=== PATIENT | female | born 1980 ===

== ENCOUNTER 2020-04-10 10:44 | Outpatient (REF) | payer MEDICARE, MEDICAID, SELFPAY ==
--- NOTE | 2020-04-10 10:46 | XR_ITS ---
EXAMINATION: KNEE X-RAY CLINICAL INFORMATION: Right knee pain COMPARISON: Previous x-rays most recent April 2015 TECHNIQUE: Standing AP view of both knees and lateral and sunrise view of the right knee FINDINGS: Right: No acute fracture or dislocation is seen. There is an old healed fracture of the tibial metaphysis and medial tibial plateau. There is mild depression of the medial tibial plateau. Joint spaces are otherwise normal. There is a small joint effusion. There is evidence of old trauma to the left knee with multiple small soft tissue foreign bodies. There is orthopedic pin in the proximal tibial metaphysis. XR/XR knee RT 2V IMPRESSION: Old posttraumatic deformity of the proximal tibia and depression of the medial tibial plateau unchanged from previous exams. Small joint effusion. Evidence of old trauma and surgery to the left knee.
--- NOTE | 2020-04-10 10:46 | XR_ITS ---
EXAMINATION: KNEE X-RAY CLINICAL INFORMATION: Right knee pain COMPARISON: Previous x-rays most recent April 2015 TECHNIQUE: Standing AP view of both knees and lateral and sunrise view of the right knee FINDINGS: Right: No acute fracture or dislocation is seen. There is an old healed fracture of the tibial metaphysis and medial tibial plateau. There is mild depression of the medial tibial plateau. Joint spaces are otherwise normal. There is a small joint effusion. There is evidence of old trauma to the left knee with multiple small soft tissue foreign bodies. There is orthopedic pin in the proximal tibial metaphysis. XR/XR knee standing BI IMPRESSION: Old posttraumatic deformity of the proximal tibia and depression of the medial tibial plateau unchanged from previous exams. Small joint effusion. Evidence of old trauma and surgery to the left knee.
== END 2020-04-10 10:45 | disposition home or self-care (01) ==
LOC: HO.HOSX 10:44
PROVIDERS: PCP Emergency Medicine; Visit Provider Orthopaedic Surgery
DX: M17.31 Unilateral post-traumatic osteoarthritis, right knee (principal)
CPT/HCPCS: 20610; 73560; 73565; 99212; J1040

== ENCOUNTER 2020-05-03 10:17 | Outpatient (REF) | payer MEDICARE, MEDICAID, SELFPAY ==
[2020-05-04 12:43] LABS: BV Int Neg Control Negative (Negative); BV Int Pos Control Positive (Positive)
[2020-05-04 19:17] LABS: C. trachomatis RNA TMA NOT DETECTED (NOT DETECTED); N. gonorrhoeae RNA TMA NOT DETECTED (NOT DETECTED)
[2020-05-07 15:47] LABS: HPV mRNA E6/E7 rflx Not Detected (Not Detected)
== END 2020-05-03 10:18 | disposition home or self-care (01) ==
LOC: HO.LAB 10:17
PROVIDERS: PCP Emergency Medicine; Visit Provider Advanced Practice Midwife
DX: Z12.4 Encounter for screening for malignant neoplasm of cervix (principal); R23.2 Flushing; N91.5 Oligomenorrhea, unspecified; R92.1 Mammographic calcification found on diagnostic imaging of breast; N88.9 Noninflammatory disorder of cervix uteri, unspecified; Z20.2 Contact with and (suspected) exposure to infections with a predominantly sexual mode of transmission
CPT/HCPCS: 36415; 81025; 87480; 87491; 87510; 87591; 87624; 87660; 88141; 88142

== ENCOUNTER 2020-05-17 10:49 | Outpatient (REF) | payer MEDICARE, MEDICAID, SELFPAY ==
--- NOTE | 2020-05-17 10:53 | US_ITS ---
EXAMINATION: ULTRASOUND OF THE PELVIS CLINICAL INFORMATION: Non inflammatory disorder of the cervix.. COMPARISON: 05/11/2019. TECHNIQUE: Transabdominal and transvaginal pelvic ultrasound. A transvaginal study was performed in addition to the transabdominal study which did not yield an adequate examination of the uterus and ovaries due to superimposed distended gas-filled loops of bowel. FINDINGS: The uterus is normal in size with heterogeneous appearance, measuring 9.2 x 5.2 x 6.2 cm longitudinally, anteroposteriorly and transversely. The endometrial stripe thickness is normal, measuring 0.9 cm in thickness. No focal myometrial mass is seen. Multiple nabothian cysts are seen at the cervix. The left ovary has been removed. The right ovary measures 7.1 x 4.4 x 2.8 cm for a volume of 45.8 mL. There is a dominant exophytic cyst present. This measures 4.8 x 2.7 x 2.7 cm. This appears simple. There are also somewhat prominent follicles noted, measuring up to 1.7 cm. Small amount of free fluid. US/US pelvic complete IMPRESSION: Somewhat heterogeneous appearance of the uterus with no focal mass identified. Multiple nabothian cysts at the cervix. Dominant right ovarian cyst measuring 4.8 cm. Additional smaller follicles noted. No solid mass. Small amount of free fluid in the pelvis.
--- NOTE | 2020-05-17 10:53 | US_ITS ---
EXAMINATION: ULTRASOUND OF THE PELVIS CLINICAL INFORMATION: Non inflammatory disorder of the cervix.. COMPARISON: 05/11/2019. TECHNIQUE: Transabdominal and transvaginal pelvic ultrasound. A transvaginal study was performed in addition to the transabdominal study which did not yield an adequate examination of the uterus and ovaries due to superimposed distended gas-filled loops of bowel. FINDINGS: The uterus is normal in size with heterogeneous appearance, measuring 9.2 x 5.2 x 6.2 cm longitudinally, anteroposteriorly and transversely. The endometrial stripe thickness is normal, measuring 0.9 cm in thickness. No focal myometrial mass is seen. Multiple nabothian cysts are seen at the cervix. The left ovary has been removed. The right ovary measures 7.1 x 4.4 x 2.8 cm for a volume of 45.8 mL. There is a dominant exophytic cyst present. This measures 4.8 x 2.7 x 2.7 cm. This appears simple. There are also somewhat prominent follicles noted, measuring up to 1.7 cm. Small amount of free fluid. US/US transvaginal IMPRESSION: Somewhat heterogeneous appearance of the uterus with no focal mass identified. Multiple nabothian cysts at the cervix. Dominant right ovarian cyst measuring 4.8 cm. Additional smaller follicles noted. No solid mass. Small amount of free fluid in the pelvis.
== END 2020-05-17 10:50 | disposition home or self-care (01) ==
LOC: HO.US 10:49
PROVIDERS: Visit Provider Advanced Practice Midwife
DX: N88.9 Noninflammatory disorder of cervix uteri, unspecified (principal)
CPT/HCPCS: 76830; 76856

== ENCOUNTER 2020-05-22 13:51 | Outpatient (REF) | payer MEDICARE, MEDICAID, SELFPAY ==
[2020-05-22 15:28] LABS: Thyroid Stimulating Hormone 0.86 uIU/mL (0.32-4.0)
[2020-05-23 09:07] LABS: Follicle Stimulating Hormone 7.2 mIU/mL
[2020-05-23 09:57] LABS: C. trachomatis RNA TMA NOT DETECTED (NOT DETECTED); N. gonorrhoeae RNA TMA NOT DETECTED (NOT DETECTED)
== END 2020-05-22 13:52 | disposition home or self-care (01) ==
LOC: HO.LAB 13:51
PROVIDERS: Visit Provider Advanced Practice Midwife
DX: N91.5 Oligomenorrhea, unspecified (principal); R23.2 Flushing; Z11.3 Encounter for screening for infections with a predominantly sexual mode of transmission; Z11.8 Encounter for screening for other infectious and parasitic diseases
CPT/HCPCS: 36415; 83001; 84443; 87491; 87591

== ENCOUNTER → 2020-06-05 14:12 | Outpatient (BNVA) | payer MEDICARE, MEDICAID, SELFPAY | PROVIDERS: Visit Provider Advanced Practice Midwife | DX: Z71.2 Person consulting for explanation of examination or test findings (principal); R87.610 Atypical squamous cells of undetermined significance on cytologic smear of cervix (ASC-US); N88.9 Noninflammatory disorder of cervix uteri, unspecified | CPT/HCPCS: 99212 ==

== ENCOUNTER 2020-06-19 07:54 | Outpatient (REF) | payer MEDICARE, MEDICAID, SELFPAY | END 2020-06-19 07:55 | disposition home or self-care (01) | LOC: HO.LAB 07:54 | PROVIDERS: Visit Provider Obstetrics & Gynecology | DX: R87.610 Atypical squamous cells of undetermined significance on cytologic smear of cervix (ASC-US) (principal) | CPT/HCPCS: 57454; 81025; 88305 ==

== ENCOUNTER → 2020-07-02 15:20 | Outpatient (BNVA) | payer MEDICARE, MEDICAID, SELFPAY | PROVIDERS: Visit Provider Obstetrics & Gynecology | DX: Z13.89 Encounter for screening for other disorder (principal) | CPT/HCPCS: Q3014 ==

== ENCOUNTER 2020-10-08 10:32 | Outpatient (REF) | payer MEDICARE, MEDICAID, SELFPAY ==
[2020-10-09 02:35] LABS: CT PCR NOT DETECTED (Not Detect.); NG PCR NOT DETECTED (Not Detect.)
[2020-10-09 09:15] LABS: BV Int Neg Control Negative (Negative); BV Int Pos Control Positive (Positive)
== END 2020-10-08 10:33 | disposition home or self-care (01) ==
LOC: HO.LAB 10:32
PROVIDERS: Visit Provider Advanced Practice Midwife
DX: Z20.2 Contact with and (suspected) exposure to infections with a predominantly sexual mode of transmission (principal)
CPT/HCPCS: 87480; 87491; 87510; 87591; 87660; 99212

== ENCOUNTER → 2020-10-10 07:58 | Outpatient (BNVA) | payer MEDICARE, MEDICAID, SELFPAY | PROVIDERS: Visit Provider Orthopaedic Surgery | DX: M17.31 Unilateral post-traumatic osteoarthritis, right knee (principal); Z90.722 Acquired absence of ovaries, bilateral | CPT/HCPCS: 20610; 99212; J1040 ==

== ENCOUNTER 2020-11-12 09:28 | Outpatient (REF) | payer MEDICARE, MEDICAID, SELFPAY ==
--- NOTE | ~2020-11-12 | MM_ITS ---
EXAMINATION: MM SCREENING DIGITAL BREAST TOMOSYNTHESIS, BILATERAL CLINICAL INFORMATION: Screening. Asymptomatic. Benign left stereotactic biopsy 02/10/2019 (Benign breast parenchyma with columnar cell changes, duct ectasia and stromal fibrosis; microcalcifications associated with columnar cell changes and terminal duct lobular units; negative for atypia or malignancy). The lifetime risk of breast cancer based on the Tyrer-Cuzick Model is 8%. COMPARISON: Mammography: 11/09/2019, 02/10/2019, 02/02/2019, 05/17/2015 TECHNIQUE: Digital breast tomosynthesis is performed in both the craniocaudal and mediolateral oblique views along with computer-aided detection (CAD). Synthesized 2D images are generated from the tomosynthesis. FINDINGS: The breasts are heterogeneously dense, which may obscure small masses (ACR BI-RADS breast composition Category c). There are no significant masses, abnormal calcifications, or other abnormalities. Parenchymal pattern is similar to prior studies. No developing density. There is biopsy clip marker central mid 3:00 left breast. Scattered bilateral punctate calcifications are similar to prior exam. The axilla and skin contours are unremarkable. MM/MM tomosynthesis screening BI IMPRESSION: No mammographic evidence of malignancy. ASSESSMENT: BI-RADS 2: Benign RECOMMENDATION: Routine annual mammography screening. This patient's information was entered into a reminder system with a target due date for their next mammogram.
== END 2020-11-12 09:29 | disposition home or self-care (01) ==
LOC: HO.MAMMO 09:28
PROVIDERS: PCP Internal Medicine; Visit Provider Advanced Practice Midwife
DX: Z12.31 Encounter for screening mammogram for malignant neoplasm of breast (principal)
CPT/HCPCS: 77063; 77067

== ENCOUNTER 2021-01-09 15:02 | Outpatient (REF) | payer MEDICARE, MEDICAID, SELFPAY ==
[2021-01-10 09:54] LABS: CT PCR NOT DETECTED (Not Detect.); NG PCR NOT DETECTED (Not Detect.)
[2021-01-10 11:02] LABS: BV Int Neg Control Negative (Negative); BV Int Pos Control Positive (Positive)
== END 2021-01-09 15:03 | disposition home or self-care (01) ==
LOC: HO.LAB 15:02
PROVIDERS: Visit Provider Advanced Practice Midwife
DX: N89.8 Other specified noninflammatory disorders of vagina (principal); Z20.2 Contact with and (suspected) exposure to infections with a predominantly sexual mode of transmission; Z90.721 Acquired absence of ovaries, unilateral
CPT/HCPCS: 87480; 87491; 87510; 87591; 87660; 99212

== ENCOUNTER → 2021-03-08 09:44 | Outpatient (BNVA) | payer MEDICARE, MEDICAID, SELFPAY | PROVIDERS: Visit Provider Orthopaedic Surgery | DX: M17.30 Unilateral post-traumatic osteoarthritis, unspecified knee (principal) | CPT/HCPCS: 99212; J1100 ==

== ENCOUNTER 2021-11-19 08:28 | Outpatient (REF) | payer MEDICARE, MEDICAID, SELFPAY ==
--- NOTE | ~2021-11-19 | MM_ITS ---
EXAMINATION: MM SCREENING DIGITAL BREAST TOMOSYNTHESIS, BILATERAL CLINICAL INFORMATION: Screening. Asymptomatic. The lifetime risk of breast cancer based on the Tyrer-Cuzick Model is 8%. COMPARISON: Mammography: 11/12/2020, 11/09/2019, 02/10/2019, 02/02/2019, 01/27/2019, 05/17/2015 TECHNIQUE: Digital breast tomosynthesis is performed in both the craniocaudal and mediolateral oblique views along with computer-aided detection (CAD). Synthesized 2D images are generated from the tomosynthesis. FINDINGS: The breasts are heterogeneously dense, which may obscure small masses (ACR BI-RADS breast composition Category c). Parenchymal pattern is similar to prior studies. There is no interval mass or developing density or architectural abnormality. Left breast has a biopsy clip marker anterior 3:00 position. The bilateral axilla and skin contours are unremarkable. Right breast focal grouped punctate calcifications central breast mid depth, questionably increased versus superimposed digital processing pseudo calcification. MM/MM tomosynthesis screening BI IMPRESSION: Right: -Punctate calcifications central breast mid depth questionably increased versus superimposed digital processing pseudo calcification. Left: -No mammographic evidence of malignancy. ASSESSMENT: BI-RADS 0: Incomplete - Need Additional Imaging Evaluation RECOMMENDATION: 1. Additional views of the right breast (magnification CC, magnification ML). 2. Radiology department staff will contact the patient for additional imaging. This patient's information was entered into a reminder system with a target due date for their next mammogram.
== END 2021-11-19 08:29 | disposition home or self-care (01) ==
LOC: HO.MAMMO 08:28
PROVIDERS: Visit Provider Advanced Practice Midwife
DX: Z12.31 Encounter for screening mammogram for malignant neoplasm of breast (principal)
CPT/HCPCS: 77063; 77067

== ENCOUNTER 2021-11-22 09:00 | Outpatient (REF) | payer MEDICARE, MEDICAID, SELFPAY ==
--- NOTE | ~2021-11-22 | MM_ITS ---
EXAMINATION: MM DIAGNOSTIC DIGITAL MAMMOGRAPHY, RIGHT CLINICAL INFORMATION: Calcifications. COMPARISON: Mammography: 11/19/2021 and studies dating back to 04/27/2015. TECHNIQUE: Digital mammography was performed in the following views: Spot magnification views of the right breast in craniocaudal and 90 degree mediolateral views. FINDINGS: The breasts are heterogeneously dense, which may obscure small masses (ACR BI-RADS breast composition Category c). The calcifications about the central aspect of the right breast have a rounded appearance without evidence of linear or branching forms and are likely benign. Recommend 6-month follow up right breast mammogram with magnification views. Results are provided to the patient at time of visit by the technologist. MM/MM added views RT IMPRESSION: Probable benign right breast calcifications for follow up in 6 months. ASSESSMENT: BI-RADS 3: Probably Benign RECOMMENDATION: Diagnostic mammography in 6 months. This patient's information was entered into a reminder system with a target due date for their next mammogram.
== END 2021-11-22 09:01 | disposition home or self-care (01) ==
LOC: HO.MAMMO 09:00
PROVIDERS: Visit Provider Advanced Practice Midwife
DX: R92.1 Mammographic calcification found on diagnostic imaging of breast (principal)
CPT/HCPCS: 77065

== ENCOUNTER 2021-12-16 11:46 | Outpatient (REF) | payer MEDICARE, MEDICAID, SELFPAY ==
[2021-12-16 17:01] LABS: CT PCR NOT DETECTED (Not Detect.); NG PCR NOT DETECTED (Not Detect.)
[2021-12-17 12:55] LABS: BV Int Neg Control Negative (Negative); BV Int Pos Control Positive (Positive)
[2021-12-19 08:32] LABS: HPV mRNA E6/E7 rflx Not Detected (Not Detected)
== END 2021-12-16 11:47 | disposition home or self-care (01) ==
LOC: HO.LAB 11:46
PROVIDERS: Visit Provider Advanced Practice Midwife
DX: Z01.411 Encounter for gynecological examination (general) (routine) with abnormal findings (principal); Z11.51 Encounter for screening for human papillomavirus (HPV); R10.2 Pelvic and perineal pain; Z20.2 Contact with and (suspected) exposure to infections with a predominantly sexual mode of transmission; R14.0 Abdominal distension (gaseous); Z87.42 Personal history of other diseases of the female genital tract
CPT/HCPCS: 87480; 87491; 87510; 87591; 87624; 87660; 88142; 99212

== ENCOUNTER 2021-12-18 11:52 | Outpatient (REF) | payer MEDICARE, MEDICAID, SELFPAY ==
[2021-12-18 14:28] LABS: Syphilis Screen Nonreactive (Nonreactive)
[2021-12-19 05:21] LABS: HBc Num1 0.07 S/CO (0.00-0.79); HIV AB/AG Nonreactive (Nonreactive); HIV Num 1 0.09 S/CO (0.00-0.99); Hepatitis B Core Antibody Nonreactive (Nonreactive); ~HepC Num1 0.09 S/CO (0.00-0.79); ~Hepatitis C Antibody Nonreactive (Nonreactive)
== END 2021-12-18 11:53 | disposition home or self-care (01) ==
LOC: HO.LAB 11:52
PROVIDERS: Visit Provider Advanced Practice Midwife
DX: Z11.4 Encounter for screening for human immunodeficiency virus [HIV] (principal); Z20.2 Contact with and (suspected) exposure to infections with a predominantly sexual mode of transmission
CPT/HCPCS: 36415; 86704; 86780; 86803; 87389

== ENCOUNTER 2022-03-11 11:04 | Outpatient (REF) | payer MEDICARE, MEDICAID, SELFPAY ==
--- NOTE | ~2022-03-11 | US_ITS ---
EXAMINATION: US PELVIS CLINICAL INFORMATION: Pelvic pain. History of ovarian cyst. History of left oophorectomy. COMPARISON: None. TECHNIQUE: Ultrasound of the pelvis is performed using both transabdominal and transvaginal transducers along with Doppler. Transvaginal imaging is performed due to inadequate visualization transabdominally. FINDINGS: Uterus: The uterus is retroverted, heterogeneous, enlarged and measures 10.5 cm in length, 5.1 mL in AP and 7.3 cm in transverse dimension. The double wall endometrial thickness is 0.9 cm. There is small myometrial anechoic cyst measuring 0.35 cm and the body of the uterus. No visible fibroid. Small anechoic cysts are seen in the cervix. Adnexa: The left ovary has been removed and not visualized. Right ovary measures 5.4 x 6.5 x 3.0 cm and volume 55.1 mL. There are several anechoic cysts seen. The largest measures 4.3 x 2.4 x 3.0 cm likely involuting corpus luteal cyst. There is no free fluid in the cul-de-sac. US/US pelvic and transvaginal IMPRESSION: 1. Retroverted, enlarged and heterogeneous uterus. No focal lesion seen. 2. Multiple right ovarian cysts with the largest measuring 4.3 cm likely involuting corpus luteal cyst. 3. The left ovary has been removed. 4. Nabothian cysts in the cervix. 5. There is no free fluid in the cul-de-sac.
== END 2022-03-11 11:05 | disposition home or self-care (01) ==
LOC: HO.US 11:04
PROVIDERS: Visit Provider Advanced Practice Midwife
DX: R10.2 Pelvic and perineal pain (principal); Z87.42 Personal history of other diseases of the female genital tract
CPT/HCPCS: 76830; 76856

== ENCOUNTER 2022-05-01 10:49 | Outpatient (REF) | payer MEDICARE, MEDICAID, SELFPAY ==
[2022-05-01 12:35] LABS: Hematocrit 41.8 % (37.0-47.0); Hemoglobin 13.4 g/dl (12.0-16.0); Mean Corpuscular HGB Conc 32.1 g/dl (31.0-35.0); Mean Corpuscular Hemoglobin 29.6 pg (27.0-33.0); Mean Corpuscular Volume 92.3 fL (80.0-98.0); Mean Platelet Volume 12.7 fL (9.4-12.3); Platelet Count 254 X10*3/uL (160-400); Red Blood Count 4.53 X10*6/uL (4.20-5.50); Red Cell Distribution Width 12.1 % (11.0-16.0); White Blood Count 11.8 X10*3/uL (4.8-10.8)
== END 2022-05-01 10:50 | disposition home or self-care (01) ==
LOC: HO.LAB 10:49
PROVIDERS: Visit Provider Advanced Practice Midwife
DX: N92.0 Excessive and frequent menstruation with regular cycle (principal); R10.2 Pelvic and perineal pain; Z71.3 Dietary counseling and surveillance
CPT/HCPCS: 36415; 85027; 99212

== ENCOUNTER 2022-05-27 11:28 | Outpatient (REF) | payer MEDICARE, MEDICAID, SELFPAY ==
--- NOTE | ~2022-05-27 | US_ITS ---
EXAMINATION: US PELVIS CLINICAL INFORMATION: History of other diseases of the female genital tract; the last menstrual period was on 05/10/2022. The left ovary is surgically absent. COMPARISON: Pelvic ultrasound dated 03/11/2022. TECHNIQUE: Ultrasound of the pelvis is performed using both transabdominal and transvaginal transducers along with Doppler. Transvaginal imaging is performed due to inadequate visualization transabdominally. FINDINGS: Uterus: The uterus is retroverted and retroflexed. The uterus measures 11.3 x 4.1 x 5.1 cm. Complex cysts are noted within the cervix, the largest measuring 1.3 x 0.8 x 0.8 cm. These likely represent nabothian cysts. The double wall endometrial thickness is 1.2 mm. The uterus is smooth in contour and has normal myometrial echogenicity. No visible fibroid. Adnexa: There is normal color flow to the adnexa. The left ovary is surgically absent. There is no right ovarian torsion. There is no pelvic ascites or fluid collection. Right ovary measures 3.4 x 2.9 x 1.9 cm, volume 9.8 mL. The right ovary contains a 1.3 x 1.2 x 1.2 cm corpus luteum cyst and a 1.3 cm maximal diameter dominant follicle. Adjacent to the right ovary, a 1.1 x 0.6 x 0.9 cm shadowing calcification is seen. A 4.6 x 2.6 x 3.3 cm adnexal cyst is seen, possibly a paraovarian cyst. US/US pelvic and transvaginal IMPRESSION: 1. There are complex cysts seen within the cervix, likely nabothian cysts. 2. A 1.3 cm right adnexal coarse calcification may represent a dermoid tumor. This could be further evaluated with pelvic MRI, if clinically indicated. Gynecology evaluation and management are recommended. 3. There is a continued stable 4.6 cm in maximal diameter right adnexal cyst, possibly a paraovarian cyst. 4. A small right ovarian corpus luteum cyst and dominant follicle are of incidental note. 5. The left ovary is surgically absent.
== END 2022-05-27 11:29 | disposition home or self-care (01) ==
LOC: HO.US 11:28
PROVIDERS: Visit Provider Internal Medicine
DX: Z87.42 Personal history of other diseases of the female genital tract (principal); Z90.721 Acquired absence of ovaries, unilateral
CPT/HCPCS: 76830; 76856

== ENCOUNTER → 2022-06-11 13:11 | Outpatient (BNVA) | payer MEDICARE, MEDICAID, SELFPAY | PROVIDERS: Visit Provider Advanced Practice Midwife | DX: Z71.2 Person consulting for explanation of examination or test findings (principal); R10.2 Pelvic and perineal pain; N83.201 Unspecified ovarian cyst, right side; N88.8 Other specified noninflammatory disorders of cervix uteri | CPT/HCPCS: 99212 ==

== ENCOUNTER 2022-06-24 08:15 | Outpatient (REF) | payer MEDICARE, MEDICAID, SELFPAY ==
--- NOTE | ~2022-06-24 | MR_ITS ---
EXAMINATION: MRI PELVIS WITH AND WITHOUT CONTRAST CLINICAL INFORMATION: Reason for Exam N83.201 - Unspecified ovarian cyst, right side COMPARISON: No previous MRI. Pelvic ultrasound 05/27/2012. TECHNIQUE: Multiple routine MRI sequences through the pelvis were obtained on a high-field 1.5 Marichuy MRI before and after the uneventful administration of 7.5 mL of Gadavist gadolinium-based IV contrast. FINDINGS: UTERUS: Retroverted uterus has a normal configuration and measures 8.6 cm [id number] x 5.4 cm anterior-posterior x 6.3 cm transverse. Normal endometrial thickness, 1 cm. Junctional zone is normal in signal and thickness. Small cyst in the left uterine fundus along the junctional zone. No focal uterine mass seen. CERVIX: Numerous nabothian cysts are present. VAGINA: Normal; no mass seen. RIGHT OVARY: The right ovary measures 4.1 x 2.5 x 2.8 cm. There are multiple follicles present. Inferior and posterior to the right ovary there is a paraovarian cyst measuring 4.2 x 2.7 x 2.6 cm. No abnormal enhancement. No soft tissue nodular component. No adnexal mass. LEFT OVARY: The left ovary is absent. No adnexal mass. KIDNEYS: Two normally positioned kidneys are seen. No hydronephrosis. Parapelvic cysts are noted. No specific follow-up recommended. BLADDER: Urinary bladder normal. PELVIC FREE FLUID: No free fluid or ascites. LYMPH NODES: No pathologically enlarged lymph nodes. OSSEOUS STRUCTURES: No acute or suspicious osseous abnormalities. MR/MR pelvis wo/w con IMPRESSION: 1. Right paraovarian cyst measuring up to 4.2 cm. No abnormal enhancement or soft tissue nodular component. This is simple appearing. No follow-up imaging recommended. 2. Multiple nabothian cysts are present.
== END 2022-06-24 08:16 | disposition home or self-care (01) ==
LOC: HO.MRI 08:15
PROVIDERS: Visit Provider Advanced Practice Midwife
DX: N83.201 Unspecified ovarian cyst, right side (principal)
CPT/HCPCS: 72197; A9585

== ENCOUNTER 2022-06-26 13:50 | Outpatient (REF) | payer MEDICARE, MEDICAID, SELFPAY ==
--- NOTE | ~2022-06-26 | MM_ITS ---
EXAMINATION: MM DIAGNOSTIC DIGITAL MAMMOGRAPHY, RIGHT CLINICAL INFORMATION: Short interval six-month follow-up probable benign round calcifications mid central right breast. The lifetime risk of breast cancer based on the Tyrer-Cuzick Model is 8%. COMPARISON: Mammography: 11/22/2021, 11/19/2021 (BI-RADS 0), 11/12/2020, 11/09/2019 TECHNIQUE: Digital mammography is performed in craniocaudal and mediolateral oblique views along with computer-aided detection (CAD). Additional magnification right CC and magnification right ML views are obtained. FINDINGS: The breasts are heterogeneously dense, which may obscure small masses (ACR BI-RADS breast composition Category c). Parenchymal pattern is similar to prior studies and there is no developing density or interval mass or architectural abnormality. The axilla and skin contours are unremarkable. There are a few small round benign-appearing calcifications mid central right breast slightly increased in number since 2019 and stable from prior diagnostic exam 11/22/2021. No pleomorphic types or ductal distribution. Right breast calcifications will be reassessed again at time of annual bilateral mammography, due in 6 months. Results are provided to the patient at time of visit by the technologist. MM/MM diagnostic mammo unilat RT IMPRESSION: Benign-appearing calcifications mid central right breast stable from prior diagnostic mammography. ASSESSMENT: BI-RADS 3: Probably Benign RECOMMENDATION: Diagnostic mammography at time of annual bilateral exam, due in 6 months. This patient's information was entered into a reminder system with a target due date for their next mammogram.
== END 2022-06-26 13:51 | disposition home or self-care (01) ==
LOC: HO.MAMMO 13:50
PROVIDERS: Visit Provider Advanced Practice Midwife
DX: R92.1 Mammographic calcification found on diagnostic imaging of breast (principal)
CPT/HCPCS: 77062; 77065

== ENCOUNTER → 2022-07-17 13:13 | Outpatient (BNVA) | payer MEDICARE, MEDICAID, SELFPAY | PROVIDERS: Visit Provider Advanced Practice Midwife | DX: Z71.2 Person consulting for explanation of examination or test findings (principal) | CPT/HCPCS: 99212 ==

== ENCOUNTER 2022-11-13 09:49 | Outpatient (REF) | payer MEDICARE, MEDICAID, SELFPAY ==
--- NOTE | ~2022-11-13 | XR_ITS ---
EXAMINATION: XR KNEE, STANDING BILATERAL XR KNEE, BILATERAL CLINICAL INFORMATION: Right knee pain. COMPARISON: 04/08/2020. TECHNIQUE: Standing AP view of both knees and lateral and sunrise view of the bilateral knees. FINDINGS: RIGHT KNEE: Redemonstration of deformity of the tibial metaphysis and deformity and depression of the medial tibial plateau compatible with given history of old healed fracture. Small joint effusion. LEFT KNEE: Redemonstration of deformity of left knee and proximal tibia compatible with history of old trauma. Multiple punctate radiodensities again seen in the soft tissues of the left knee compatible with foreign bodies. Small joint effusion. Redemonstration of an orthopedic pin in the proximal tibial metaphysis. XR/XR knee standing BI IMPRESSION: Redemonstration of deformity of bilateral knees compatible with given history of prior trauma. Small bilateral joint effusions.
--- NOTE | ~2022-11-13 | XR_ITS ---
EXAMINATION: XR KNEE, STANDING BILATERAL XR KNEE, BILATERAL CLINICAL INFORMATION: Right knee pain. COMPARISON: 04/08/2020. TECHNIQUE: Standing AP view of both knees and lateral and sunrise view of the bilateral knees. FINDINGS: RIGHT KNEE: Redemonstration of deformity of the tibial metaphysis and deformity and depression of the medial tibial plateau compatible with given history of old healed fracture. Small joint effusion. LEFT KNEE: Redemonstration of deformity of left knee and proximal tibia compatible with history of old trauma. Multiple punctate radiodensities again seen in the soft tissues of the left knee compatible with foreign bodies. Small joint effusion. Redemonstration of an orthopedic pin in the proximal tibial metaphysis. XR/XR knee LT 2V IMPRESSION: Redemonstration of deformity of bilateral knees compatible with given history of prior trauma. Small bilateral joint effusions.
--- NOTE | ~2022-11-13 | XR_ITS ---
EXAMINATION: XR KNEE, STANDING BILATERAL XR KNEE, BILATERAL CLINICAL INFORMATION: Right knee pain. COMPARISON: 04/08/2020. TECHNIQUE: Standing AP view of both knees and lateral and sunrise view of the bilateral knees. FINDINGS: RIGHT KNEE: Redemonstration of deformity of the tibial metaphysis and deformity and depression of the medial tibial plateau compatible with given history of old healed fracture. Small joint effusion. LEFT KNEE: Redemonstration of deformity of left knee and proximal tibia compatible with history of old trauma. Multiple punctate radiodensities again seen in the soft tissues of the left knee compatible with foreign bodies. Small joint effusion. Redemonstration of an orthopedic pin in the proximal tibial metaphysis. XR/XR knee RT 2V IMPRESSION: Redemonstration of deformity of bilateral knees compatible with given history of prior trauma. Small bilateral joint effusions.
== END 2022-11-13 09:50 | disposition home or self-care (01) ==
LOC: HO.HOSX 09:49
PROVIDERS: Visit Provider Orthopaedic Surgery
DX: M17.31 Unilateral post-traumatic osteoarthritis, right knee (principal); M17.32 Unilateral post-traumatic osteoarthritis, left knee; M16.11 Unilateral primary osteoarthritis, right hip
CPT/HCPCS: 20610; 73560; 73565; 99212; J1100

== ENCOUNTER 2022-11-13 10:17 | Outpatient (AMB) | payer MEDICARE, MEDICAID, SELFPAY ==
--- NOTE | 2022-11-13 10:48 | MHC.OFFVIS ---
Intake Intake Visit Reasons: OV- Rt. knee pain OA last inj 03/08/21 Intake Note: Nae is a 41 year old female who presents today for a follow up of her right knee, last injection was done 10/10/20. knee surgery in [place] to straighten her knee when she was 6. She underwent removal of hardware iat [facility] when she was 14. This was in both legs but her right knee is the painful. She would like to try repeat injection today Allergies No Known Allergies Allergy (Verified 06/11/22 13:15) HPI OV- Rt. knee pain OA last inj 03/08/21 HPI Details Nae is a 41 year old woman who presents with complains of right knee pain. She has post-traumatic knee OA. She has pain with daily activity with a hx of relief from injections, and her last was on 03/08/21. She had bilateral knee surgery in [place] to straighten her knee when she was 6. She underwent removal of hardware at [facility] when she was 14. She denies any left knee pain. She also complains of right hip pain, localized to the groin. She has completed a hip MRI. [facility] Medical History ASCUS of cervix with negative high risk HPV Club foot of both lower extremities Depression with anxiety Heavy menses History of abnormal cervical Pap smear Pelvic pain Surgical History History of tubal ligation Hx of unilateral oophorectomy Family History Brother Colon cancer Mother Ureter cancer Social History Alcohol intake: current Alcohol intake frequency: a few times a week Current occupational status: disabled Current occupation: Left Handed Sexual orientation: Straight/Heterosexual Gender identity: Female Review of Systems Const All systems reviewed & are unremarkable except as noted in HPI and below Physical Exam Const General: no acute distress and alert Orientation/consciousness: patient oriented x3 HEENT Head: Yes normocephalic and Yes atraumatic Eyes EOM: EOMs intact bilaterally Resp Effort & Inspection: normal respiratory effort and able to speak in complete sentences Cardio Jugular venous distension: no JVD Skin General skin exam: turgor normal Rashes: no rashes Neuro General: patient oriented x3 Extrem Other: Right Knee: valgus knee Subjective pain, objectively minimal pain on exam 1+ laxity to valgus stress testing Well-healed lateral incision Right Hip: Mild-moderate pain with extreme IR, adduction, flexion Psych Appearance: grossly normal Affect: normal affect Attitude: cooperative Office Procedures Joint Injection/Drain Joint Injection/Drain Details: Injected 1 mL of Decadron and 3 mL 1% lidocaine and 3 mL of 0.25% Marcaine. Site was prepped using aseptic technique. Patient tolerated the procedure well. Primary Site: right knee Approach Used: anterolateral Coding 24150 - Large joint Procedure code (CPT) selection complete Results Reviewed Results Reviewed: 11/13/22 10:48 BUPivacaine MPF 0.25 % [Sensorcaine-MPF 0.25% 10 ML] 10 ml .ROUTE .STK-MED ONE Lidocaine HCl 2 % MPF [Xylocaine 2 % MPF] 5 ml .ROUTE .STK-MED ONE dexAMETHasone sod phosphate [Decadron] 4 mg .ROUTE .STK-MED ONE I personally reviewed relevant radiographs. Severe right knee medial compartment OA, S/P BLANCA Mild-moderate left knee OA, S/P BLANCA I personally reviewed relevant MR images Mild right hip OA. Assessment & Plan Assessment & Plan (1) Post-traumatic osteoarthritis of right knee: Code(s): M17.31 - Unilateral post-traumatic osteoarthritis, right knee Plan: This is a 41 year old woman with severe medial compartment post-traumatic OA of the right knee, S/P BLANCA. She has pain with daily activity. She was last seen, and injected on 03/08/21, with good relief. I discussed her diagnosis and treatment options. She does not want injections. I injected her right knee today, which she tolerated well. She can follow up prn. (2) Osteoarthritis of right hip: Code(s): M16.11 - Unilateral primary osteoarthritis, right hip Plan: Reviewed MRI. (3) Post-traumatic osteoarthritis of left knee: Code(s): M17.32 - Unilateral post-traumatic osteoarthritis, left knee Plan Scribed for Francisco J Marquis MD by Bryn Emery medical case manager, on 11/13/22 at 11:00 AM, EST. Orders: Orders XR knee LT 2V 11/13/22 M25.569 - Pain in unspecified knee XR knee RT 2V 11/13/22 M25.569 - Pain in unspecified knee XR knee standing BI 11/13/22 M25.569 - Pain in unspecified knee Coding Level of Care Code Est Pt Level 4 (77886) Diagnoses Post-traumatic osteoarthritis of right knee M17.31 Osteoarthritis of right hip M16.11 Post-traumatic osteoarthritis of left knee M17.32 CPT Codes Coding - 71860 Large joint: 57550 - Large joint ([id number])
== END 2022-11-13 11:13 | disposition home or self-care (01) ==
PROVIDERS: Visit Provider Orthopaedic Surgery
DX: M17.31 Unilateral post-traumatic osteoarthritis, right knee (principal); M16.11 Unilateral primary osteoarthritis, right hip; M17.32 Unilateral post-traumatic osteoarthritis, left knee
CPT/HCPCS: 20610; 99214

== ENCOUNTER 2023-02-02 12:49 | Outpatient (REF) | payer MEDICARE, MEDICAID, SELFPAY ==
--- NOTE | ~2023-02-02 | MM_ITS ---
EXAMINATION: MM DIAGNOSTIC DIGITAL BREAST TOMOSYNTHESIS, BILATERAL CLINICAL INFORMATION: Six-month short interval follow-up probably benign round calcifications mid central right breast. Due for yearly screening. COMPARISON: Mammography: 06/26/2022. 11/22/2021, 11/19/2021, 11/12/2020, 11/09/2019. TECHNIQUE: Digital breast tomosynthesis is performed in both the craniocaudal and mediolateral oblique views along with computer-aided detection (CAD). Synthesized 2D images are generated from the tomosynthesis. In addition, spot magnification right CC and right ML views were obtained of the right breast. FINDINGS: There are scattered areas of fibroglandular density (ACR BI-RADS breast composition Category b). A tiny group of punctate, round, non-pleomorphic calcifications is present in the central slightly upper slightly lateral right breast, middle one third. The are unchanged in appearance and morphology when compared with prior examinations dating back to 11/22/2021. These have a probably benign appearance and morphology. There are stable in number. There are no linear, casting, or branching forms. There is a post benign biopsy clip in the left breast, lower slightly outer quadrant, middle one third. This is likely a second post benign biopsy clip in the 12:00 axis of the right breast, just above the nipple line. Stable intramammary lymph node in the axillary tail of the left breast. There are no suspicious masses, suspicious grouped calcifications, or areas of architectural distortion in either breast. The parenchymal pattern is stable from prior exams. MM/MM tomosynthesis diagnostic BI IMPRESSION: There are no significant changes from prior study. Stable probably benign calcifications right breast centrally. Stable benign findings. No findings suspicious for malignancy in either breast. ASSESSMENT: BI-RADS BI-RADS 3 - Probably benign finding(s) - 6 month follow-up suggested RECOMMENDATION: 6 Month F/U Results were provided to the patient at time of visit by the technologist. This patient's information was entered into a reminder system with a target due date for their next mammogram.
== END 2023-02-02 12:50 | disposition home or self-care (01) ==
LOC: HO.MAMMO 12:49
PROVIDERS: Visit Provider Advanced Practice Midwife
DX: R92.1 Mammographic calcification found on diagnostic imaging of breast (principal)
CPT/HCPCS: 77062; 77066

== ENCOUNTER → 2023-02-02 13:00 | Outpatient (BNV) | payer MEDICARE, MEDICAID, SELFPAY | PROVIDERS: Visit Provider Radiology Diagnostic Radiology | DX: R92.1 Mammographic calcification found on diagnostic imaging of breast (principal); R92.323 Mammographic fibroglandular density, bilateral breasts | CPT/HCPCS: 77062; 77066 ==

== ENCOUNTER 2023-03-23 12:07 | Outpatient (REF) | payer MEDICARE, SELFPAY ==
[2023-03-25 16:13] LABS: TS Negative Control Passed; TS Panel A 0; TS Panel B 0; TS Positive Control Passed; TSpotTB Negative (Negative)
== END 2023-03-23 12:08 | disposition home or self-care (01) ==
LOC: HO.HHCL 12:07
PROVIDERS: Visit Provider Internal Medicine
DX: Z11.1 Encounter for screening for respiratory tuberculosis (principal)
CPT/HCPCS: 36415; 86481

== ENCOUNTER 2023-03-27 10:56 | Outpatient (REF) | payer MEDICARE, SELFPAY ==
[2023-03-27 16:58] LABS: CT PCR NOT DETECTED (Not Detect.); NG PCR NOT DETECTED (Not Detect.)
[2023-03-28 11:58] LABS: BV Int Neg Control Negative (Negative); BV Int Pos Control Positive (Positive)
[2023-04-03 02:04] LABS: HPV mRNA E6/E7 rflx Not Detected (Not Detected)
== END 2023-03-27 10:57 | disposition home or self-care (01) ==
LOC: HO.LNP 10:56
PROVIDERS: Visit Provider Advanced Practice Midwife
DX: Z01.419 Encounter for gynecological examination (general) (routine) without abnormal findings (principal); R87.610 Atypical squamous cells of undetermined significance on cytologic smear of cervix (ASC-US); N94.6 Dysmenorrhea, unspecified; Z20.2 Contact with and (suspected) exposure to infections with a predominantly sexual mode of transmission; Z90.721 Acquired absence of ovaries, unilateral; Z79.899 Other long term (current) drug therapy
CPT/HCPCS: 0353U; 87480; 87510; 87624; 87660; 88142

== ENCOUNTER 2023-03-27 10:56 | Outpatient (AMB) | payer MEDICARE, SELFPAY ==
[2023-03-27 11:16] VITALS: BP 116/70; BMI 33.0
--- NOTE | 2023-03-27 11:16 | MHC.OFFVIS ---
Intake Vital Signs 03/27/23 11:16 Height 5 ft Weight 169 lb BMI 33.0 BP 116/70 Intake Visit Reasons: Annual Intake Note: pain in right hip going to her back when shes in her menses, and also getting a lot of headaches. Calender Wind Up Helper Required: Yes Calender Wind Up Helper Language: Portuguese Information Interpreted: non-clinical & clinical Patient Support Associate: Patient Support Associate Present (Aidyn) Allergies No Known Allergies Allergy (Verified 03/27/23 11:19) Medication List - Last Reconciled 03/27/23 by Christina Jimenez CNM bupropion HCl 150 mg PO QAM [shoe lift Please evaluate and treat for right leg length discrepancy] trazodone 100 mg PO DAILY valacyclovir 1,000 mg PO TID Is last menstrual period known: Yes Last menstrual period: 02/27/23 Post menopausal: No HPI Annual HPI Details Patient is here for obstetrics gynecology md annual exam she has been seen previously mostly by Dawna. She had been evaluated thoroughly for pelvic pain especially on her right side she had a pelvic ultrasound and a MRI that showed a simple paraovarian cyst that did not require any further imaging follow-up. Additionally there were some nabothian cysts. Patient has an extensive history of her being had her left ovary removed when she was a teenager and she also has an extensive history related to her clubfeet and having had leg surgery knee surgery and other issues that impact on pain in her hip because 1 leg is longer than the other. She also had some abnormal findings on breast exam and follows with regular mammograms and will be having 1 coming up and has had a biopsy with Dr. Kaufman in the past She also lately has been getting migraines and the pain seems to focus around her eyes especially left. She will be meeting a new primary care provider soon at the [facility] in [place] reminded her to bring that up there. She has had her tubes tied so she does not need another method of control. She says the pain is the same as when it got evaluated in the spring but she just wonders if is anything else to do about it the pain is really bad the 1st 2 days of her. Which lasts about 4 days total and the 3rd day it is already getting a little bit better her. 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 The pain she associates with her period Is usually in her back and on her right side. [facility] Medical History Heavy menses History of abnormal cervical Pap smear ASCUS of cervix with negative high risk HPV Pelvic pain Club foot of both lower extremities Depression with anxiety Surgical History Hx of unilateral oophorectomy History of tubal ligation Family History Brother Colon cancer Mother Ureter cancer Social History Alcohol intake: current Alcohol intake frequency: a few times a week Current occupational status: disabled Current occupation: Left Handed Sexual orientation: Straight/Heterosexual Gender identity: Female Female Reproductive History Menstrual Age of Menarche: 9 Duration of menses: 3-5 days Date of last menstrual period: 02/27/23 control method: other (tubal ligation) Total pregnancies: 4 Full term: 3 Number of Living Children: 3 Ab spontaneous: 1 Date of last pap smear: 12/17/21 (negative) History of abnormal pap smear: Yes (2020 ASCUS) Date of Mammogram: 02/02/23 Physical Exam Vital Signs: Last Vital Signs BP 116/70 03/27/23 11:16 BMI result Body Mass Index 33.0 Const General: healthy appearing, comfortable, no acute distress, well developed and alert Nutritional Appearance: average body habitus Orientation/consciousness: patient oriented x3 Limitations: no limitations HEENT Head: Yes normocephalic Neck Neck: Yes normal visual inspection Thyroid: Thyroid normal Chest Chest palpation & inspection: normal inspection of the chest Breast/axilla inspection: normal inspection of the breasts and normal inspection of the axillae Breast/axilla palpation: normal palpation of the breasts and normal palpation of the axillae Resp Effort & Inspection: normal respiratory effort GI Inspection: Yes normal to inspection, No Abdominal wall edema and No distended Palpation (GI): Soft to palpation and nontender Other: Normal speculum exam. Cervix parous smooth pink with nabothian cysts especially above os. Uterus is markedly retroverted cervix is very anterior. Good tone with Kegel adnexa not tender palpable on right but not on left. General: Yes bladder normal to palpation External Female Exam: normal external appearance and normal appearance of the urethra Speculum Exam - Vagina: normal appearance of the vagina, normal palpation and normal vaginal discharge Speculum Exam - Cervix: normal appearance of the cervix, normal palpation and nontender Bimanual exam- vagina & uterus: normal bimanual exam, normal palpation, uterine size normal, bladder normal to palpation, consistency normal, normal palpation, uterine mobility normal, uterine shape normal, No Cervical tenderness present, non-tender and no cervical motion tenderness Bimanual Exam- Adnexa, other: normal adnexae, no masses, normal and No adnexal tenderness Neuro General: patient oriented x3 Results Reviewed Results Reviewed: Patient: Nae Joseph MR#: [id number] : 1980 Acct:[id number] Age/Sex: 41 / F ADM Date: 06/24/22 Loc: HO.MRI Attending Dr: Dawna Casiano CNM Ordering Physician: Dawna Casiano CNM Date of Service: 06/24/22 Procedure(s): MR pelvis wo/w con Accession Number(s): [id number] cc: Dawna Casiano CNM~ EXAMINATION: MRI PELVIS WITH AND WITHOUT CONTRAST CLINICAL INFORMATION: Reason for Exam N83.201 - Unspecified ovarian cyst, right side COMPARISON: No previous MRI. Pelvic ultrasound 05/27/2012. TECHNIQUE: Multiple routine MRI sequences through the pelvis were obtained on a high-field 1.5 Marichuy MRI before and after the uneventful administration of 7.5 mL of Gadavist gadolinium-based IV contrast. FINDINGS: UTERUS: Retroverted uterus has a normal configuration and measures 8.6 cm [id number] x 5.4 cm anterior-posterior x 6.3 cm transverse. Normal endometrial thickness, 1 cm. Junctional zone is normal in signal and thickness. Small cyst in the left uterine fundus along the junctional zone. No focal uterine mass seen. CERVIX: Numerous nabothian cysts are present. VAGINA: Normal; no mass seen. RIGHT OVARY: The right ovary measures 4.1 x 2.5 x 2.8 cm. There are multiple follicles present. Inferior and posterior to the right ovary there is a paraovarian cyst measuring 4.2 x 2.7 x 2.6 cm. No abnormal enhancement. No soft tissue nodular component. No adnexal mass. LEFT OVARY: The left ovary is absent. No adnexal mass. KIDNEYS: Two normally positioned kidneys are seen. No hydronephrosis. Parapelvic cysts are noted. No specific follow-up recommended. BLADDER: Urinary bladder normal. PELVIC FREE FLUID: No free fluid or ascites. LYMPH NODES: No pathologically enlarged lymph nodes. OSSEOUS STRUCTURES: No acute or suspicious osseous abnormalities. MR/MR pelvis wo/w con IMPRESSION: 1. Right paraovarian cyst measuring up to 4.2 cm. No abnormal enhancement or soft tissue nodular component. This is simple appearing. No follow-up imaging recommended. 2. Multiple nabothian cysts are present. Dictated By: Miah Mixon MD Signed By: <Electronically signed by Miah Mixon MD in [place]> 07/03/22 0945 DD/ 0900 TD/TT: Tra Patient: Nae Joseph MR#: [id number] : 1980 Acct:[id number] Age/Sex: 41 / F ADM Date: 05/27/22 Loc: . Attending Dr: Cayetano Casiano MD Ordering Physician: Dawna Casiano CNM Date of Service: 05/27/22 Procedure(s): US pelvic and transvaginal Accession Number(s): [id number] cc: Dawna Casiano CNM~ EXAMINATION: US PELVIS CLINICAL INFORMATION: History of other diseases of the female genital tract; the last menstrual period was on 05/10/2022. The left ovary is surgically absent. COMPARISON: Pelvic ultrasound dated 03/11/2022. TECHNIQUE: Ultrasound of the pelvis is performed using both transabdominal and transvaginal transducers along with Doppler. Transvaginal imaging is performed due to inadequate visualization transabdominally. FINDINGS: Uterus: The uterus is retroverted and retroflexed. The uterus measures 11.3 x 4.1 x 5.1 cm. Complex cysts are noted within the cervix, the largest measuring 1.3 x 0.8 x 0.8 cm. These likely represent nabothian cysts. The double wall endometrial thickness is 1.2 mm. The uterus is smooth in contour and has normal myometrial echogenicity. No visible fibroid. Adnexa: There is normal color flow to the adnexa. The left ovary is surgically absent. There is no right ovarian torsion. There is no pelvic ascites or fluid collection. Right ovary measures 3.4 x 2.9 x 1.9 cm, volume 9.8 mL. The right ovary contains a 1.3 x 1.2 x 1.2 cm corpus luteum cyst and a 1.3 cm maximal diameter dominant follicle. Adjacent to the right ovary, a 1.1 x 0.6 x 0.9 cm shadowing calcification is seen. A 4.6 x 2.6 x 3.3 cm adnexal cyst is seen, possibly a paraovarian cyst. US/US pelvic and transvaginal IMPRESSION: 1. There are complex cysts seen within the cervix, likely nabothian cysts. 2. A 1.3 cm right adnexal coarse calcification may represent a dermoid tumor. This could be further evaluated with pelvic MRI, if clinically indicated. Gynecology evaluation and management are recommended. 3. There is a continued stable 4.6 cm in maximal diameter right adnexal cyst, possibly a paraovarian cyst. 4. A small right ovarian corpus luteum cyst and dominant follicle are of incidental note. 5. The left ovary is surgically absent. Dictated By: Aramis Green MD Signed By: <Electronically signed by Aramis Green MD in OV> 05/28/222130 DD/ 9066 TD/TT: Batter Out: Assessment & Plan Assessment & Plan (1) Osteoarthritis of right hip: Code(s): M16.11 - Unilateral primary osteoarthritis, right hip (2) Acquired leg length discrepancy: Code(s): M21.70 - Unequal limb length (acquired), unspecified site (3) Hx of unilateral oophorectomy: Comment: left Code(s): Z90.721 - Acquired absence of ovaries, unilateral (4) Potential exposure to STD: Code(s): Z20.2 - Contact with and (suspected) exposure to infections with a predominantly sexual mode of transmission (5) Atypical squamous cells of undetermined significance (ASCUS) on Papanicolaou smear of cervix: Code(s): R87.610 - Atypical squamous cells of undetermined significance on cytologic smear of cervix (ASC-US) (6) Severe dysmenorrhea: Code(s): N94.6 - Dysmenorrhea, unspecified Plan Discussed her painful periods and ways to explore from here she already had a man MRI and a pelvic ultrasound in the spring. And there really isn't an indication currently to repeat any of these tests as the pain is about the same it is not worse. He in fact her periods are not as heavy as they were a few months ago.. Discussed options control pills would not be indicated in her case discussed the possible use of a Mirena and I gave her the information in Portuguese for now she would like to try naproxen which I will prescribe every 12 hours for her to start at the start of her painful periods and she will see how that works out. She is going to be seeing a new primary care provider in the end of March and will discuss her migraine headaches with them and also she is getting her every 6 month follow-up for her mammograms. Pap showed ASCUS in 2019 1-in 2021 Pap was repeated today reviewed the possible findings and what to expect and to not worry if BV shows up though her discharge appeared completely normal. If The patient gets more pain or something changes she will let us know but she will give it a try for the naproxen otherwise will see her in a year. Orders: Orders CT NG by PCR Today Z20.2 - Contact with and (suspected) exposure to infections with a predominantly sexual mode of transmission Pap Smear Today R87.610 - Atypical squamous cells of undetermined significance on cytologic smear of cervix (ASC-US) Bacterial Vaginosis Panel Today Z20.2 - Contact with and (suspected) exposure to infections with a predominantly sexual mode of transmission Medications: New naproxen (EC-Naproxen) Take every 12 hours at the very start of menstrual pain for 1st 2-3 days of menses 500 mg PO BID PRN 90 tabs 0RF pain Coding Level of Care Code Est Pt Prev Care 40-64y(11560) Diagnoses Osteoarthritis of right hip M16.11 Acquired leg length discrepancy M21.70 Hx of unilateral oophorectomy Z90.721 Potential exposure to STD Z20.2 Atypical squamous cells of undetermined significance (ASCUS) on Papanicolaou smear of cervix R87.610 Severe dysmenorrhea N94.6
== END 2023-03-27 12:02 | disposition home or self-care (01) ==
LOC: HO.HWS 10:56
PROVIDERS: Visit Provider Advanced Practice Midwife
DX: Z01.419 Encounter for gynecological examination (general) (routine) without abnormal findings (principal); Z20.2 Contact with and (suspected) exposure to infections with a predominantly sexual mode of transmission; Z90.721 Acquired absence of ovaries, unilateral; M16.11 Unilateral primary osteoarthritis, right hip; M21.70 Unequal limb length (acquired), unspecified site
CPT/HCPCS: 99396

== ENCOUNTER 2023-04-17 09:35 | Outpatient (REF) | payer MEDICARE, SELFPAY ==
[2023-04-17 11:42] LABS: MANUAL DIFF FLAG NO
[2023-04-17 11:51] LABS: Basophils Percent Auto 0.4 % (0-2); Eosinophils Absolute Auto 0.7 X10*3/uL (0.0-0.4); Eosinophils Percent Auto 10.7 % (0-4); Hematocrit 42.9 % (37.0-47.0); Hemoglobin 13.7 g/dl (12.0-16.0); Imm Gran Abs Auto 0.01 X10*3/uL (0.00-0.03); Imm Gran Pct Auto 0.1 % (0.0-0.4); Lymphocytes Absolute Auto 2.8 X10*3/uL (1.2-4.9); Lymphocytes Percent Auto 40.9 % (20-40); Mean Corpuscular HGB Conc 31.9 g/dl (31.0-35.0); Mean Corpuscular Hemoglobin 28.8 pg (27.0-33.0); Mean Corpuscular Volume 90.1 fL (80.0-98.0); Mean Platelet Volume 12.8 fL (9.4-12.3); Monocytes Absolute Auto 0.7 X10*3/uL (0.1-1.2); Monocytes Percent Auto 10.1 % (2-11); Neutrophils Absolute Auto 2.6 x10*3/uL (2.0-8.3); Neutrophils Percent Auto 37.8 % (45-73); Platelet Count 206 X10*3/uL (160-400); Red Blood Count 4.76 X10*6/uL (4.20-5.50); Red Cell Distribution Width 12.6 % (11.0-16.0); White Blood Count 6.8 X10*3/uL (4.8-10.8)
[2023-04-17 12:05] LABS: Estimated Average Glucose 108 mg/dL; Hemoglobin A1C 125.3436 umol/L; Hemoglobin A1c % 5.4 % (<6.0)
[2023-04-17 12:11] LABS: HBS Num1 289.57 mIU/mL (0-7.99); HBc Num1 0.13 S/CO (0.00-0.79); HBsAGNum1 0.53 S/CO (0.00-0.99); Hepatitis B Core Antibody Nonreactive (Nonreactive); Hepatitis B Surface Antigen Negative (Negative); ~Hepatitis B Surface Antibody REACTIVE (Nonreactive)
[2023-04-17 12:19] LABS: Alanine Aminotransferase 32 U/L (0-31); Albumin Level 3.7 g/dL (3.5-5.0); Alkaline Phosphatase 63 U/L (39-117); Anion Gap 11 (12-20); Aspartate Amino Transferase 52 U/L (5-31); Bilirubin Total 0.5 mg/dL (0.0-1.0); Blood Urea Nitrogen 9 mg/dL (9-16); Calcium 9.1 mg/dL (8.4-10.2); Carbon Dioxide 26 mmol/L (22-29); Chloride 107 mmol/L (96-108); Cholesterol 164 mg/dL (<200); Estimated Glomerular Filt Rate > 60; Glucose Random 95 mg/dL (60-115); HDL Cholesterol 46 mg/dL (>40); LDL Cholesterol Calculated 96 mg/dL (<100); Potassium 4.1 mmol/L (3.3-5.1); Sodium 140 mmol/L (135-145); Total Protein 7.3 g/dL (6.5-8.0); Triglycerides 110 mg/dL (<150)
[2023-04-17 12:20] LABS: TSH reflex Free T4 1.85 uIU/mL (0.32-4.0)
== END 2023-04-17 09:36 | disposition home or self-care (01) ==
LOC: HO.HHCL 09:35
PROVIDERS: Visit Provider Registered Nurse
DX: Z00.00 Encounter for general adult medical examination without abnormal findings (principal)
CPT/HCPCS: 36415; 80053; 80061; 83036; 84443; 85025; 86704; 86706; 87340

== ENCOUNTER 2023-05-07 10:11 | Outpatient (REF) | payer MEDICARE, SELFPAY | END 2023-05-07 10:12 | disposition home or self-care (01) | LOC: HO.LNP 10:11 | PROVIDERS: Visit Provider Obstetrics & Gynecology | DX: R87.610 Atypical squamous cells of undetermined significance on cytologic smear of cervix (ASC-US) (principal); R87.810 Cervical high risk human papillomavirus (HPV) DNA test positive; Z32.02 Encounter for pregnancy test, result negative | CPT/HCPCS: 57454; 81025; 88305 ==

== ENCOUNTER 2023-05-07 10:11 | Outpatient (AMB) | payer MEDICARE, SELFPAY ==
--- NOTE | 2023-05-07 10:34 | A.OFFVIS_ITS ---
Intake Vital Signs 05/07/23 10:40 Height 5 ft Weight 167 lb 8.821 oz BMI 32.7 BP 110/74 Intake Visit Reasons: Colposcopy Jewelry Making Instructor Required: Yes Jewelry Making Instructor Language: Sql Ssrs Ssis Developer Name: Valentine SINGH Information Interpreted: non-clinical & clinical Sales Service Supervisor: Sales Service Supervisor Present (Valentine SINGH) Accompanied by: Self / Same As Patient Allergies No Known Allergies Allergy (Verified 05/07/23 10:41) Is last menstrual period known: Yes Last menstrual period: 04/23/23 HPI HPI Comments History of Present Illness Details Presenting for colposcopy [facility] Medical History Heavy menses History of abnormal cervical Pap smear ASCUS of cervix with negative high risk HPV Pelvic pain Club foot of both lower extremities Depression with anxiety Surgical History Hx of unilateral oophorectomy History of tubal ligation Family History Brother Colon cancer Mother Ureter cancer Social History Alcohol intake: current Alcohol intake frequency: a few times a week Current occupational status: disabled Current occupation: Left Handed Sexual orientation: Straight/Heterosexual Gender identity: Female Female Reproductive History Menstrual Age of Menarche: 9 Date of last menstrual period: 04/23/23 Physical Exam Vital Signs: Last Vital Signs BP 110/74 05/07/23 10:40 BMI result Body Mass Index 32.7 Office Procedures Colposcopy Before the procedure was started discussed with the patient the procedure, alternatives & all the risks associated with the procedure (bleeding, infection, injury to vagina, bladder, vessels, possible need for transfusion with all its risks) then patient signed the consent Pap smear = ascus/HPV positive Urine test done in the office was negative Speculum inserted, acetic acid used Colposcopy done Transformation zone seen, acetowhite lesions identified at 6+9+11+12+3 o?clock, cervical biopsies taken from 6+9+11+12+3 o?clock, ECC done afterwards. Vaginoscopy of the upper vagina showed no evidence of any aceto-white lesions Monsel solution used for hemostasis. The patient tolerated well . At the end the patient was instructed to call if temp>100.4, abdominal pain, n/v, bleeding; The patient was given the following instructions: nothing per vagina, no intercourse or bath tub use. All questions answered the patient verbalized understanding. Instructed the patient to make an appointment in 2 weeks for follow-up This note was generated with a voice recognition program. Some errors may have been overlooked during the review of this note. Sometimes these errors may affect the content or meaning of a given sentence. [id number]-[id number] of cervix including upper vagina with biopsy and ECC Procedure code (CPT) selection complete Results AMB Test Urine AMB Test Urine Negative Last Edit by Valentine Vicente CMA on 10:43 Results Reviewed Results Reviewed: Laboratory Last Values Tst Clinic Negative 05/07/23 10:42 Assessment & Plan Assessment & Plan (1) ASCUS with positive high risk HPV cervical: Code(s): R87.610 - Atypical squamous cells of undetermined significance on cytologic smear of cervix (ASC-US); R87.810 - Cervical high risk human papillomavirus (HPV) DNA test positive Plan: Colposcopy done, see procedure note Orders: Orders AMB Colposcopy Today R87.610 - Atypical squamous cells of undetermined significance on cytologic smear of cervix (ASC-US), R87.810 - Cervical high risk human papillomavirus (HPV) DNA test positive AMB HCG Urine Test Today Z32.02 - Encounter for test, result negative Coding Level of Care Code Procedure Only Diagnoses ASCUS with positive high risk HPV cervical R87.610; R87.810 CPT Codes Colposcopy - CPT: 32475-Jijbgqocx of cervix including upper vagina with biopsy and ECC ([id number])
[2023-05-07 10:40] VITALS: BP 110/74; BMI 32.7
== END 2023-05-07 13:33 | disposition home or self-care (01) ==
LOC: HO.HWS 10:11
PROVIDERS: Visit Provider Obstetrics & Gynecology
DX: R87.610 Atypical squamous cells of undetermined significance on cytologic smear of cervix (ASC-US) (principal); R87.810 Cervical high risk human papillomavirus (HPV) DNA test positive; Z32.02 Encounter for pregnancy test, result negative
CPT/HCPCS: 57454

== ENCOUNTER 2023-06-17 12:25 | Outpatient (AMB) | payer MEDICARE, SELFPAY ==
--- NOTE | 2023-06-17 12:39 | A.OFFVIS_ITS ---
Intake Vital Signs 06/17/23 12:41 Height 5 ft Weight 167 lb 8.821 oz BMI 32.7 BP 118/68 Intake Visit Reasons: colpo results Dairy Inspector Required: Yes Dairy Inspector Language: Supervisor Finishing Department Name: Valentine SINGH Information Interpreted: non-clinical & clinical Accompanied by: Self / Same As Patient Allergies No Known Allergies Allergy (Verified 06/17/23 12:42) Is last menstrual period known: Yes Last menstrual period: 05/24/23 HPI HPI Comments History of Present Illness Details Presenting post colpo for follow-up. The patient is doing well with no complaints. The pathology showed the following: A. Endocervix, curettage: Endocervical glandular mucosa with squamous metaplasia; negative for dysplasia. B. Cervix, 3:00, biopsy: Squamous and endocervical glandular mucosa with inflammation and metaplasia; negative for dysplasia. C. Cervix, 6:00, biopsy: Squamous and endocervical glandular mucosa with inflammation, metaplasia, and cysts; negative for dysplasia. D. Cervix, 9:00, biopsy: Squamous and endocervical glandular mucosa with inflammation, metaplasia, and cysts; negative for dysplasia. E. Cervix, 11:00, biopsy: Squamous and endocervical glandular mucosa with inflammation, metaplasia, and cysts; negative for dysplasia. F. Cervix, 12:00, biopsy: Squamous and endocervical glandular mucosa with inflammation and metaplasia; negative for dysplasia [facility] Medical History Heavy menses History of abnormal cervical Pap smear ASCUS of cervix with negative high risk HPV Pelvic pain Club foot of both lower extremities Depression with anxiety Surgical History Hx of unilateral oophorectomy History of tubal ligation Family History Brother Colon cancer Mother Ureter cancer Social History Alcohol intake: current Alcohol intake frequency: a few times a week Current occupational status: disabled Current occupation: Left Handed Sexual orientation: Straight/Heterosexual Gender identity: Female Female Reproductive History Menstrual Age of Menarche: 9 Date of last menstrual period: 05/24/23 Review of Systems Const All systems reviewed & are unremarkable except as noted in HPI and below Reports as per HPI and Reports no additional complaints GI Reports no additional complaints Reports no additional complaints Physical Exam Vital Signs: Last Vital Signs BP 118/68 06/17/23 12:41 BMI result Body Mass Index 32.7 Assessment & Plan Assessment & Plan (1) ASCUS with positive high risk HPV cervical: Code(s): R87.610 - Atypical squamous cells of undetermined significance on cytologic smear of cervix (ASC-US); R87.810 - Cervical high risk human papillomavirus (HPV) DNA test positive Plan: Discussed with the patient the pathology results of the colposcopy biopsies & endocervical curettage ( negative). Discussed with the patient the sensitivity specificity, positive and negative predictive value in detecting cervical cancer in addition discussed the regression, persistence and progression rates. Recommended co-testing in 12 months, if cytology and or HPV are abnormal will proceed was colposcopy biopsy and endocervical curettage. Instructions given to the patient to schedule a co test appointment in 1 year. All questions answered the patient verbalized understanding. Coding Level of Care Code Est Pt Level 3 (29030) Diagnoses ASCUS with positive high risk HPV cervical R87.610; R87.810
[2023-06-17 12:41] VITALS: BP 118/68; BMI 32.7
== END 2023-06-17 13:01 | disposition home or self-care (01) ==
LOC: HO.HWS 12:25
PROVIDERS: Visit Provider Obstetrics & Gynecology
DX: R87.610 Atypical squamous cells of undetermined significance on cytologic smear of cervix (ASC-US) (principal); R87.810 Cervical high risk human papillomavirus (HPV) DNA test positive
CPT/HCPCS: 99213

== ENCOUNTER → 2023-06-17 12:25 | Outpatient (BNVA) | payer MEDICARE, SELFPAY | PROVIDERS: Visit Provider Obstetrics & Gynecology | DX: R87.610 Atypical squamous cells of undetermined significance on cytologic smear of cervix (ASC-US) (principal); R87.810 Cervical high risk human papillomavirus (HPV) DNA test positive | CPT/HCPCS: 99212 ==

== ENCOUNTER 2023-07-31 12:51 | Outpatient (REF) | payer MEDICARE, SELFPAY ==
--- NOTE | ~2023-07-31 | MM_ITS ---
EXAMINATION: MM DIAGNOSTIC DIGITAL BREAST TOMOSYNTHESIS, RIGHT CLINICAL INFORMATION: 6 month follow-up for probably benign right breast calcifications mid central right breast. If stable this will establish two-year stability and benignity. COMPARISON: Mammography: 02/02/2023, 06/26/2022. 11/22/2021, 11/19/2021 (BI-RADS 0), 11/12/2020, 11/09/2019. TECHNIQUE: Digital breast tomosynthesis is performed in the following views: Full-field 3-D right CC, right MLO, and right mediolateral views, as well as 2-D spot magnification right ML and CC views. Computer-aided diagnosis was used for this study. FINDINGS: The breasts are heterogeneously dense, which may obscure small masses (ACR BI-RADS breast composition Category c). A tiny group of punctate, round, non-pleomorphic calcifications is again noted in the central slightly upper slightly lateral right breast, middle one third. These are completely unchanged without aggressive morphology. These have remained stable since 11/22/2021, establishing a two-year stability and benignity. No further follow-up recommended. There are no additional suspicious findings in the right breast. There are no skin or axillary abnormalities. Stable heterogeneously dense parenchymal pattern. MM/MM tomosynthesis diagnostic RT IMPRESSION: -No mammographic evidence of malignancy right breast. -Central right breast calcifications are unchanged, stable over 2 years, and benign. No further follow-up recommended. -Recommend the patient return to routine annual bilateral screening. ASSESSMENT: BI-RADS BI-RADS 2 - Benign Findings RECOMMENDATION: 1 year F/U Results were provided to the patient at time of visit by the technologist. This patient's information was entered into a reminder system with a target due date for their next mammogram.
== END 2023-07-31 12:52 | disposition home or self-care (01) ==
LOC: HO.MAMMO 12:51
PROVIDERS: PCP Internal Medicine; Visit Provider Advanced Practice Midwife
DX: R92.1 Mammographic calcification found on diagnostic imaging of breast (principal)
CPT/HCPCS: 77061; 77065

== ENCOUNTER → 2023-07-31 13:30 | Outpatient (BNV) | payer MEDICARE, SELFPAY | PROVIDERS: PCP Internal Medicine; Visit Provider Radiology Diagnostic Radiology | DX: R92.1 Mammographic calcification found on diagnostic imaging of breast (principal) | CPT/HCPCS: 77065; G0279 ==

== ENCOUNTER 2023-09-30 15:00 | Outpatient (REF) | payer MEDICARE, SELFPAY ==
[2023-09-30 16:39] LABS: Alanine Aminotransferase 15 U/L (0-31); Albumin Level 3.8 g/dL (3.5-5.0); Alkaline Phosphatase 69 U/L (39-117); Aspartate Amino Transferase 21 U/L (5-31); Bilirubin Direct 0.2 mg/dL (0.0-0.5); Bilirubin Total 0.4 mg/dL (0.0-1.0); Cholesterol 210 mg/dL (<200); HDL Cholesterol 61 mg/dL (>40); LDL Cholesterol Calculated 129 mg/dL (<100); Total Protein 7.3 g/dL (6.5-8.0); Triglycerides 103 mg/dL (<150)
== END 2023-09-30 15:01 | disposition home or self-care (01) ==
LOC: HO.HHCL 15:00
PROVIDERS: Visit Provider Internal Medicine
DX: R79.89 Other specified abnormal findings of blood chemistry (principal)
CPT/HCPCS: 36415; 80061; 80076

== ENCOUNTER 2023-10-13 14:31 | Outpatient (AMB) | payer MEDICARE, SELFPAY ==
[2023-10-13 14:59] VITALS: BP 120/76; BMI 33.2
--- NOTE | 2023-10-13 14:59 | A.OFFVIS_ITS ---
Vital Signs 10/13/23 14:59 Height 5 ft Weight 170 lb BMI 33.2 BP 120/76 Intake Visit Reasons: genital wart/referral Benefits Analyst Required: Yes Benefits Analyst Language: Operating Systems Programmer Services: Benefits Analyst Present Benefits Analyst Name: Valentine SINGH Information Interpreted: non-clinical & clinical Fire Watchman: Fire Watchman Present (Valentine SINGH) Accompanied by: Self / Same As Patient Allergies No Known Allergies Allergy (Verified 10/13/23 15:04) Is last menstrual period known: Yes Last menstrual period: 09/28/23 HPI Comments Details: Presenting complaining of new onset small vulvar and perirectal lesion since last December that has increased in number and size PFSH Medical History Heavy menses History of abnormal cervical Pap smear ASCUS of cervix with negative high risk HPV Pelvic pain Club foot of both lower extremities Depression with anxiety Surgical History Hx of unilateral oophorectomy History of tubal ligation Family History Brother Colon cancer Mother Ureter cancer Social History Alcohol intake: current Alcohol intake frequency: a few times a week Current occupational status: disabled Current occupation: Left Handed Sexual orientation: Straight/Heterosexual Gender identity: Female Female Reproductive History Menstrual Age of Menarche: 9 Date of last menstrual period: 09/28/23 control method: permanent sterilization Review of Systems Const All systems reviewed & are unremarkable except as noted in HPI and below Physical Exam Vital Signs: Last Vital Signs BP 120/76 10/13/23 14:59 BMI result Body Mass Index 33.2 General: Yes no CVA tenderness External Female Exam: No normal external appearance (2 left perirectal lesion and left labia majora x2 0.3 cm lesion) and normal appearance of the urethra Speculum Exam - Vagina: normal appearance of the vagina, normal palpation, no lesions and no masses Speculum Exam - Cervix: normal appearance of the cervix, normal palpation, no lesions, no masses and nontender Bimanual exam- vagina & uterus: normal bimanual exam, normal palpation, uterine size normal, normal palpation, uterine shape normal, No Cervical tenderness present and non-tender Bimanual Exam- Adnexa, other: normal adnexae Back/Spine/Pelvis Back: no CVA tenderness Assessment & Plan Assessment & Plan (1) Lesion of female perineum: Code(s): N90.9 - Noninflammatory disorder of vulva and perineum, unspecified Category: Medical Plan: Discussed with the patient the finding on pelvic exam showing multiple perineal lesions, differential diagnosis includes genital worse/JOSE 1 or JOSE 2 or 3 or other, recommended excision for pathological diagnosis/treatment. All questions answered, the patient verbalized understanding and agreed with the plan. Instructions given the patient to schedule an appointment for perineal lesions excision. All questions answered, the patient verbalized understanding Coding Level of Care Code Est Pt Level 3 (57810) Diagnoses Lesion of female perineum N90.9
== END 2023-10-13 15:43 | disposition home or self-care (01) ==
LOC: HO.HWS 14:31
PROVIDERS: PCP Internal Medicine; Visit Provider Obstetrics & Gynecology
DX: N90.9 Noninflammatory disorder of vulva and perineum, unspecified (principal)
CPT/HCPCS: 99213

== ENCOUNTER → 2023-10-13 14:31 | Outpatient (BNVA) | payer MEDICARE, SELFPAY | PROVIDERS: PCP Internal Medicine; Visit Provider Obstetrics & Gynecology | DX: N90.9 Noninflammatory disorder of vulva and perineum, unspecified (principal) | CPT/HCPCS: 99212 ==

== ENCOUNTER 2023-10-28 10:01 | Outpatient (AMB) | payer MEDICARE, SELFPAY ==
--- NOTE | 2023-10-28 10:16 | A.OFFVIS_ITS ---
Vital Signs 10/28/23 10:26 Height 5 ft Weight 169 lb 12.095 oz BMI 33.1 BP 110/66 Intake Visit Reasons: warts removal Tearoom Host/Hostess Required: Yes Tearoom Host/Hostess Language: Snorkelling Instructor Services: Tearoom Host/Hostess Present (in person) Tearoom Host/Hostess Name: Valentine SINGH Information Interpreted: non-clinical & clinical Wood Piler: Wood Piler Present (Valentine SINGH) Accompanied by: Self / Same As Patient Allergies No Known Allergies Allergy (Verified 10/28/23 10:38) HPI Comments Details: Presenting for excisional biopsies of perineal lesions [facility] Medical History Heavy menses History of abnormal cervical Pap smear ASCUS of cervix with negative high risk HPV Pelvic pain Club foot of both lower extremities Depression with anxiety Surgical History Hx of unilateral oophorectomy History of tubal ligation Family History Brother Colon cancer Mother Ureter cancer Social History Alcohol intake: current Alcohol intake frequency: a few times a week Current occupational status: disabled Current occupation: Left Handed Sexual orientation: Straight/Heterosexual Gender identity: Female Female Reproductive History Menstrual Age of Menarche: 9 Review of Systems Const All systems reviewed & are unremarkable except as noted in HPI and below Physical Exam Vital Signs: BMI result Body Mass Index 33.1 General: Yes no CVA tenderness External Female Exam: normal appearance of the urethra and other (1 x0.3 cm Rlabia majora, 2x 0.3 cmL labia majora, 2 L perirectal area) Speculum Exam - Vagina: normal appearance of the vagina, normal palpation, no lesions and no masses Speculum Exam - Cervix: normal appearance of the cervix, normal palpation, no lesions, no masses and nontender Bimanual exam- vagina & uterus: normal bimanual exam, normal palpation, uterine size normal, normal palpation, uterine shape normal, No Cervical tenderness present and non-tender Bimanual Exam- Adnexa, other: normal adnexae Back/Spine/Pelvis Back: no CVA tenderness Office Procedures LOADING UNIT OPERATOR SEATING Biopsy Before the procedure was started d/w patient the procedure, alternatives ( do nothing, medical rx), & all the risks associated with the procedure ( bleeding , infection, vulvar scarring, painful intercourse, injury to vessels, possible need for transfusion with all its risks) then patient signed the consent. Preop dx: 1 x0.3 cm R labia majora, 2x 0.3 cm L labia majora, 2x 0.3 cm L perirectal area Op: 1 x0.3 cm R labia majora, 2x 0.3 cm L labia majora, 2x 0.3 cm L perirectal area excision Post op: Same Anesthesia: Lidocaine 1% 8 cc used Procedure: Using betadine the area was scrubbed and draped in the usual manner. 3 cc of lidocaine was used for anesthesia at 1 x0.3 cm R labia majora, 2x 0.3 cm L labia majora, 2x 0.3 cm L perirectal area ; using scissors and pickup the 1 x0.3 cm R labia majora, 2x 0.3 cm L labia majora, 2x 0.3 cm L perirectal area were excised. Pressure was used for hemostasis. The patient tolerated the procedure well. Discharge Instructions: The patient was instructed to schedule an appointment in 2 weeks for follow-up and to call if temp>100.4, area of the biopsy redness or pain, nausea/vomiting. This note was generated with a voice recognition program. Some errors may have been overlooked during the review of this note. Sometimes these errors may affect the content or meaning of a given sentence. 97334-Obbkwh of Vulva/Perineum 93030-Yzlnud of Vulva/Perineum, additional site Procedure code (CPT) selection complete Assessment & Plan Assessment & Plan (1) Lesion of female perineum: Comment: 1 x0.3 cm R labia majora, 2x 0.3 cm L labia majora, 2xc0.3 cm L perirectal area Code(s): N90.9 - Noninflammatory disorder of vulva and perineum, unspecified Category: Medical Plan: Vulvar excision biopsies done, see procedure note Orders: Orders AMB LOADING UNIT OPERATOR SEATING Biopsy Today N90.9 - Noninflammatory disorder of vulva and perineum, unspecified Coding Level of Care Code Procedure Only Diagnoses Lesion of female perineum N90.9 CPT Codes LOADING UNIT OPERATOR SEATING Biopsy - CPT: 68421-Gyxwem of Vulva/Perineum ([id number]) LOADING UNIT OPERATOR SEATING Biopsy - CPT: 15913-Tstgcl of Vulva/Perineum, additional site ([id number])
[2023-10-28 10:26] VITALS: BP 110/66; BMI 33.1
== END 2023-10-28 11:09 | disposition home or self-care (01) ==
LOC: HO.HWS 10:01
PROVIDERS: PCP Internal Medicine; Visit Provider Obstetrics & Gynecology
DX: N90.9 Noninflammatory disorder of vulva and perineum, unspecified (principal)
CPT/HCPCS: 56605; 56606

== ENCOUNTER 2023-10-28 10:01 | Outpatient (REF) | payer MEDICARE, SELFPAY | END 2023-10-28 10:02 | disposition home or self-care (01) | LOC: HO.LNP 10:01 | PROVIDERS: PCP Internal Medicine; Visit Provider Obstetrics & Gynecology | DX: N90.9 Noninflammatory disorder of vulva and perineum, unspecified (principal) | CPT/HCPCS: 56605; 56606; 88305 ==

== ENCOUNTER 2024-01-19 14:35 | Outpatient (AMB) | payer MEDICARE, SELFPAY ==
[2024-01-19 14:40] VITALS: BMI 33.1
--- NOTE | 2024-01-19 14:40 | A.OFFVIS_ITS ---
Vital Signs 01/19/24 14:40 Height 5 ft Weight 169 lb 12.095 oz BMI 33.1 Intake Visit Reasons: biopsy results/DO NOT RS Leather Goods Sales Representative Required: Yes Leather Goods Sales Representative Language: Air Intercept Controller Services: Leather Goods Sales Representative Present (in person) Leather Goods Sales Representative Name: Valentine SINGH Information Interpreted: non-clinical & clinical Accompanied by: Self / Same As Patient Allergies No Known Allergies Allergy (Verified 01/19/24 14:41) Is last menstrual period known: Yes Last menstrual period: 12/27/23 HPI Comments Details: Presenting for follow-up after vulvar lesions biopsy. Doing well with no complaints. The pathology showed the following: A. Vulva, right labia majora, biopsy: Condyloma acuminatum. B. Vulva, left labia majora, biopsy: Condyloma acuminatum. C. Soft tissue, perirectal lesion, biopsy: Condyloma acuminatum. [facility] Medical History Heavy menses History of abnormal cervical Pap smear ASCUS of cervix with negative high risk HPV Pelvic pain Club foot of both lower extremities Depression with anxiety Surgical History Hx of unilateral oophorectomy History of tubal ligation Family History Brother Colon cancer Mother Ureter cancer Social History Alcohol intake: current Alcohol intake frequency: a few times a week Current occupational status: disabled Current occupation: Left Handed Sexual orientation: Straight/Heterosexual Gender identity: Female Female Reproductive History Menstrual Age of Menarche: 9 Date of last menstrual period: 12/27/23 control method: permanent sterilization Review of Systems Const All systems reviewed & are unremarkable except as noted in HPI and below Reports as per HPI and Reports no additional complaints GI Reports no additional complaints Reports no additional complaints Physical Exam Vital Signs: BMI result Body Mass Index 33.1 Assessment & Plan Assessment & Plan (1) Condyloma acuminata: Code(s): A63.0 - Anogenital (venereal) warts Category: Medical Plan: Discussed with the patient the findings on pathology results, treatment options including cream application to the affected area, excision, cryotherapy or laser, will start with Aldara cream . Insructions given to the pt to call if not improved, any irrtations, apply x3/week at bed time and rinse very well in am Medications: New imiquimod 5% apply to the affected area for 8-10 hours, 3 times a week 8 hours each and rinse the area well afterwards, for no longer than 16 weeks 1 appl topical 3XW 24 ea 1RF 16 weeks Coding Level of Care Code Est Pt Level 3 (49161) Diagnoses Condyloma acuminata A63.0
== END 2024-01-19 14:49 | disposition home or self-care (01) ==
PROVIDERS: PCP Internal Medicine; Visit Provider Obstetrics & Gynecology
DX: A63.0 Anogenital (venereal) warts (principal)
CPT/HCPCS: 99213

== ENCOUNTER → 2024-01-19 14:35 | Outpatient (BNVA) | payer MEDICARE, SELFPAY | PROVIDERS: PCP Internal Medicine; Visit Provider Obstetrics & Gynecology | DX: A63.0 Anogenital (venereal) warts (principal) | CPT/HCPCS: 99212 ==

== ENCOUNTER 2024-02-12 09:41 | Outpatient (AMB) | payer MEDICARE, SELFPAY ==
[2024-02-12 09:45] VITALS: BP 118/70; BMI 33.0
--- NOTE | 2024-02-12 09:45 | A.OFFVIS_ITS ---
Vital Signs 02/12/24 09:45 Height 5 ft Weight 169 lb BMI 33.0 BP 118/70 Intake Visit Reasons: pain after intercourse Information Interpreted: clinical only Geophysical Computer: Geophysical Computer Present Allergies No Known Allergies Allergy (Verified 02/12/24 09:46) Medication List - Last Reconciled 02/12/24 by Christina Jimenez CNM bupropion HCl XL 150 mg PO QAM imiquimod 5% 1 appl topical 3XW 16 weeks naproxen (EC-Naproxen) 500 mg PO BID PRN [shoe lift Please evaluate and treat for right leg length discrepancy] trazodone 100 mg PO DAILY valacyclovir 1,000 mg PO TID Is last menstrual period known: Yes Last menstrual period: 01/26/24 HPI HPI pain after intercourse: Details: Street office for visit that she called for yesterday because she was not able to be seen at her primary care provider. She said that she has blood when she urinates and also that she has pain with intercourse and that is how she had it brought to her attention.. Additionally I see in the chart that she has been seen recently with Dr. Bridges for condyloma acuminata and as recently as [id number] weeks ago she was prescribed Aldara cream with the regimen to apply it 3 times a week with careful instructions. Patient has urgency with urination and wants to void immediately on arrival. Patient informed that for urinary tract infection issues especially since she is at the [facility] building and her primary care provider is at the [facility] her immediate needs for evaluation of a urinary tract infection we will be much better met by going downstairs to same day care site on the 1st floor that she passed on the way in and getting evaluated there for possible urinary tract infection. Since she is here now I will evaluate her for any gynecological issue that could be contributing to her concern today and then I am recommending strongly that she go straight downstairs and be evaluated for UTI as this would allow her possible treatment if it is deemed that that is what the problem is today rather than dreading to Thursday or Thursday for evaluation of a clean-catch urine that would have to get sent through the lab. [facility] Medical History Heavy menses History of abnormal cervical Pap smear ASCUS of cervix with negative high risk HPV Pelvic pain Club foot of both lower extremities Depression with anxiety Surgical History Hx of unilateral oophorectomy History of tubal ligation Family History Brother Colon cancer Mother Ureter cancer Social History Alcohol intake: current Alcohol intake frequency: a few times a week Current occupational status: disabled Current occupation: Left Handed Sexual orientation: Straight/Heterosexual Gender identity: Female Female Reproductive History Menstrual Age of Menarche: 9 Duration of menses: 3-5 days Date of last menstrual period: 01/26/24 control method: permanent sterilization Total pregnancies: 3 Full term: 3 Physical Exam Vital Signs: Last Vital Signs BP 118/70 02/12/24 09:45 BMI result Body Mass Index 33.0 Other: External exam completely within normal limits there is some trace evidence of where the condyloma were removed but there was minimal scarring. There is a mole in her left going that she wishes could have been removed as well and there was 1 tiny bump that maybe starting condyloma on left buttock cheek. Vagina pink and moist no lesions seen no abnormal discharge cervix appears completely clear healthy normal uterus small mobile nontender adnexa nontender. No abnormal discharge good tone. Assessment & Plan Assessment & Plan (1) Condyloma acuminata: Code(s): A63.0 - Anogenital (venereal) warts Category: Medical (2) Lesion of female perineum: Comment: 1 x0.3 cm R labia majora, 2x 0.3 cm L labia majora, 2xc0.3 cm L perirectal area Code(s): N90.9 - Noninflammatory disorder of vulva and perineum, unspecified Category: Medical (3) ASCUS with positive high risk HPV cervical: Code(s): R87.610 - Atypical squamous cells of undetermined significance on cytologic smear of cervix (ASC-US); R87.810 - Cervical high risk human papillomavirus (HPV) DNA test positive Category: Medical (4) Urinary urgency: Comment: + blood in urine symptomatic of UTI for several days. To go straight downstairs to the [place] same day care office and be seen and evaluated for UTI. Code(s): R39.15 - Urgency of urination Category: Medical Plan Reviewed her treatment plan for the condyloma as per Dr. Bridges. Currently she is not feel when she is having any of the condyloma they they are all gone and that he remove them all as part of the biopsy process. She does have the cream and does remember how to use it and will do so if they recur. Testing for STIs done as she does have a new partner in the last month she has been complaining of pain with intercourse when he penetrates so discussed the role positioning but also the role of a new partner in disturbing her urethra as possibly being responsible for her UTI symptoms periods since we do not have the ability to immediately diagnosis a UTI here in this office she will be much better served by going to the [facility] same day care office on the 04 23 especially as she is [facility] primary care patient. and hopefully they would be able to see her and send her to the lab immediately and treat if appropriate today. Regardless I recommend she really push water to try to flush things out as well. Orders: Orders CT NG by PCR Today N89.8 - Other specified noninflammatory disorders of vagina Bacterial Vaginosis Panel Today N89.8 - Other specified noninflammatory disorders of vagina Coding Level of Care Code Est Pt Level 3 (56170) Diagnoses Condyloma acuminata A63.0 Lesion of female perineum N90.9 ASCUS with positive high risk HPV cervical R87.610; R87.810 Urinary urgency R39.15
== END 2024-02-12 11:23 | disposition home or self-care (01) ==
LOC: HO.HWSM 09:41
PROVIDERS: PCP Internal Medicine; Visit Provider Advanced Practice Midwife
DX: A63.0 Anogenital (venereal) warts (principal); N90.9 Noninflammatory disorder of vulva and perineum, unspecified; R87.610 Atypical squamous cells of undetermined significance on cytologic smear of cervix (ASC-US); R87.810 Cervical high risk human papillomavirus (HPV) DNA test positive; R39.15 Urgency of urination
CPT/HCPCS: 99213

== ENCOUNTER 2024-02-12 09:41 | Outpatient (REF) | payer MEDICARE, SELFPAY ==
[2024-02-12 18:17] LABS: Bacterial Vaginosis PCR NEGATIVE (Negative); Candida Group PCR NOT DETECTED (Not Detect); Candida glab krusei PCR NOT DETECTED (Not Detect); Trichomonas vaginalis PCR NOT DETECTED (Not Detect)
[2024-02-13 10:50] LABS: CT PCR NOT DETECTED (Not Detect.); NG PCR NOT DETECTED (Not Detect.)
== END 2024-02-12 09:42 | disposition home or self-care (01) ==
LOC: HO.LAB 09:41
PROVIDERS: PCP Internal Medicine; Visit Provider Advanced Practice Midwife
DX: N89.8 Other specified noninflammatory disorders of vagina (principal); A63.0 Anogenital (venereal) warts; N90.9 Noninflammatory disorder of vulva and perineum, unspecified; R87.610 Atypical squamous cells of undetermined significance on cytologic smear of cervix (ASC-US); R87.810 Cervical high risk human papillomavirus (HPV) DNA test positive; R39.15 Urgency of urination
CPT/HCPCS: 0352U; 87491; 87591; 99212

== ENCOUNTER 2024-06-08 14:04 | Outpatient (AMB) | payer MEDICARE, SELFPAY ==
[2024-06-08 14:05] VITALS: BMI 33.0
--- NOTE | 2024-06-08 14:05 | A.OFFVIS_ITS ---
Vital Signs 06/08/24 14:05 Height 5 ft Weight 169 lb BMI 33.0 Intake Visit Reasons: vulva recheck Asphalt Distributor Operator Required: Yes Asphalt Distributor Operator Language: Granite Countertop Installer Services: Asphalt Distributor Operator Present (in person) Asphalt Distributor Operator Name: Valentine SINGH Information Interpreted: non-clinical & clinical Middle School Humanities Teacher: Middle School Humanities Teacher Present (Valentine SINGH) Accompanied by: Self / Same As Patient Allergies No Known Allergies Allergy (Verified 06/08/24 14:07) Is last menstrual period known: Yes Last menstrual period: 05/17/24 HPI Comments Details: Presenting for follow-up after Aldara cream use for condyloma acuminata us, all lesions results completely. The patient is complaining of to left buttock 2 skin tag dark in color PFSH Medical History Heavy menses History of abnormal cervical Pap smear ASCUS of cervix with negative high risk HPV Pelvic pain Club foot of both lower extremities Depression with anxiety Surgical History Hx of unilateral oophorectomy History of tubal ligation Family History Brother Colon cancer Mother Ureter cancer Social History Alcohol intake: current Alcohol intake frequency: a few times a week Current occupational status: disabled Current occupation: Left Handed Sexual orientation: Straight/Heterosexual Gender identity: Female Female Reproductive History Menstrual Age of Menarche: 9 Date of last menstrual period: 05/17/24 Review of Systems Const All systems reviewed & are unremarkable except as noted in HPI and below Physical Exam Vital Signs: BMI result Body Mass Index 33.0 General: Yes no CVA tenderness External Female Exam: normal appearance of the urethra and other (2 x0.5 cm left buttock dark skin tags otherwise no evidence of condyloma ) Speculum Exam - Vagina: normal appearance of the vagina, normal palpation, no lesions and no masses Speculum Exam - Cervix: normal appearance of the cervix, normal palpation, no lesions, no masses and nontender Bimanual exam- vagina & uterus: normal bimanual exam, normal palpation, uterine size normal, normal palpation, uterine shape normal, No Cervical tenderness present and non-tender Bimanual Exam- Adnexa, other: normal adnexae Back/Spine/Pelvis Back: no CVA tenderness Office Procedures ABSORBER OPERATOR Biopsy Before the procedure was started d/w patient the procedure, alternatives ( do nothing, medical rx), & all the risks associated with the procedure ( bleeding , infection, vulvar scarring, painful intercourse, injury to vessels, possible need for transfusion with all its risks) then patient signed the consent. Preop dx: 2 Skin tags of Left buttock (upper and lower lesion) Op: 2 Skin tags of Left buttock (upper and lower lesion) excision Post op: Same Anesthesia: Lidocaine 1% 3cc used Procedure: Using betadine the area was scrubbed and draped in the usual manner. 5 cc of lidocaine was used for anesthesia at the 2 Skin tags of Left buttock (upper and lower lesion) area ; using scissors and pickup the 2 Skin tags of Left buttock (upper and lower lesion) were excised, Vicryl 4.0 was used to approximate the edges. Pressure was used for hemostasis. The patient tolerated the procedure well. Discharge Instructions: The patient was instructed to schedule an appointment in 2 weeks for follow-up and to call if temp>100.4, area of the biopsy redness or pain, nausea/vomiting. This note was generated with a voice recognition program. Some errors may have been overlooked during the review of this note. Sometimes these errors may affec t the content or meaning of a given sentence. 14105-Klstmn of Vulva/Perineum 43859-Ebuvfx of Vulva/Perineum, additional site Procedure code (CPT) selection complete Assessment & Plan Assessment & Plan (1) Skin tag: Comment: Left buttock Code(s): L91.8 - Other hypertrophic disorders of the skin Category: Medical Plan: Discussed with the patient the finding on pelvic exam no evidence of remaining condylomas. The finding of 2 Left skin tags 0.5 cm dark in color, recommended excision. See procedure note Orders: Orders AMB ABSORBER OPERATOR Biopsy Today L91.8 - Other hypertrophic disorders of the skin Coding Level of Care Code Procedure Only Diagnoses Skin tag L91.8 CPT Codes ABSORBER OPERATOR Biopsy - CPT: 18417-Kyzymf of Vulva/Perineum ([id number]) ABSORBER OPERATOR Biopsy - CPT: 31044-Vuoceb of Vulva/Perineum, additional site ([id number])
--- OUTSIDE RECORDS SUMMARY | 2024-06-08 14:18 | XMS_ITS | Encounter Summary ---
Author Organization [employer] Address [address] [place] [address] Care Team Providers Care Foot Miter Operator Name Role Phone Anna Jaquez MD Primary Care Provide r Reason for Visit * Reason Comments Med Refill Encounter Details Date Type Department Care Team (Late st Contact Info) Description 11/11/[address] [facility] [address], [place] [id number] Anna Jaquez MD [address] [place] [address] Mild intermittent asthma without complication Social History Tobacco Use Types Packs/Day Years Used Date Smoking Tobacco: Never Passive Smoke Exposure: Never Smokeless Tobacco: Never Alcohol Use Standard Drinks/Week Comments Never 0 (1 standard drink = 0.6 oz pur e alcohol) Alcohol Answer Date Recorded Frequency of Alcohol Consumption Not on file 09/30/2023 Average Number of Drinks Not on file 024 Frequency of Binge Drinking Not on file 09/18 Score 0 09/30/2023 Depression Answer Date Recorded Patient Health Questionnaire-9 Score 0 09/30/2023 Patient Health Questionnaire-9 Score 0 09/30/2023 Last PHQ-9: Questionnaire Data Not on file 0 09/30/2023 Housing Stability Answer Date Recorded What is your housing situation today? I have luca ashley 04/03/[address] you li ve. Do you have problems with any of the following? None of the above 04/03/2023 Food Insecurity Answer Date Recorded Within the past 12 months, y ou worried that your food would run out before you got money to buy more: Never True 04/03/2023 Within the past 12 months,th e food you bought just didn't last and you didn't have enough money to get more: Never True Transportation Answer Date Recorded In the past 12 months, has l ack of transportation kept you from medical appts, meetings, work or from getting things needed for daily living? No 04/03/2023 Utilities Answer Date Recorded In the past 12 months, has t he electric, gas, oil or water company threatened to shut off services in your home? No 04/03/2023 Depression Answer Date Recorded Patient Health Questionnaire-2 Score 0 09/30/2023 Comments No Sex and Gender Information Value Date Recorded Sex Assigned at Female 02/17/2022 10:14 AM EDT Legal Sex Female 10:14 AM EDT Gender Identity Female 10/20/2022 3:55 PM EDT Sexual Orientation Straight 10/20/2022 3: 55 PM EDT documented as of this encounter Plan of Treatment Not on file documented as of this encounter Visit Diagnoses Diagnosis Mild intermittent asthma without complication documented in this encounter Additional Health Concerns Assessment Noted Time PHQ-9 Depression Total Score: 0 09/30/19 24 2:21 PM EDT documented as of this encounter Care Teams Foot Miter Operator Relationship Specialty Start Date End Date Anna Jaquez MD [address] [place] [id number] PCP - General Family Medicine 01/08/18 documented as of this encounter
--- OUTSIDE RECORDS SUMMARY | 2024-06-08 14:18 | XMS_ITS | Clinical Summary ---
Author Organization [facility] Address [address] [place] [address] Care Team Providers Care Passenger Screener Name Role Phone Unavailable Primary Care Provider Unavailabl e Social History Tobacco Use Types Packs/Day Years Used Date Smoking Tobacco: Never Assessed Comments Unknown Sex and Gender Information Value Date Recorded Sex Assigned at Not on file Legal Sex Female 5:06 AM EST Gender Identity Not on file Sexual Orientation Not on file Plan of Treatment Health Maintenance Due Date Last Done Comments Breast Cancer Screening 1978 DTaP,Tdap,and Td Vaccines (1 - Tdap) 1997 Hepatitis B Vaccines (1 of 3 - 19+ 3-dose series) 1997 Cervical Cancer Screening: P ap Smear 12/24/1999 Colorectal Cancer Screening: Colonoscopy 03/23/2022 Depression Screening 03/23/2022 HIV Screening 03/23/2022 Hepatitis C Screening 03/23/2022 Social Influencers of Health Screening 03/23/2022 COVID-19 Vaccine (2023-2 5 season) 2023 Influenza Vaccine (#1) 2023 HIB Vaccines Aged Out No longer eligi ble based on patient's age to complete this topic HPV Vaccines Aged Out No longer eligi ble based on patient's age to complete this topic Hepatitis A Vaccines Aged Out No long er eligible based on patient's age to complete this topic IPV Vaccines Aged Out No longer eligi ble based on patient's age to complete this topic MMR Vaccines Aged Out No longer eligi ble based on patient's age to complete this topic Meningococcal ACWY Vaccine Aged Out N o longer eligible based on patient's age to complete this topic Meningococcal B Vacine Aged Out No lo nger eligible based on patient's age to complete this topic Pneumococcal Vaccine: Pediat rics (0 to 5 Years) and At-Risk Patients (6 to 64 Years) Aged Out No longer eligible b ased on patient's age to complete this topic RSV Immunization Patients Un masood 20 months Aged Out No longer eligible b ased on patient's age to complete this topic Varicella Vaccines Aged Out No longer eligible based on patient's age to complete this topic
--- OUTSIDE RECORDS SUMMARY | 2024-06-08 14:18 | XMS_ITS | Encounter Summary ---
Author Organization [email or web address] Address [address] [place] [address] 7 [place] [address] Care Team Providers Care Chief Information Security Officer Name Role Phone Anna Jaquez MD Primary Care Provide r Reason for Visit * Reason Comments Med Refill Encounter Details Date Type Department Care Team (Late st Contact Info) Description 07/22/2023 Refill [facility] MEDICINE [address] [place], [place] [phone] Anna Jaquez MD [address] [place], [place] [phone] Migraine without status migrainosus, not intractable, unspecified migraine type Social History Tobacco Use Types Packs/Day Years Used Date Smoking Tobacco: Never Passive Smoke Exposure: Never Smokeless Tobacco: Never Alcohol Use Standard Drinks/Week Comments Never 0 (1 standard drink = 0.6 oz pur e alcohol) Depression Answer Date Recorded Patient Health Questionnaire-9 Score 22 04/15/2023 Patient Health Questionnaire-9 Score 22 04/15/2023 Last PHQ-9: Questionnaire Data Not on file 1 06/16/2022 Housing Stability Answer Date Recorded What is [...] Answer Date Recorded Patient Health Questionnaire-2 Score 6 04/15/2023 Comments No Sex and Gender Information Value Date Recorded Sex Assigned at Female 02/17/2022 10:14 AM EDT Legal Sex Female 10:14 AM EDT Gender Identity Female 10/20/2022 3:55 PM EDT Sexual Orientation Straight 10/20/2022 3: 55 PM EDT documented as of this encounter Plan of Treatment Not on file documented as of this encounter Visit Diagnoses Diagnosis Migraine without status migrainosus, not intractable, unspecified migraine type documented in this encounter Additional Health Concerns Assessment Noted Time PHQ-9 Depression Total Score: 22 023 9:24 AM EST documented as of this encounter Care Teams Chief Information Security Officer Relationship Specialty Start Date End Date Anna Jaquez MD [address] [place] [address] PCP - General Family Medicine 01/08/18 documented as of this encounter
--- OUTSIDE RECORDS SUMMARY | 2024-06-08 14:18 | XMS_ITS | Encounter Summary ---
Author Organization [employer] Address [address] [place] [address] 7t [place] [address] Care Team Providers Care Equine Internship Name Role Phone Anna Jaquez MD Primary Care Provide r Reason for Visit * Reason Onset Date Comments Nurse Triage 10/20/2022 Encounter Details Date Type Department Care Team ([facility] st Contact Info) Description 10/20/2022 Telephone [facility] MEDICINE [address] [place], [place] [phone] Anna Jaquez MD [address] [place] [address] Nurse Triage Social History Tobacco Use Types Packs/Day Years Used Date Smoking Tobacco: Never Smokeless Tobacco: Never Comments Unknown Sex and Gender Information Value Date Recorded Sex Assigned at Female 02/17/2022 10:14 AM EDT Legal Sex Female 10:14 AM EDT Gender Identity Female 10/20/2022 3:55 PM EDT Sexual Orientation Straight 10/20/2022 3: 55 PM EDT COVID-19 Exposure Response Date Recorded In the last 10 days, have yo u been in contact with someone who was confirmed or suspected to have Coronavirus/COVID-19? No / Unsure 10/20/2022 4:05 PM EDT documented as of this encounter Miscellaneous Notes * Telephone Encounter - Marina Guzman RN - 10/20/2022 12:06 PM EDT Triage call with [employer] Rep[employer] Technician [place] [id number] Pt reports constant headaches for quite a while . Pt reports taking ibuprofen for these headaches . At time of call headache is mild and no blurry vision but, on occasion vision becomes blurred. Negfor fever or injury. Pt requests to be seen for tests to be done. Advised to come to [facility] today mavis seen by provider and Pt agrees. Protocol Used: Headache (Adult) Protocol-Based Disposition: See in Office or Video Visit Today Video visit not offered Positive Triage Question: * Patient wants to be seen * All higher-acuity triage questions were negative Care Advice Discussed: * Reassurance and Education - Migraine Headache * Reassurance and Education - Muscle Tension Headache * Pain Medicines * Pain Medicines - Extra Notes and Warnings * Migraine Medication * Rest * Apply Cold to the Area * Stretching * Reasons To Call Back - Headache lasts longer than 24 hours - You become worse * Telephone Encounter - Kell Johnson - 10/20/2022 11:51 AM EDT Symptom: Headache Outcome: Schedule an urgent appointment (within 4 hours) or talk to a nurse or provider soon Reason: Getting worse The caller accepted this outcome Please contact pt at [phone] Polish Speaker documented in this encounter Plan of Treatment Not on file documented as of this encounter Visit Diagnoses Not on filedocumented in this encounter Care Teams Equine Internship Relationship Specialty Start Date End Date Anna Jaquez MD [address] [place] [address] PCP - General Family Medicine 01/08/18 documented as of this encounter
--- OUTSIDE RECORDS SUMMARY | 2024-06-08 14:18 | XMS_ITS | Encounter Summary ---
Author Organization [email or web address] Address [address] [facility] 7t [place] [address] Care Team Providers Care Construction Recruiter Name Role Phone Anna Jaquez MD Primary Care Provide r Encounter Details Date Type Department Care Team ([facility] st Contact Info) Description 02/08/2024 Orders Only [facility] MEDICINE [address] [place] [address] ProviderMarshall MD Social History Tobacco Use Types Packs/Day Years [...] on file documented as of this encounter Procedures Procedure Name Priority Date/Time Associated Diagnosis Comments COLPOSCOPY Routine 05/07/2023 1:42 PM EST HM PAP/HPV Routine 03/30/2023 1:41 PM EST documented in this encounter Results * Colposcopy (05/07/2023 1:42 PM EST) us Historical Provider IN CLINIC/BEDSIDE ORDERAB LES Final Result * HM PAP/HPV (03/30/2023 1:41 PM EST) us Historical Provider HEALTH MAINTENANCE Final Result documented in this encounter Visit Diagnoses Not on filedocumented in this encounter Additional Health Concerns Assessment Noted Time PHQ-9 Depression Total Score: 0 09/30/19 24 2:21 PM EDT documented as of this encounter Care Teams Construction Recruiter Relationship Specialty Start Date End Date Anna Jaquez MD [address] [place] [id number] PCP - General Family Medicine 01/08/18 documented as of this encounter
--- OUTSIDE RECORDS SUMMARY | 2024-06-08 14:18 | XMS_ITS | Clinical Summary ---
Author Organization [employer] Address [address] [facility] 7t [place] [address] Care Team Providers Care Piece Dyer Name Role Phone Anna Jaquez MD Primary Care Provide r Allergies No known active allergies Medications ibuprofen 800 MG tablet TAKE 1 TABLET BY MOUTH THREE TIMES DAILY WITH FOOD NEEDED 3 Active naproxen (Naprosyn) 500 MG tabletIndications :Pain TAKE 1 TABLET BY MOUTH TWICE DAILY EVERY 12 HOURS NEEDED FOR PAIN 3 Active SUMAtriptan (Imitrex) 25 MG tabletIndications :Migraine without aura and without status migrainosus, not intractable Take 1 tablet (25 mg) by mouth 1 (one) time if needed for migraine for up to 36 doses. May repeat dose once in 2 hours if no relief. Do not exceed 2 doses in 24 hours. 9 tablet 3 5 Active amitriptyline (Elavil) 10 MG tabletIndications :Migraine without status migrainosus, not intractable, unspecified migraine type Take 1 tablet (10 mg) by mouth at bedtime. 30 tablet 3 5 08/26/19 25 Active albuterol 108 (90 Base) MCG/ACT inhalerIndication s:Mild intermittent asthma without complication Inhale 2 puffs every 6 (six) hours if needed for wheezing. 18 g 1 5 04/27/19 26 Active Active Problems Problem Noted Date Diagnosed Date Genital warts 09/30/2023 Bilateral post-traumatic osteoarthritis of knee 09/30/2023 Arthritis of right hip 09/30/2023 Polyarthralgia 09/30/2023 Mild intermittent asthma without complication Assessment & Plan (09/30/2023 4:26 PM EDT): Patient educated to avoid asthma triggers Albuterol inhaler to be used PRN q 4-6hrs prescribed Elevated LFTs 05/11/2023 Assessment & Plan (09/30/2023 4:26 PM EDT): LFTS and lipid panel will be re-check Assessment & Plan (05/13/2023 2:03 PM EST): I will continue to monitor her LFTs, right now its to soon in about 3-6 months I advise healthy diet Migraine 04/16/2023 Overview (04/16/2023): ?? Continues with sumatriptan 25mg PRN Assessment & Plan (09/30/2023 4:26 PM EDT): I advise to avoid migraine triggers like red wine, chocolate, cheese, strong perfumes Assessment & Plan (06/09/2023 9:49 AM EST): I advise to avoid migraine triggers like red wine, chocolate, cheese, strong perfumes C/w amitryptiline 10mg at bed time C/w sumatriptan 25mg PRN RTC 4 months Assessment & Plan (05/13/2023 2:04 PM EST): I will start her on amitriptyline C/w sumatriptan PRN I advise to avoid migraine triggers like red wine, chocolate, cheese, strong perfumes RTC 2 weeks televisit Healthcare maintenance 04/15/2023 Overview (04/16/2023): ?? Pap: 12/16/21 NILM, HPV neg ([facility] CNM) ?? Mammo: reported hx of breast biopsy & mammo at [facility]. Records requested ?? Colonoscopy: routine screening starting at 45 y/o ?? Last PE: 04/15/23 Assessment & Plan (04/16/2023 4:43 PM EST): -Routine labwork ordered, declined STI since no new partners since last sexual encounter Chloasma 12/04/2017 04/15/2023 Tibia anupama 02/06/2012 04/15/2023 Assessment & Plan (04/16/2023 11:12 AM EST): ?? Following with [facility] Ortho Encounters Date Type Department Care Team Description 05/06/[address] [address] Anna Jauqez MD No Show 04/27/[address] [address] Anna Jaquez MD Migraine without aura and without status migrainosus, not intractable; Migraine without status migrainosus, not intractable, unspecified migraine type; Mild intermittent asthma without complication 04/27/2024 Patient Outreach [address] [address] Anna Jaquez MD Pre-visit Planning (SDOH screening completed on 09/30/2023) 03/22/[address] [address] Anna Jaquez MD provider out 03/21/[address] [address] Ioana Underwood [place] Chart Prep 03/08/2024 Patient Outreach [address] [address] Anna Jaquez MD Pre-visit Planning (SDOH screening completed on 09/30/2023) from Last 3 Months Immunizations Name Administration Dates Next Due Hep B, adult 09/03/2006 Influenza, Split (incl. purified surface antigen ) 05/06/2012 TD (adult), 2 Lf tetanus tox oid, preservative free, adsorbed 10/06/2006 Tdap 01/15/2018 Family History Medical History Relation Name Comments Down syndrome Brother 1 Down syndrome Brother 2 Stroke Father Diabetes type II Mother Hyperlipidemia Mother Hypertension Mother cancer genital Mother Relation Name Status Comments Brother 1 Brother 2 Alive Father Mother Social History Tobacco Use Types Packs/Day Years Used Date Smoking Tobacco: Never Passive Smoke Exposure: Never Smokeless Tobacco: Never Tobacco Cessation:Counseling Given: Not Answered Alcohol Use Standard Drinks/Week Comments Never 0 [...] Orientation Straight 10/20/2022 3: 55 PM EDT Last Filed Vital Signs Vital Sign Reading Time Taken Comments Blood Pressure 138/96 02/12/2024 10:24 AM EDT Pulse 100 02/12/2024 10:24 AM EDT Temperature 36.2 ??C (97.2 ??F) 02/12/2024 10:24 AM E DT Respiratory Rate 18 02/12/2024 10:24 AM EDT Oxygen Saturation 96% 02/12/2024 10:24 AM EDT Inhaled Oxygen Concentration - - Weight 81.8 kg (180 lb 6.4 oz) 02/12/2024 10:24 AM EDT Height 152.4 cm (5') 09/30/2023 2:20 PM EDT Body Mass Index 35.23 09/30/2023 2:20 PM EDT Plan of Treatment Health Maintenance Due Date Last Done Comments CT Colonography 1978 Colonoscopy 1978 Colorectal Cancer Screening 1978 FIT DNA/Cologuard 1978 FIT 1978 FOBT 1978 Sigmoidoscopy 1978 Family Planning (PISQ) 1993 Pneumococcal Vaccine: Pediatrics (0 to 5 Years) and At-Risk Patients (6 to 49) Years) (1 of 2 - PCV) 1997 Hepatitis B Vaccines (2 of 3 - 19+ 3-dose series) 10/01/2006 09/03/2006 COVID-19 Vaccine (2023-2 5 season) 2023 02/19/2021, 01/29/2021 Influenza Vaccine (#1) 2023 05/06/2012 Cervical Cancer Screening 05/07/2024 HPV/Cotest 05/07/2024 12/16/2021, 12/16/2021 Pap Smear 05/07/2024 03/30/2023 Mammogram 07/30/2024 07/31/2023, 01/28/2019 Alcohol/Substance Use Screening 09/29/2024 09/30/2023 Depression Screening 09/29/2024 09/30/2023, 09/30/2023 SDOH Screening 09/29/2024 09/30/2023 Tobacco Screening 02/11/2025 02/12/2024 DTaP/Tdap/Td Vaccines (2 - T d or Tdap) 01/16/2028 01/15/2018, 10/06/2006 Zoster Vaccines (1 of 2) 2028 RSV Patients and Patients Aged 60 years or older (1 - 1-dose 75+ series) 2053 HIV Screening Completed 12/18/2021 Hepatitis C Screening Completed 12/18/2021 HIB Vaccines Aged Out No longer eligi [...] patient's age to complete this topic Meningococcal Vaccine Aged Out No bruno karan eligible based on patient's age to complete this topic RSV under 20 months Aged Out No longe r eligible based on patient's age to complete this topic Rotavirus Vaccines Aged Out No longer eligible based on patient's age to complete this topic Procedures Procedure Name Priority Date/Time Associated Diagnosis Comments BI MAMMOGRAM DIAGNOSTIC TOMOSYNTHESIS RIGHT Routine 07/31/2023 1:25 PM EDT HM PAP/HPV Routine 03/30/2023 1:41 PM EST ZZZ HISTORICAL HIV AB/AG Routine 12/18/2021 12:11 PM EDT ZZZ HISTORICAL HPV E6/E7 RFLX ANDREE 16 18/45 Routine 12/16/2021 11:46 AM EDT from Last 3 Months or Most Recently Relevant to Health Maintenance Results * BI Mammogram Diagnostic Tomosynthesis Right (07/31/2023 1:25 PM EDT) Anatomical Region Laterality Modality Breast Right Mammography 07/31/2023 1:25 PM EDT Narrative 07/31/2023 2:13 PM EDT ? [facility] ? [address] ?[place] [address] ? Mammography Report ? Signed ? Patient: Opal,Nae ?MR#: [id number] ? : 1980 ?Acct:[id number] ? Age/Sex: 42 / F ?ADM Date: 04/12/24 ? Loc: HO.MAMMO ? Attending Dr: Dawna Casiano CNM ? Ordering Physician: Dawna Casiano CNJeremy ?Results: 2Beni ?? gn Findings ? Date of Service: 07/31/23 ?Follow Up: 1 Year From Orig ?? inal Mammogram ? Procedure(s): MM tomosynthesis diagnostic RT ?? Accession Number(s): [id number] ? cc: Anna Jaquez MD; Dawna Casiano CNM ? EXAMINATION: ?? MM DIAGNOSTIC DIGITAL BREAST TOMOSYNTHESIS, RIGHT ? CLINICAL INFORMATION: ? 6 month follow-up for probably benign right breast calcifications mid ?? central right breast. If stable this will establish two-year stability ?? and benignity. ? COMPARISON: ?? Mammography: 02/02/2023, 06/26/2022. 11/22/2021, 11/19/2021 (BI-RADS ?? 0), 11/12/2020, 11/09/2019. ? TECHNIQUE: ?? Digital breast tomosynthesis is performed in the following views: ?? Full-field 3-D right CC, right MLO, and right mediolateral views, as ?? well as 2-D spot magnification right ML and CC views. Computer-aided ?? diagnosis was used for this study. ? FINDINGS: ?? The breasts are heterogeneously dense, which may obscure small masses ?? (ACR BI-RADS breast composition Category c). ? A tiny group of punctate, round, non-pleomorphic calcifications is ?? again noted in the central slightly upper slightly lateral right ?? breast, middle one third. These are completely unchanged without ?? aggressive morphology. These have remained stable since 11/22/2021, ?? establishing a two-year stability and benignity. No further follow-up ?? recommended. ? There are no additional suspicious findings in the right breast. There ?? are no skin or axillary abnormalities. Stable heterogeneously dense ?? parenchymal pattern. ? MM/MM tomosynthesis diagnostic RT ?? IMPRESSION: ?? -No mammographic evidence of malignancy right breast. ? -Central right breast calcifications are unchanged, stable over 2 ?? years, and benign. No further follow-up recommended. ? -Recommend the patient return to routine annual bilateral screening. ? ASSESSMENT: ? BI-RADS BI-RADS 2 - Benign Findings ? RECOMMENDATION: ?? 1 year F/U ? Results were provided to the patient at time of visit by the ?? technologist. ? This patient's information was entered into a reminder system with a ?? target due date for their next mammogram. ? Dictated By: ?Wallace Amanda MD ? Signed By: ?<Electronically signed by Wallace Amanda MD in OV> ?07/31/23 1409 ? DD/ 1325 ? TD/TT: ? Spool Worker: ? Procedure Note Norma, Image - 07/31/2023 [facility] [address] [place] [id number] Mammography Report Signed Patient: Ana Joseph#: [id number] : 1980Acct:[id number] Age/Sex: 42 / FADM Date: 07/31/23 Loc: EMETERIOO Attending Dr: Dawna Casiano CNJeremy Ordering Physician: Dawna CasianoMResults: 2Beni gn Findings Date of Service: 07/31/23Follow Up: 1 Year From Orig inal Mammogram Procedure(s): MM tomosynthesis diagnostic RT Accession Number(s): [id number] cc: Anna Jaquez MD; Dawna Casiano CNM EXAMINATION: MM DIAGNOSTIC DIGITAL BREAST TOMOSYNTHESIS, RIGHT CLINICAL INFORMATION: 6 month follow-up for probably benign right breast calcifications mid central right breast. If stable this will establish two-year stability and benignity. COMPARISON: Mammography: 02/02/2023, 06/26/2022. 11/22/2021, 11/19/2021 (BI-RADS 0), 11/12/2020, 11/09/2019. TECHNIQUE: Digital breast tomosynthesis is performed in the following views: Full-field 3-D right CC, right MLO, and right mediolateral views, as well as 2-D spot magnification right ML and CC views. Computer-aided diagnosis was used for this study. FINDINGS: The breasts are heterogeneously dense, which may obscure small masses (ACR BI-RADS breast composition Category c). A tiny group of punctate, round, non-pleomorphic calcifications is again noted in the central slightly upper slightly lateral right breast, middle one third. These are completely unchanged without aggressive morphology. These have remained stable since 11/22/2021, establishing a two-year stability and benignity. No further follow-up recommended. There are no additional suspicious findings in the right breast. There are no skin or axillary abnormalities. Stable heterogeneously dense parenchymal pattern. MM/MM tomosynthesis diagnostic RT IMPRESSION: -No mammographic evidence of malignancy right breast. -Central right breast calcifications are unchanged, stable over 2 years, and benign. No further follow-up recommended. -Recommend the patient return to routine annual bilateral screening. ASSESSMENT: BI-RADS BI-RADS 2 - Benign Findings RECOMMENDATION: 1 year F/U Results were provided to the patient at time of visit by the technologist. This patient's information was entered into a reminder system with a target due date for their next mammogram. Dictated By: Wallace Amanda MD Signed By: <Electronically signed by Wallace Amanda MD in OV> 07/31/23 3179 DD/ 1325 TD/TT: Spool Worker: [facility] External Provider IMG BI PROCEDURES Final Result * HM PAP/HPV (03/30/2023 1:41 PM EST) Historical Provider HEALTH MAINTENANCE Final Result * HIV AB/AG (12/18/2021 12:11 PM EDT) [facility] HIV AB/AG Nonreactive Nonreactive [facility] Comment: HIV-1 p24 Ag and/or HIV-1/HIV-2 Ab not detected. ?? A test result that is nonreactive does not exclude the possibility of exposure to or infection with HIV-1 and/or HIV-2. Nonreactive results in this assay for individuals with prior exposure to HIV-1 and/or HIV-2 may be due to antigen and antibody levels that are below the limit of detection of this assay. ?? [employer] [facility] HIV Ag/Ab Combo assay result and supplemental assay results should be interpreted in conjunction with the patient's clinical presentation, history and other laboratory results. ??If the results are inconsistent with clinical evidence, additional testing is suggested to confirm the result. Hepatitis B Core Antibody Nonreactive Nonreactive [facility] Hepatitis C Antibody Nonreactive Nonreactive [facility] Comment: Antibodies to HCV not detected; does not exclude early acute HCV infection. 12/18/2021 12:1 1 PM EDT Dawna Casiano HISTORICAL/NON ORDERABLE LABS Fi nal Result [facility] [address] * HPV E6/E7 RFLX ANDREE 16 18/45 (12/16/2021 11:46 AM EDT) [facility] HPV 16 RNA [facility] HPV 18/45 RNA TNP [facility] HPV E6 E7 ADD TNP [facility] HPV mRNA E6/E7 rflx Not Detected Not Detected [facility] Comment: Methodology: Control Operator-Mediated Amplification This assay detects E6/E7 viral messenger RNA (mRNA) from 14 high-risk HPV types (16,18,31,33,35,39,45,51,52,56,58,59,66,68). Cervical sources are required for HPV testing. If a vaginal source from a patient who has had a total hysterectomy with removal of cervix was submitted, please contact the testing laboratory for alternative testing options. For additional information, please refer to http://education.GiveNext/faq/FPG490h8 (This link if provided for information/ educational purposes only.) THIS TEST WAS PERFORMED AT: [facility] [address] [place] [address] [address] [place], [place] ??[phone] DYLON HUSAIN MD 12/16/2021 11:4 6 AM EDT us Dawna Casiano HISTORICAL/NON ORDERABLE LABS Fi nal Result [facility] [address] from Last 3 Months or Most Recently Relevant to Health Maintenance Insurance [facility] [employer] MEDICARE REPLACEMENT Care Teams Piece Dyer Relationship Specialty Start Date End Date Anna Jaquez MD [address] [place] [id number] PCP - General Family Medicine 01/08/18
== END 2024-06-08 15:01 | disposition home or self-care (01) ==
LOC: HO.HWS 14:04
PROVIDERS: PCP Internal Medicine; Visit Provider Obstetrics & Gynecology
DX: B07.8 Other viral warts (principal); L91.8 Other hypertrophic disorders of the skin
CPT/HCPCS: 11200

== ENCOUNTER 2024-06-08 14:04 | Outpatient (REF) | payer MEDICARE, SELFPAY ==
--- OUTSIDE RECORDS SUMMARY | 2024-06-08 14:54 | XMS_ITS | Encounter Summary ---
Author Organization [employer] Address [address] [facility] 7t [place] [address] Care Team Providers Care Peoplesoft Financials Name Role Phone Anna Jaquez MD Primary Care Provide r Reason for Visit * Reason Comments Med Refill Encounter Details Date Type Department Care Team (Late st Contact Info) Description 11/11/2023 Refill [facility] MEDICINE [address] [place], [place] [phone] Anna Jaquez MD 230 [place] [address] Mild intermittent asthma without complication Social History [...] documented as of this encounter Care Teams Peoplesoft Financials Relationship Specialty Start Date End Date Anna Jaquez MD [address] [place] [address] PCP - General Family Medicine 01/08/18 documented as of this encounter
--- OUTSIDE RECORDS SUMMARY | 2024-06-08 14:54 | XMS_ITS | Clinical Summary ---
Author Organization [facility] ity Address [address] [place] [address] Care Team Providers Care Marketing And Communications Officer Name Role Phone Unavailable Primary Care Provider [...]
--- OUTSIDE RECORDS SUMMARY | 2024-06-08 14:54 | XMS_ITS | Encounter Summary ---
Author Organization [employer] Address [address] [place] [address] 7t [place] [address] Care Team Providers Care Insurance Assistant Name Role Phone Anna Jaquez MD Primary Care Provide r Reason for Visit * Reason Onset Date Comments Nurse Triage 10/20/2022 Encounter Details Date Type Department Care Team ([facility] st Contact Info) Description 10/20/2022 Telephone [facility] MEDICINE 230 [place], [place] [phone] Anna Jaquez MD 230 [place] [address] Nurse Triage Social History Tobacco Use Types [...] encounter Miscellaneous Notes * Telephone Encounter - Marnia Guzman RN - 10/20/2022 12:06 PM EDT Triage call with [employer] [employer] Operator [place] [id number] Pt reports constant headaches for quite a while . Pt reports taking ibuprofen for these headaches . At time of call headache is mild and no blurry vision but, on occasion vision becomes blurred. Negfor fever or injury. Pt requests to be seen for tests to be done. Advised to come to [facility] today mavis seen by provider [...] accepted this outcome Please contact pt at [phone] English Speaker documented in this encounter Plan of Treatment Not on file documented as of this encounter Visit Diagnoses Not on filedocumented in this encounter Care Teams Insurance Assistant Relationship Specialty Start Date End Date Anna Jaquez MD [address] [place] [id number] PCP - General Family Medicine 01/08/18 documented as of this encounter
--- OUTSIDE RECORDS SUMMARY | 2024-06-08 14:54 | XMS_ITS | Encounter Summary ---
Author Organization [employer] Address [address] [place] [address] 7 [place] [address] Care Team Providers Care Housekeeping Cleaner Name Role Phone Anna Jaquez MD Primary Care Provide r Reason for Visit * Reason Comments Med Refill Encounter Details Date Type Department Care Team (Late st Contact Info) Description 07/22/2023 Refill [facility] MEDICINE 230 [place], [place] [phone] Anna Jaquez MD 230 [place], [place] [phone] Migraine without status migrainosus, not intractable, unspecified [...] documented as of this encounter Care Teams Housekeeping Cleaner Relationship Specialty Start Date End Date Anna Jaquez MD [address] [place] [address] PCP - General Family Medicine 01/08/18 documented as of this encounter
--- OUTSIDE RECORDS SUMMARY | 2024-06-08 14:54 | XMS_ITS | Encounter Summary ---
Author Organization [employer] Address [address] [facility] 7t [place] [address] Care Team Providers Care Internet Site Designer Name Role Phone Anna Jaquez MD Primary Care Provide r Encounter Details Date Type Department Care Team ([facility] st Contact Info) Description 02/08/2024 Orders Only [facility] MEDICINE [address] [place] [address] ProviderMarshall MD Social History Tobacco Use Types [...] documented as of this encounter Care Teams Internet Site Designer Relationship Specialty Start Date End Date Anna Jaquez MD [address] [place] [address] PCP - General Family Medicine 01/08/18 documented as of this encounter
--- OUTSIDE RECORDS SUMMARY | 2024-06-08 14:54 | XMS_ITS | Clinical Summary ---
Author Organization [employer] Address [address] [facility] 7t [place] [address] Care Team Providers Care Manager Retail Store Name Role Phone Anna Jaquez MD Primary [...] (04/16/2023): ?? Pap: 12/16/21 NILM, HPV neg ([facility] CNM) ?? Mammo: reported hx of breast biopsy & mammo at [facility]. Records requested ?? Colonoscopy: routine screening starting at 45 y/o ?? Last PE: 04/15/23 Assessment & Plan (04/16/2023 4:43 PM EST): -Routine labwork ordered, declined STI since no new partners since last sexual encounter Chloasma 12/04/2017 04/15/2023 Tibia anupama 02/06/2012 04/15/2023 Assessment & Plan (04/16/2023 11:12 AM EST): ?? Following with [facility] Ortho Encounters Date Type Department Care Team Description 05/06/[address] [address] Anna Jaquez MD No Show 04/27/[address] [address] Anna Jaquez MD Migraine without aura and without status migrainosus, not intractable; Migraine without status migrainosus, not intractable, unspecified migraine type; Mild intermittent asthma without complication 04/27/2024 Patient Outreach [address] [address] Anna Jaquez MD Pre-visit Planning (SDOH screening completed on 09/30/2023) 03/22/[address] [address] Anna Jaquez MD provider out 03/21/[address] [address] Ioana Underwood [place] Chart Prep 03/08/2024 Patient Outreach [address] [address] Anna Jaquez MD Pre-visit Planning (SDOH screening [...] EDT Narrative 07/31/2023 2:13 PM EDT ? [facility] [place] ? [address] ?[place] [address] ? Mammography Report ? Signed ? Patient: Opal,Nae ?MR#: [id number] ? : 1980 ?Acct:[id number] ? Age/Sex: 42 / F ?ADM Date: 04/12/24 ? Loc: HO.MAMMO ? Attending Dr: Dawna Casiano CNM ? Ordering Physician: Dawna Casiano CNJeremy ?Results: 2Beni ?? gn Findings ? Date of Service: 07/31/23 ?Follow Up: 1 Year From Orig ?? inal Mammogram ? Procedure(s): MM tomosynthesis diagnostic RT ?? Accession Number(s): [id number] ? cc: Anna Jaquez MD; Dawna Casiano [...] 1409 ? DD/ 1325 ? TD/TT: ? City Wellness Coordinator: ? Procedure Note Norma, Image - 07/31/2023 [facility] [facility] [address] [place] [address] Mammography Report Signed Patient: Ana Joseph#: [id number] : 1980Acct:[id number] Age/Sex: 42 / FADM Date: 07/31/23 Loc: EMETERIOO Attending Dr: Dawna Casiano CNJeremy Ordering Physician: Dawna CasianoMResults: 2Beni gn Findings Date of Service: 07/31/23Follow Up: 1 Year From Orig inal Mammogram Procedure(s): MM tomosynthesis diagnostic RT Accession Number(s): [id number] cc: Anna Jaquez MD; Dawna Casiano CNM [...] by Wallace Amanda MD in OV> 07/31/23 9407 DD/ 1325 TD/TT: City Wellness Coordinator: [facility] External Provider IMG BI PROCEDURES Final Result * HM PAP/HPV (03/30/2023 1:41 PM EST) Historical Provider HEALTH MAINTENANCE Final Result * HIV AB/AG (12/18/2021 12:11 PM EDT) [facility] HIV AB/AG Nonreactive Nonreactive [facility] [...] detection of this assay. ?? The Walker Rate Examiner HIV Ag/Ab Combo assay result and supplemental [...] Result [facility] [address] * HPV E6/E7 RFLX ANDREE 16 18/45 (12/16/2021 11:46 AM EDT) [facility] HPV 16 RNA [facility] HPV 18/45 RNA [facility]NP [facility] HPV E6 E7 ADD [facility]NP [facility] HPV mRNA E6/E7 rflx Not Detected Not Detected [facility] Comment: Methodology: Train Clerk-Mediated Amplification This assay detects E6/E7 viral messenger RNA (mRNA) from 14 high-risk HPV types (16,18,31,33,35,39,45,51,52,56,58,59,66,68). Cervical sources are required for HPV testing. If a vaginal source from a patient who has had a total hysterectomy with removal of cervix was submitted, please contact the testing laboratory for alternative testing options. For additional information, please refer to http://education.[employer]/faq/LXN285j6 (This link if provided for information/ educational purposes only.) THIS TEST WAS PERFORMED AT: [facility] [address] [place] [address] [address] [place], [place] ??[address] DYLON HUSAIN MD 12/16/2021 11:4 6 AM EDT us Dawna Casiano HISTORICAL/NON ORDERABLE LABS Fi nal Result [facility] [address] from Last 3 Months or Most Recently Relevant to Health Maintenance Insurance [facility] STANDARD AETNA MEDICARE REPLACEMENT Care Teams Manager Retail Store Relationship Specialty Start Date End Date Anna Jaquez MD [address] [place] [phone] PCP - General Family Medicine 01/08/18
== END 2024-06-08 14:05 | disposition home or self-care (01) ==
LOC: HO.LNP 14:04
PROVIDERS: PCP Internal Medicine; Visit Provider Obstetrics & Gynecology
DX: L91.8 Other hypertrophic disorders of the skin (principal)
CPT/HCPCS: 11200; 88304; 88305

== ENCOUNTER 2024-06-08 15:17 | Outpatient (REF) | payer MEDICARE, SELFPAY ==
--- OUTSIDE RECORDS SUMMARY | 2024-06-08 15:21 | XMS_ITS | Encounter Summary ---
Author Organization [employer] Address 75 [facility] 7t [place] [address] Care Team Providers Care Manager Float Name Role Phone Anna Jaquez MD Primary Care Provide r Encounter Details Date Type Department Care Team ([facility] st Contact Info) Description 02/08/2024 Orders Only [facility] MEDICINE [address] [place] [address] ProviderMarshall MD Social History Tobacco Use Types [...] documented as of this encounter Care Teams Manager Float Relationship Specialty Start Date End Date Anna Jaquez MD [address] [place] [address] PCP - General Family Medicine 01/08/18 documented as of this encounter
--- OUTSIDE RECORDS SUMMARY | 2024-06-08 15:21 | XMS_ITS | Encounter Summary ---
Author Organization [employer] Address [address] [place] [address] 7 [place] [address] Care Team Providers Care Bandmill Operator Name Role Phone Anna Jaquez MD Primary Care Provide r Reason for Visit * Reason Comments Med Refill Encounter Details Date Type Department Care Team (Late st Contact Info) Description 07/22/2023 Refill [facility] MEDICINE 230 [place], [place] [phone] Anna Jaquez MD 230 [place], [place] [phone] Migraine without status migrainosus, not intractable, unspecified [...] documented as of this encounter Care Teams Bandmill Operator Relationship Specialty Start Date End Date Anna Jaquez MD 230 [place] [address] PCP - General Family Medicine 01/08/18 documented as of this encounter
--- OUTSIDE RECORDS SUMMARY | 2024-06-08 15:21 | XMS_ITS | Encounter Summary ---
Author Organization [employer] Address [address] [place] [address] 7t [place] [address] Care Team Providers Care Deputy Coroner Investigator Name Role Phone Anna Jaquez MD Primary Care Provide r Reason for Visit * Reason Onset Date Comments Nurse Triage 10/20/2022 Encounter Details Date Type Department Care Team ([facility] st Contact Info) Description 10/20/2022 Telephone [facility] MEDICINE 230 [place], [place] [phone] Anna Jaquez MD 230 [place] [address] Nurse Triage Social History Tobacco Use Types [...] 10/20/2022 12:06 PM EDT Triage call with [employer] [place] [id number] Pt reports constant headaches for quite a while . Pt reports taking ibuprofen for these headaches . At time of call headache is mild and no blurry vision but, on occasion vision becomes blurred. Negfor fever or injury. Pt requests to be seen for tests to be done. Advised to come to [facility] today mavis seen by provider [...] accepted this outcome Please contact pt at [phone] Sam[place] Speaker documented in this encounter Plan of Treatment Not on file documented as of this encounter Visit Diagnoses Not on filedocumented in this encounter Care Teams Deputy Coroner Investigator Relationship Specialty Start Date End Date Anna Jaquez MD [address] [place] [address] PCP - General Family Medicine 01/08/18 documented as of this encounter
--- OUTSIDE RECORDS SUMMARY | 2024-06-08 15:21 | XMS_ITS | Clinical Summary ---
Author Organization [employer] Address [address] [facility] 7t [place] [address] Care Team Providers Care Web Site Specialist Name Role Phone Anna Jaquez MD Primary [...] (04/16/2023): ?? Pap: 12/16/21 NILM, HPV neg ([facility] CNM) ?? Mammo: reported hx of breast biopsy & mammo at [facility]. Records requested ?? Colonoscopy: routine screening starting at 45 y/o ?? Last PE: 04/15/23 Assessment & Plan (04/16/2023 4:43 PM EST): -Routine labwork ordered, declined STI since no new partners since last sexual encounter Chloasma 12/04/2017 04/15/2023 Tibia anupama 02/06/2012 04/15/2023 Assessment & Plan (04/16/2023 11:12 AM EST): ?? Following with [facility] Ortho Encounters Date Type Department Care Team Description 05/06/[address] [address] Anna Jaquez MD No Show 04/27/[address] [address] Anna Jaquez MD Migraine without aura and without status migrainosus, not intractable; Migraine without status migrainosus, not intractable, unspecified migraine type; Mild intermittent asthma without complication 04/27/2024 Patient Outreach [address] [address] Anna Jaquez MD Pre-visit Planning (SDOH screening completed on 09/30/2023) 03/22/[address] [address] Anna Jaquez MD provider out 03/21/[address] [address] Ioana Underwood [place] Chart Prep 03/08/2024 Patient Outreach [address] [address] Anna Jaquez MD Pre-visit Planning (SDOH screening [...] EDT Narrative 07/31/2023 2:13 PM EDT ? [facility] [place] ? [address] ?[place] [address] ? Mammography Report ? Signed ? Patient: Opal,Nae ?MR#: [id number] ? : 1980 ?Acct:[id number] ? Age/Sex: 42 / F ?ADM Date: 04/12/24 ? Loc: HO.MAMMO ? Attending Dr: Dawna Casiano CNM ? Ordering Physician: Dawna Casiano CNJeremy ?Results: 2Beni ?? gn Findings ? Date of Service: 07/31/23 ?Follow Up: 1 Year From Orig ?? inal Mammogram ? Procedure(s): MM tomosynthesis diagnostic RT ?? Accession Number(s): [id number] ? cc: Anna Jaquez MD; Dawna Casiano [...] 1409 ? DD/ 1325 ? TD/TT: ? Online Affiliate Marketing Manager: ? Procedure Note Norma, Image - 07/31/2023 [facility] [address] [place] [address] Mammography Report Signed Patient: Ana Joseph#: [id number] : 1980Acct:[id number] Age/Sex: 42 / FADM Date: 07/31/23 Loc: EMETERIOO Attending Dr: Dawna Casiano CNJeremy Ordering Physician: Dawna CasianoMResults: 2Beni gn Findings Date of Service: 07/31/23Follow Up: 1 Year From Orig inal Mammogram Procedure(s): MM tomosynthesis diagnostic RT Accession Number(s): [id number] cc: Anna Jaquez MD; Dawna Casiano CNM [...] by Wallace Amanda MD in OV> 07/31/23 4161 DD/ 1325 TD/TT: Online Affiliate Marketing Manager: [facility] External Provider IMG BI PROCEDURES Final Result * HM PAP/HPV (03/30/2023 1:41 PM EST) Historical Provider HEALTH MAINTENANCE Final Result * HIV AB/AG (12/18/2021 12:11 PM EDT) [facility] [place] HIV AB/AG Nonreactive Nonreactive [facility] [...] detection of this assay. ?? The Walker Secondary Special Education Teacher HIV Ag/Ab Combo assay result and supplemental [...] Result [facility] [address] * HPV E6/E7 RFLX ANDREE 16 18/45 (12/16/2021 11:46 AM EDT) [facility] HPV 16 RNA [facility] HPV 18/45 RNA [facility]NP [facility] HPV E6 E7 ADD [facility]NP [facility] HPV mRNA E6/E7 rflx Not Detected Not Detected [facility] Comment: Methodology: Implement Mechanic-Mediated Amplification This assay detects E6/E7 viral messenger RNA (mRNA) from 14 high-risk HPV types (16,18,31,33,35,39,45,51,52,56,58,59,66,68). Cervical sources are required for HPV testing. If a vaginal source from a patient who has had a total hysterectomy with removal of cervix was submitted, please contact the testing laboratory for alternative testing options. For additional information, please refer to http://education.[employer]/faq/ZTO545c3 (This link if provided for information/ educational purposes only.) THIS TEST WAS PERFORMED AT: [facility] [address] [place] [address] [address] [place], [place] ??[address] DYLON HUSAIN MD 12/16/2021 11:4 6 AM EDT us Dawna Casiano HISTORICAL/NON ORDERABLE LABS Fi nal Result [facility] [address] from Last 3 Months or Most Recently Relevant to Health Maintenance Insurance [facility] STANDARD AETNA MEDICARE REPLACEMENT Care Teams Web Site Specialist Relationship Specialty Start Date End Date Anna Jaquez MD [address] [place] [address] PCP - General Family Medicine 01/08/18
--- OUTSIDE RECORDS SUMMARY | 2024-06-08 15:21 | XMS_ITS | Encounter Summary ---
Author Organization [employer] Address 75 [facility] 7t [place] [address] Care Team Providers Care Agency Trainer Name Role Phone Anna Jaquez MD Primary Care Provide r Reason for Visit * Reason Comments Med Refill Encounter Details Date Type Department Care Team (Late st Contact Info) Description 11/11/[address] [facility] MEDICINE 230 [place], [place] [phone] Anna Jaquez MD 230 [place] [address] Mild intermittent asthma without complication Social History [...] documented as of this encounter Care Teams Agency Trainer Relationship Specialty Start Date End Date Anna Jaquez MD [address] [place] [address] PCP - General Family Medicine 01/08/18 documented as of this encounter
--- OUTSIDE RECORDS SUMMARY | 2024-06-08 15:21 | XMS_ITS | Clinical Summary ---
Author Organization [facility] Address [address] [place] [address] Care Team Providers Care Commercial Real Estate Paralegal Name Role Phone Unavailable Primary Care Provider [...]
== END 2024-06-08 15:18 | disposition home or self-care (01) ==
LOC: HO.LNP 15:17
PROVIDERS: Visit Provider Obstetrics & Gynecology
DX: Z13.89 Encounter for screening for other disorder (principal)

== ENCOUNTER 2024-07-07 10:12 | Outpatient (AMB) | payer MEDICARE, SELFPAY ==
--- NOTE | 2024-07-07 10:13 | MHC.OFFVIS ---
Intake Visit Reasons: EMB Results Optical Effects Line Up Person Required: Yes Optical Effects Line Up Person Language: Roll Bucker Name: Valentine SINGH Information Interpreted: non-clinical & clinical Allergies No Known Allergies Allergy (Verified 06/08/24 14:07) HPI Comments Details: The patient is scheduled a telehealth visit after excision of vulvar lesions. Doing well with no complaints. The pathology showed the following: A. 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 B. Skin, left lower buttock, excision: Fibroepithelial polyp PFSH Medical History Heavy menses History of abnormal cervical Pap smear ASCUS of cervix with negative high risk HPV Pelvic pain Club foot of both lower extremities Depression with anxiety Surgical History Hx of unilateral oophorectomy History of tubal ligation Family History Brother Colon cancer Mother Ureter cancer Social History Alcohol intake: current Alcohol intake frequency: a few times a week Current occupational status: disabled Current occupation: Left Handed Sexual orientation: Straight/Heterosexual Gender identity: Female Female Reproductive History Menstrual Age of Menarche: 9 Review of Systems Const All systems reviewed & are unremarkable except as noted in HPI and below Reports as per HPI and Reports no additional complaints GI Reports no additional complaints Reports no additional complaints Telehealth Telehealth Telehealth Platform: Telephone Location of provider rendering services: practice address Location of patient: address on file Patient Identification confirmed using: Name, : Yes Telehealth method: video Patient verbally consented to treatment: Yes Patient verbally consented to billing insurance company: Yes Patient informed of any privacy concerns related to visit: Yes Minutes spent on Phone/Video with Pt.: 2 Assessment & Plan Assessment & Plan (1) Lesion of female perineum: Comment: 1 x0.3 cm R labia majora, 2x 0.3 cm L labia majora, 2xc0.3 cm L perirectal area Code(s): N90.9 - Noninflammatory disorder of vulva and perineum, unspecified Category: Medical Plan: Discussed with the patient the results the pathology. Instructions given the patient to call in case of recurrence of the lesions, open ulcers or hard areas. All questions answered, the patient verbalized understanding I spent a total of 20 minutes reviewing the chart, talking to the patient via video and documenting in the medical record. Coding Level of Care Code Tele Est Pt Level 3 (85858) Diagnoses Lesion of female perineum N90.9
== END 2024-07-07 11:39 | disposition home or self-care (01) ==
LOC: HO.HWS 10:12
PROVIDERS: PCP Internal Medicine; Visit Provider Obstetrics & Gynecology
DX: N90.9 Noninflammatory disorder of vulva and perineum, unspecified (principal)
CPT/HCPCS: 99213

== ENCOUNTER → 2024-07-07 10:12 | Outpatient (BNVA) | payer MEDICARE, SELFPAY | PROVIDERS: PCP Internal Medicine; Visit Provider Obstetrics & Gynecology ==

== ENCOUNTER 2024-08-03 09:23 | Outpatient (AMB) | payer MEDICARE, SELFPAY ==
--- NOTE | 2024-08-03 09:30 | A.OFFVIS_ITS ---
Vital Signs 08/03/24 09:38 Height 5 ft Weight 176 lb BMI 34.4 BP 116/68 Intake Visit Reasons: [employer] annual exam Skein Winder: Skein Winder Present (Renee) Accompanied by: Self / Same As Patient Allergies No Known Allergies Allergy (Verified 08/03/24 09:43) Medication List - Last Reconciled 08/03/24 by Christina Jimenez CNM bupropion HCl XL 150 mg PO QAM imiquimod 5% 1 appl topical 3XW 16 weeks naproxen (EC-Naproxen) 500 mg PO BID PRN [shoe lift Please evaluate and treat for right leg length discrepancy] trazodone 100 mg PO DAILY valacyclovir 1,000 mg PO TID Is last menstrual period known: Yes Last menstrual period: 07/28/24 Post menopausal: No Patient : No HPI HPI [employer] annual exam: Details: 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 Bridges and has see him quite recently for excision and evaluation of lesions on she has been happy with the results condyloma that were excised as well in the past have not returned she has imiquimod at home that was prescribed for but she has not use it recently. She is sexually active with a partner for about the last 6 months and she would like full testing for all STDs including blood work. She is not really worried about anything she just wants to be sure. She had her tubes tied she has a history of ovarian cyst removal ovary side. Her last Pap smear was abnormal that the biopsy was negative do a Pap smear and testing for STIs today. In addition she sometimes gets hot flashes she does notice slightly decreased libido at times but it does not worry her. Additionally her last few periods since the beginning of the year have been heavier and crampier. She feels she is healthy and she is working on losing weight by eating healthier and smaller portions and eating things like salads and avoiding greasy heavy foods. She has a mammogram coming up and she has not appointment with her primary coming up soon as well. 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 [facility] Medical History Heavy menses History of abnormal cervical Pap smear ASCUS of cervix with negative high risk HPV Pelvic pain Club foot of both lower extremities Depression with anxiety Surgical History Hx of unilateral oophorectomy History of tubal ligation Family History Brother Colon cancer Mother Ureter cancer Social History Alcohol intake: current Alcohol intake frequency: a few times a week Current occupational status: disabled Current occupation: Left Handed Sexual orientation: Straight/Heterosexual Gender identity: Female Female Reproductive History Menstrual Age of Menarche: 9 Duration of menses: 3-5 days Date of last menstrual period: 07/28/24 control method: none Total pregnancies: 4 Full term: 3 Ab spontaneous: 1 Date of last pap smear: 03/27/23 (positive pap smear/hpv) History of abnormal pap smear: Yes (2020 Asc[facility] ) Date of Mammogram: 07/31/23 (bi rad 2) Physical Exam Vital Signs: Last Vital Signs BP 116/68 08/03/24 09:38 BMI result Body Mass Index 34.4 Const Other: Patient is sniffly with head cold. General: healthy appearing, comfortable, no acute distress, well developed and alert Nutritional Appearance: average body habitus Orientation/consciousness: patient oriented x3 Limitations: no limitations HEENT Head: Yes normocephalic Neck Neck: Yes normal visual inspection Chest Chest palpation & inspection: normal inspection of the chest Breast/axilla inspection: normal inspection of the breasts and normal inspection of the axillae Breast/axilla palpation: normal palpation of the breasts and normal palpation of the axillae Resp Effort & Inspection: normal respiratory effort GI Inspection: Yes normal to inspection, No Abdominal wall edema and No distended Palpation (GI): Soft to palpation and nontender Other: No condyloma or other lesions seen on vulva and perineum. They appeared to have resolved and not returned Vagina pink and moist cervix multiparous pink within normal limits friable with Pap. Discharge appears fairly normal. Uterus is small retroverted mobile nontender adnexa nontender fair tone with Kegel. General: Yes bladder normal to palpation External Female Exam: normal external appearance and normal appearance of the urethra Speculum Exam - Vagina: normal appearance of the vagina, normal palpation and normal vaginal discharge Speculum Exam - Cervix: normal appearance of the cervix, normal palpation and nontender Bimanual exam- vagina & uterus: normal bimanual exam, normal palpation, uterine size normal, bladder normal to palpation, consistency normal, normal palpation, uterine mobility normal, uterine shape normal, No Cervical tenderness present, non-tender and no cervical motion tenderness Bimanual Exam- Adnexa, other: normal adnexae, no masses, normal and No adnexal tenderness Neuro General: patient oriented x3 Results Reviewed Results Reviewed: Name: Nae Joseph Age/Sex: 42/F Attending: Ramon Bridges MD : 1980 Submitted by: Ramon Bridges MD Copies to: MR #: [id number] Status: DEP REF Collected: 05/07/23 Location: [facility] Received: 05/07/23 Diagnosis A. Endocervix, curettage: Endocervical glandular mucosa with squamous metaplasia; negative for dysplasia. B. Cervix, 3:00, biopsy: Squamous and endocervical glandular mucosa with inflammation and metaplasia; negative for dysplasia. C. Cervix, 6:00, biopsy: Squamous and endocervical glandular mucosa with inflammation, metaplasia, and cysts; negative for dysplasia. D. Cervix, 9:00, biopsy: Squamous and endocervical glandular mucosa with inflammation, metaplasia, and cysts; negative for dysplasia. E. Cervix, 11:00, biopsy: Squamous and endocervical glandular mucosa with infla mmation, metaplasia, and cysts; negative for dysplasia. F. Cervix, 12:00, biopsy: Squamous and endocervical glandular mucosa with inflammation and metaplasia; negative for dysplasia. Comment: The patient's previous Pap test ([id number]) and the rare atypical cell present in the Pap is not seen in the current biopsies. Clinical History ASCUS with positive high risk HPV cervical Microscopic Description Microscopic sections reviewed. Material Received A. ECC B. Cx bx 3 o'clock C. Cx bx 6 o'clock D. Cx bx 9 o'clock E. Cx bx 11 o'clock F. Cx bx 12'clock Gross Description Received in 6 parts. Patient: Nae Joseph Age/Sex: 42/F MR#: [id number] Page 1 of 2 Surgical Pathology [id number] Part A: Received in formalin labeled ?ECC? is a 0.9 x 0.6 x 0.2 cm aggregate of predominantly mucus and blood with minute shards of pink-red tissue, submitted in toto in a cassette labeled A. Part B: Received in formalin labeled ?cx bx 3? along with a scant amount of clear and cloudy mucus is a 0.35 cm rubbery, gipson-pink wedge-shaped fragment of mucosa, submitted in toto in a cassette labeled B. Part C: Received in formalin labeled ?cx bx 6? is a 0.35 cm rubbery, mackenzie-white irregular fragment of mucosa, submitted in toto in a cassette labeled C. Part D: Received in formalin labeled ?cx bx 9? along with scant mucus is a 0.25 cm rubbery, gipson-pink irregular fragment of mucosa, submitted in toto in a cassette labeled D. Part E: Received in formalin labeled ?cx bx 11? is a 0.4 cm rubbery, gipson-pink wedge-shaped fragment of mucosa, submitted in toto in a cassette labeled E. Part F: Received in formalin labeled ?cx bx 12? along with scant clear and cloudy mackenzie-white mucus is a 0.35 cm rubbery, mackenzie-white irregular fragment of mucosa, submitted in toto in a cassette labeled F. CEDS NOTE: Unless otherwise stated, all tissue is formalin-fixed and paraffin- embedded. Some or all of the immunohistochemical tests reported herein may have been developed and their performance characteristics determined by [facility]. They have not been cleared or approved by the U.S. Food and Drug Administration (FDA). However, the FDA has determined that such clearance or approval is not necessary. This laboratory is certified under the Clinical Laboratory Improvement Amendments of 1988 (CLIA) as qualified to perform high complexity clinical laboratory testing. Electronically Signed By: Le Kendrick 05/08/23 1500 Patient: Nae Joseph Age/Sex: 42/F MR#: [id number] amanda: Nae Joseph Age/Sex: 42/F Attending: Ramon Bridges MD : 1980 Submitted by: Ramon Bridges MD Copies to: Anna Jaquez MD MR #: [id number] Status: DEP REF Collected: 10/28/23 Location: [facility] Received: 10/29/23 Diagnosis A. Vulva, right labia majora, biopsy: Condyloma acuminatum. B. Vulva, left labia majora, biopsy: Condyloma acuminatum. C. Soft tissue, perirectal lesion, biopsy: Condyloma acuminatum. Clinical History Pre-Op Dx: Lesion of female perineum Post-Op Dx: Pending Microscopic Description A-C. Microscopic sections reviewed. Material Received A. Right labia majora B. Left labia majora C. Perirectal lesion Gross Description A. Received in formalin labeled ?right labia majora lesion? is 1 gipson-mackenzie 3 mm epithelialized soft tissue fragment, totally submitted in cassette A1. B. Received in formalin labeled ?2 left labia majora? are 2 gipson-mackenzie 1 and 4 mm epithelialized soft tissue fragments, totally submitted in cassette B1. C. Received in formalin labeled ?2 left perirectal lesion? are 3 gipson-mackenzie 1-3 mm epithelialized soft tissue fragments, totally submitted in cassette C1. (KR) This case was reviewed intradepartmentally. Copies To Anna Jaquez MD [address] [id number] Ramon Bridges MD Patient: Nae Joseph Age/Sex: 42/F MR#: [id number] Page 1 of 2 amanda: Nae Joseph Age/Sex: 43/F Attending: Ramon Bridges MD : 1980 Submitted by: Ramon Bridges MD Copies to: Anna Jaquez MD MR #: [id number] Status: DEP REF Collected: 06/08/24 Location: [facility] Received: 06/09/24 Diagnosis A. 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 B. Skin, left lower buttock, excision: Fibroepithelial polyp. Clinical History Skin tag Microscopic Description A, B. Microscopic sections reviewed. Material Received A. Left upper skin tag B. Left lower skin tag Gross Description Received in two parts. Part A: Received in formalin labeled ?left upper skin lesion is a 0.8 x 0.6 x 0.35 cm granular and keratotic gipson papule of skin. The resected base is inked and the specimen is sectioned and entirely submitted in a cassette labeled A. Part B: Received in formalin labeled ?left lower skin lesion is a 0.45 cm in greatest dimension fragment of gipson skin with a central 0.3 cm granular and keratotic gipson papule. The resected base is inked and the specimen is submitted in toto in a cassette labeled B. CEDS Copies To Anna Jaquez MD [address] [id number] Ramon Bridges MD Patient: Nae Joseph Age/Sex: 43/F MR#: [id number] Page 1 of 2 Assessment & Plan Assessment & Plan (1) Atypical squamous cells of undetermined significance (ASCUS) on Papanicolaou smear of cervix: Comment: hx of ascus; 03/27/23 pap = ASCUS w Pos HPV- needs colpo; patient had colpo see findings. 08/03/2024 Pap smear done. Code(s): R87.610 - Atypical squamous cells of undetermined significance on cytologic smear of cervix (ASC-US) Category: Medical (2) Cervical lesion: Code(s): N88.9 - Noninflammatory disorder of cervix uteri, unspecified Category: Medical (3) Lesion of female perineum: Comment: 1 x0.3 cm R labia majora, 2x 0.3 cm L labia majora, 2xc0.3 cm L perirectal area Code(s): N90.9 - Noninflammatory disorder of vulva and perineum, unspecified Category: Medical (4) Potential exposure to STD: Code(s): Z20.2 - Contact with and (suspected) exposure to infections with a predominantly sexual mode of transmission Category: Medical (5) Condyloma acuminata: Comment: Currently no evidence of any, Code(s): A63.0 - Anogenital (venereal) warts Category: Medical (6) Women's annual routine gynecological examination: Code(s): Z01.419 - Encounter for gynecological examination (general) (routine) without abnormal findings Category: Medical Plan -----Discussed in this visit the following: healthy balanced diet, regular and consistent exercise, getting recommended health screens, doing the best she can for her particular health concerns, kegel exercises, pap smear screening and followup recommendations, mammography screening and SBE, normal changes in cycles in her life stage--- . Reviewed javon menopausal changes which she is beginning to experience reviewed the range of experiences in how different women perceive them she perceives the changes as normal and is just interested.. Testing ordered for HIV hep B hep C and syphilis per her request testing done d uring the visit for gonorrhea chlamydia trichomoniasis as well as bacterial vaginosis and yeast as well as the Pap smear. She is happy that the condyloma have not returned I recommend that she retain the prescription for the imiquimod in case she ever needed it in the future. 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 RTC 1 yr. Orders: Orders Hepatitis B Surface Antigen Today A63.0 - Anogenital (venereal) warts, N88.9 - Noninflammatory disorder of cervix uteri, unspecified, N90.9 - Noninflammatory disorder of vulva and perineum, unspecified, R87.610 - Atypical squamous cells of undetermined significance on cytologic smear of cervix (ASC-US), Z01.419 - Encounter for gynecological examination (general) (routine) without abnormal findings, Z20.2 - Contact with and (suspected) exposure to infections with a predominantly sexual mode of transmission Hepatitis C Antibody Today A63.0 - Anogenital (venereal) warts, N88.9 - Noninflammatory disorder of cervix uteri, unspecified, N90.9 - Noninflammatory disorder of vulva and perineum, unspecified, R87.610 - Atypical squamous cells of undetermined significance on cytologic smear of cervix (ASC-US), Z01.419 - Encounter for gynecological examination (general) (routine) without abnormal findings, Z20.2 - Contact with and (suspected) exposure to infections with a predominantly sexual mode of transmission HIV Ab/Ag Today A63.0 - Anogenital (venereal) warts, N88.9 - Noninflammatory disorder of cervix uteri, unspecified, N90.9 - Noninflammatory disorder of vulva and perineum, unspecified, R87.610 - Atypical squamous cells of undetermined significance on cytologic smear of cervix (ASC-US), Z01.419 - Encounter for gynecological examination (general) (routine) without abnormal findings, Z20.2 - Contact with and (suspected) exposure to infections with a predominantly sexual mode of transmission Syphilis Screen Today A63.0 - Anogenital (venereal) warts, N88.9 - Noninflammatory disorder of cervix uteri, unspecified, N90.9 - Noninflammatory disorder of vulva and perineum, unspecified, R87.610 - Atypical squamous cells of undetermined significance on cytologic smear of cervix (ASC-US), Z01.419 - Encounter for gynecological examination (general) (routine) without abnormal findings, Z20.2 - Contact with and (suspected) exposure to infections with a predominantly sexual mode of transmission Coding Level of Care Code Est Pt Prev Care 40-64y([id number]) Diagnoses Atypical squamous cells of undetermined significance (ASCUS) on Papanicolaou smear of cervix R87.610 Cervical lesion N88.9 Lesion of female perineum N90.9 Potential exposure to STD Z20.2 Condyloma acuminata A63.0 Women's annual routine gynecological examination [id number]
[2024-08-03 09:38] VITALS: BP 116/68; BMI 34.4
--- OUTSIDE RECORDS SUMMARY | 2024-08-03 10:19 | XMS_ITS | Encounter Summary ---
Author Organization [employer] Address [address] [place] [address] [address] [place] [address] Care Team Providers Care Supervisor Kennel Name Role Phone Anna Jaquez MD Primary Care Provide r Reason for Visit * Reason Comments Med Refill Encounter Details Date Type Department Care Team (Late st Contact Info) Description 07/22/2023 Refill [facility] [address] [place], [place] [phone] Anna Jaquez MD [address] [place], [place] [phone] Migraine without status migrainosus, not intractable, unspecified [...] documented as of this encounter Care Teams Supervisor Kennel Relationship Specialty Start Date End Date Anna Jaquez MD [address] [place] [address] PCP - General Family Medicine 01/08/18 documented as of this encounter
--- OUTSIDE RECORDS SUMMARY | 2024-08-03 10:19 | XMS_ITS | Encounter Summary ---
Author Organization [facility] Address [address] [facility] [address] [place] [address] Care Team Providers Care Out Of School Hours Care Worker Name Role Phone Anna Jaquez MD Primary Care Provide r Reason for Visit * Reason Comments Med Refill Encounter Details Date Type Department Care Team (Late st Contact Info) Description 11/11/2023 Refill [facility]INE [address], [place] [phone] Anna Jaquez MD [address] [place] [address] Mild intermittent asthma without complication Social History [...] documented as of this encounter Care Teams Out Of School Hours Care Worker Relationship Specialty Start Date End Date Anna Jaquez MD [address] [place] [id number] PCP - General Family Medicine 01/08/18 documented as of this encounter
--- OUTSIDE RECORDS SUMMARY | 2024-08-03 10:19 | XMS_ITS | Clinical Summary ---
Author Organization [employer] Address [address] [facility] 7t [place] [address] Care Team Providers Care Warehouse Freight Handler Name Role Phone Anna Jaquez MD Primary [...] (04/16/2023): ?? Pap: 12/16/21 NILM, HPV neg ([facility] CNM) ?? Mammo: reported hx of breast biopsy & mammo at [facility]. Records requested ?? Colonoscopy: routine screening starting at 43 y/o ?? Last PE: 04/15/23 Assessment & Plan (04/16/2023 4:43 PM EST): -Routine labwork ordered, declined STI since no new partners since last sexual encounter Chloanikiaa 12/04/2017 04/15/2023 Tibia kiet 02/06/2012 04/15/2023 Assessment & Plan (04/16/2023 11:12 AM EST): ?? Following with [facility] Ortho Encounters Date Type Department Care Team Description 06/08/2024 Orders Only GENERIC EXTERNAL DATA DEPARTMENT Provider, Generic External Data 05/06/[address] [facility] [address] [place] [address] [phone] Anna Jaquez MD No Show from Last 3 Months Immunizations Name Administration [...] the past 12 months, has t he [employer], gas, oil or water company threatened to [...] Procedure Name Priority Date/Time Associated Diagnosis Comments GROSS AND MICROSCOPIC LEVEL 3 Routine 06/08/2024 2:48 PM EST BI MAMMOGRAM DIAGNOSTIC TOMOSYNTHESIS RIGHT Routine 07/31/2023 1:25 PM EDT HM PAP/HPV Routine 03/30/2023 1:41 PM EST [facility] HISTORICAL HIV AB/AG Routine 12/18/2021 12:11 PM EDT [facility] HISTORICAL HPV E6/E7 RFLX ANDREE 16 18/45 Routine 12/16/2021 11:46 AM EDT from Last 3 Months or Most Recently Relevant to Health Maintenance Results * Gross and Microscopic Level 3 (06/08/2024 2:48 PM EST) 06/08/2024 2:48 PM EST 06/09/2024 8:19 AM EST [facility] - 06/13/2024 11:22 AM EST ----- ------- Name: Nae Joseph ? Age/Sex: 43/F ? : 1980 Unit#: [id number] ?? Attend Dr: Ramon Bridges MD ?Re06/08/24 ?Status: DEP REF ? Location: HO.LNP ?Disch: ? ----- ------- SPEC : [id number] ?RECD: 06/09/24 ? STATUS: ??SOUT ? REQ NUM: [id number] ? JEANETTE: 06/08/24 ? SUBM DR: Ramon Bridges MD ? ENTERED: ??06/09/24 ?SP TYPE: Surgical ? OTHR DR: Anna Jaquez MD ? ORDERED: ??Gross Micro L3/2 ? Diagnosis ?? A. 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 ? B. ??Skin, left lower buttock, excision: ??Fibroepithelial polyp. ?Clinical History Skin tag ?Microscopic Description A, B. ??Microscopic sections reviewed. ? Material Received ?? A. Left upper skin tag ?? B. Left lower skin tag ? Gross Description Received in two parts. Part A: ??Received in formalin labeled ?left upper skin lesion is a 0.8 x 0.6 x 0.35 cm granular and keratotic gipson papule of skin. ??The resected base is inked and the specimen is sectioned and entirely submitted in a cassette labeled A. Part B: ??Received in formalin labeled ?left lower skin lesion is a 0.45 cm in greatest dimension fragment of gipson skin with a central 0.3 cm granular and keratotic gipson papule. ??The resected base is inked and the specimen is submitted in toto in a cassette labeled BMike ADRIANE Copies To: ?? Anna Jaquez MD ?? [facility] ?? [address] ?? [place] [address] ?? [phone] ? CONTINUED ON NEXT PAGE ----- ------- Name: Nae Joseph ? Age/Sex: 43/F ? : 1980 Unit#: [id number] ?? Attend Dr: Ramon Bridges MD ?Re06/08/24 ?Status: DEP REF ? Location: HO.LNP ?Disch: ? ----- ------- SPEC : [id number] ?RECD: 06/09/24 ? STATUS: ??SOUT ? REQ NUM: [id number] ? JEANETTE: [birth year]/08/24-1919 ? SUBM DR: Ramon Bridges MD ? ENTERED: ??06/09/24-832 ?SP TYPE: Surgical ? OTHR DR: Anna Jaquez MD ? ORDERED: ??Gross Micro L3/2 ? Copies To: ??(Continued) ?? Ramon Bridges MD ?? [facility] ?? [address] [facility] [address] ?? [place] [address] ?? [phone] ----- ------- Signed (signature on file) Jose Painter MD 06/13/241121 ? ----- ------- ? END OF REPORT ? us Generic External Data Provider LAB CYTOLOGY ORDE RABNIKHIL Final Result [facility] [address] [place] [address] [phone] * BI Mammogram Diagnostic Tomosynthesis Right (07/31/2023 1:25 PM EDT) Anatomical Region Laterality Modality Breast Right Mammography 07/31/2023 1:25 PM EDT Narrative 07/31/2023 2:13 PM EDT ? [facility] ? [address] ?[place] [address] ? Mammography Report ? Signed ? Patient: Opal,Helinee ?MR#: [id number] ? : 1980 ?Acct:[id number] ? Age/Sex: 42 / F ?ADM Date: 07/31/23 ? Loc: HO.MAMMO ? Attending Dr: Dawna Casiano CNM ? Ordering Physician: Dawna Casiano CNM ?Results: 2Beni ?? gn Findings ? Date of Service: 07/31/23 ?Follow Up: 1 Year From Orig ?? inal Mammogram ? Procedure(s): MM tomosynthesis diagnostic RT ?? Accession Number(s): [id number] ? cc: Anna Jaquez MD; Dawna Casiano [...] 1409 ? DD/ 1325 ? TD/TT: ? Sports Bookmaker: ? Procedure Note Donotuseinterpreter, Image - 07/31/2023 [facility] [address] [place] [address] Mammography Report Signed Patient: Ana Joseph#: [id number] : 1980Acct:[id number] Age/Sex: 42 / FADM Date: 07/31/23 Loc: HO.MAMMO Attending Dr: Dawna Casiano CNM Ordering Physician: Dawna Casianoesults: 2Beni gn Findings Date of Service: 07/31/23Follow Up: 1 Year From Orig inal Mammogram Procedure(s): MM tomosynthesis diagnostic RT Accession Number(s): [id number] cc: Anna Jaquez MD; Dawna Casiano CNM [...] MD Signed By: <Electronically signed by Wallace Amanad MD in OV> 07/31/23 1409 DD/ 1325 TD/TT: Sports Bookmaker: [facility] External Provider IMG BI PROCEDURES Final Result * HM PAP/HPV (03/30/2023 1:41 PM EST) Historical Provider HEALTH MAINTENANCE Final Result * HIV AB/AG (12/18/2021 12:11 PM EDT) HIV AB/AG Nonreactive Nonreactive [facility] Comment: HIV-1 p24 Ag and/or [...] detection of this assay. ?? The Walker Marketing Systems Analyst HIV Ag/Ab Combo assay result and supplemental assay results should be interpreted in conjunction with the patient's clinical presentation, history and other laboratory results. ??If the results are inconsistent with clinical evidence, additional testing is suggested to confirm the result. Hepatitis B Core Antibody Nonreactive Nonreactive [facility] Hepatitis C Antibody Nonreactive Nonreactive [facility] Comment: Antibodies to HCV not detected; does not exclude early acute HCV infection. 12/18/2021 12:1 1 PM EDT us Dawna Haqueoney HISTORICAL/NON ORDERABLE LABS Fi nal Result Performing Organization Address [facility] Co de Phone Number [facility] [address] * HPV E6/E7 RFLX ANDREE 16 18/45 (12/16/2021 11:46 AM EDT) HPV 16 RNA TNP [facility] HPV 18/45 RNA TNP [facility] HPV E6 E7 ADD TNP [facility] HPV mRNA E6/E7 rflx Not Detected Not Detected [facility] Comment: Methodology: Technical Internship-Mediated Amplification This assay detects E6/E7 viral messenger RNA (mRNA) from 14 high-risk HPV types (16,18,31,33,35,39,45,51,52,56,58,59,66,68). Cervical sources are required for HPV testing. If a vaginal source from a patient who has had a total hysterectomy with removal of cervix was submitted, please contact the testing laboratory for alternative testing options. For additional information, please refer to http://education.InnomiNet/faq/KDZ573u3 (This link if provided for information/ educational purposes only.) THIS TEST WAS PERFORMED AT: [employer] [address] [place] [address],[address] [place], [place] ??[address] DYLON HUSAIN MD 12/16/2021 11:4 6 AM EDT us Dawna Casiano HISTORICAL/NON ORDERABLE LABS Fi nal Result Performing Organization Address [facility] Co de Phone Number [facility] [address] from Last 3 Months or Most Recently Relevant to Health Maintenance Insurance [facility] STANDARD [employer]ET[employer] MEDICARE REPLACEMENT Care Teams Warehouse Freight Handler Relationship Specialty Start Date End Date Anna Jaquez MD [address] [place] [address] PCP - General Family Medicine 01/08/18
--- OUTSIDE RECORDS SUMMARY | 2024-08-03 10:19 | XMS_ITS | Encounter Summary ---
Author Organization [employer] Address [address] [place] [address] 7t [place] [address] Care Team Providers Care Track Layer Name Role Phone Anna Jaquez MD Primary Care Provide r Reason for Visit * Reason Onset Date Comments Nurse Triage 10/20/2022 Encounter Details Date Type Department Care Team ([facility] st Contact Info) Description 10/20/2022 Telephone [facility] 230 [place], [place] [phone] Anna Jaquez MD 230 [place] [address] Nurse Triage Social History Tobacco Use Types [...] 10/20/2022 12:06 PM EDT Triage call with [facility] [place] [id number] Pt reports constant headaches for quite a while . Pt reports taking ibuprofen for these headaches . At time of call headache is mild and no blurry vision but, on occasion vision becomes blurred. Negfor fever or injury. Pt requests to be seen for tests to be done. Advised to come to [facility] today mavis seen by provider and Pt [...] accepted this outcome Please contact pt at [phone] Polish Speaker documented in this encounter Plan of Treatment Not on file documented as of this encounter Visit Diagnoses Not on filedocumented in this encounter Care Teams Track Layer Relationship Specialty Start Date End Date Anna Jaquez MD [address] [place] [address] PCP - General Family Medicine 01/08/18 documented as of this encounter
--- OUTSIDE RECORDS SUMMARY | 2024-08-03 10:19 | XMS_ITS | Clinical Summary ---
Author Organization [facility] Address [address] [place] [address] Care Team Providers Care Geodetic Engineer Name Role Phone Unavailable Primary Care Provider [...] Vaccine (2023-2 5 season) 2023 Influenza Vaccine (Season Ended) 2024 HIB Vaccines Aged Out No longer eligi [...] age to complete this topic Meningococcal B Vaccine Aged Out No l onger eligible based on patient's age to complete [...]
--- OUTSIDE RECORDS SUMMARY | 2024-08-03 10:19 | XMS_ITS | Encounter Summary ---
Author Organization [employer] Address [address] [facility] 7t [place] [address] Care Team Providers Care Chief Resource Officer Name Role Phone Anna Jaquez MD Primary Care Provide r Encounter Details Date Type Department Care Team ([facility] st Contact Info) Description 02/08/2024 Orders Only [facility] [address] [place] [address] ProviderMarshall MD Social History Tobacco Use Types [...] as of this encounter Care Teams Chief Resource Officer Relationship Specialty Start Date End Date Anna Jaquez MD [address] [place] [address] PCP - General Family Medicine 01/08/18 documented as of this encounter
== END 2024-08-03 11:47 | disposition home or self-care (01) ==
LOC: HO.HWSM 09:23
PROVIDERS: PCP Internal Medicine; Visit Provider Advanced Practice Midwife
DX: Z01.419 Encounter for gynecological examination (general) (routine) without abnormal findings (principal); R87.610 Atypical squamous cells of undetermined significance on cytologic smear of cervix (ASC-US); N88.9 Noninflammatory disorder of cervix uteri, unspecified; N90.9 Noninflammatory disorder of vulva and perineum, unspecified; Z20.2 Contact with and (suspected) exposure to infections with a predominantly sexual mode of transmission; A63.0 Anogenital (venereal) warts
CPT/HCPCS: 99396; 99459

== ENCOUNTER 2024-08-03 09:23 | Outpatient (REF) | payer MEDICARE, SELFPAY ==
--- OUTSIDE RECORDS SUMMARY | 2024-08-03 15:24 | XMS_ITS | Encounter Summary ---
Author Organization [employer] Address [address] [place] [address] 7t [place] [address] Care Team Providers Care Head Mechanic Name Role Phone Anna Jaquez MD Primary Care Provide r Reason for Visit * Reason Onset Date Comments Nurse Triage 10/20/2022 Encounter Details Date Type Department Care Team ([facility] st Contact Info) Description 10/20/2022 Telephone [facility] 230 [place], [place] [phone] Anna Jaquez MD 230 [place] [address] Nurse Triage Social History Tobacco Use Types [...] 10/20/2022 12:06 PM EDT Triage call with [place] Leak Inspector [place] [id number] Pt reports constant headaches for quite a while . Pt reports taking ibuprofen for these headaches . At time of call headache is mild and no blurry vision but, on occasion vision becomes blurred. Negfor fever or injury. Pt requests to be seen for tests to be done. Advised to come to [facility] today mavis seen by provider and [...] accepted this outcome Please contact pt at [phone] Georgian Speaker documented in this encounter Plan of Treatment Not on file documented as of this encounter Visit Diagnoses Not on filedocumented in this encounter Care Teams Head Mechanic Relationship Specialty Start Date End Date Anna Jaquez MD [address] [place] [phone] PCP - General Family Medicine 01/08/18 documented as of this encounter
--- OUTSIDE RECORDS SUMMARY | 2024-08-03 15:24 | XMS_ITS | Encounter Summary ---
Author Organization [employer] Address [address] [facility] 7t [place] [address] Care Team Providers Care Automatic Vulcanizing Lead Operator Name Role Phone Anna Jaquez MD Primary Care Provide r Reason for Visit * Reason Comments Med Refill Encounter Details Date Type Department Care Team (Late st Contact Info) Description 11/11/2023 Refill [facility] MEDICINE 230 [place], [place] [phone] Anna Jaquez MD 230 [place] [address] Mild intermittent asthma without complication Social History [...] documented as of this encounter Care Teams Automatic Vulcanizing Lead Operator Relationship Specialty Start Date End Date Anna Jaquez MD [address] [place] [phone] PCP - General Family Medicine 01/08/18 documented as of this encounter
--- OUTSIDE RECORDS SUMMARY | 2024-08-03 15:24 | XMS_ITS | Encounter Summary ---
Author Organization [employer] Address [address] [place] [address] 7 [place] [address] Care Team Providers Care Mortgage Lender Name Role Phone Anna Jaquez MD Primary Care Provide r Reason for Visit * Reason Comments Med Refill Encounter Details Date Type Department Care Team (Late st Contact Info) Description 07/22/2023 Refill [facility] MEDICINE 230 [place], [place] [phone] Anna Jaquez MD 230 [place], [place] [phone] Migraine without status migrainosus, not intractable, unspecified [...] documented as of this encounter Care Teams Mortgage Lender Relationship Specialty Start Date End Date Anna Jaquez MD 230 [place] [address] PCP - General Family Medicine 01/08/18 documented as of this encounter
--- OUTSIDE RECORDS SUMMARY | 2024-08-03 15:24 | XMS_ITS | Encounter Summary ---
Author Organization [employer] Address 75 [facility] 7t [place] [address] Care Team Providers Care Solid Waste Collection Worker Name Role Phone Anna Jaquez MD Primary Care Provide r Encounter Details Date Type Department Care Team ([facility] st Contact Info) Description 02/08/2024 Orders Only [facility] MEDICINE 230 [place] [address] ProviderMarshall MD Social History Tobacco Use Types [...] documented as of this encounter Care Teams Solid Waste Collection Worker Relationship Specialty Start Date End Date Anna Jaquez MD [address] [place] [address] PCP - General Family Medicine 01/08/18 documented as of this encounter
--- OUTSIDE RECORDS SUMMARY | 2024-08-03 15:24 | XMS_ITS | Clinical Summary ---
Author Organization [facility] Address [address] [place] [address] Care Team Providers Care Machine Made Shoe Unit Worker Name Role Phone Unavailable Primary Care Provider [...]
--- OUTSIDE RECORDS SUMMARY | 2024-08-03 15:24 | XMS_ITS | Clinical Summary ---
Author Organization [employer] Address 75 [facility] 7t [place] [address] Care Team Providers Care Registered Nurse Hh Case Manager Name Role Phone Anna Jaquez MD Primary [...] (04/16/2023): ?? Pap: 12/16/21 NILM, HPV neg ([facility] CNM) ?? Mammo: reported hx of breast biopsy & mammo at [facility]. Records requested ?? Colonoscopy: routine screening starting at 45 y/o ?? Last PE: 04/15/23 Assessment & Plan (04/16/2023 4:43 PM EST): -Routine labwork ordered, declined STI since no new partners since last sexual encounter Chloanikiaa 12/04/2017 04/15/2023 Tibia kiet 02/06/2012 04/15/2023 Assessment & Plan (04/16/2023 11:12 AM EST): ?? Following with [facility] Ortho Encounters Date Type Department Care Team Description 06/08/2024 Orders Only GENERIC EXTERNAL DATA DEPARTMENT Provider, Generic External Data 05/06/2024 Telephone [facility] MEDICINE [address] [place] [address] [phone] Anna Jaquez MD No Show from Last [...] the past 12 months, has t he [employer], gas, oil or water company threatened to [...] PM EST 06/09/2024 8:19 AM EST Zara [facility] - 06/13/2024 11:22 AM EST ----- ------- Name: Nae Joseph ? Age/Sex: 43/F ? : 1980 Unit#: [id number] ?? Attend Dr: Ramon Bridges MD ?Re06/08/24 ?Status: DEP REF ? Location: HO.LNP ?Disch: ? ----- ------- SPEC : [id number] ?RECD: 06/09/24 ? STATUS: ??SOUT ? REQ NUM: [id number] ? JEANETTE: 06/08/24 ? SUBM DR: Ramon [...] Copies To: ?? Anna Jaquez MD ?? [facility] ?? [address] [facility] ?? [place] [address] ?? [phone] ? CONTINUED ON NEXT PAGE ----- ------- Name: Nae Joseph ? Age/Sex: 43/F ? : 1980 Unit#: [id number] ?? Attend Dr: Ramon Bridges MD ?Re06/08/24 ?Status: DEP REF ? Location: HO.LNP ?Disch: ? ----- ------- SPEC : [id number] ?RECD: 06/09/24 ? STATUS: ??SOUT ? REQ NUM: [id number] ? JEANETTE: 06/08/24-3873 ? SUBM DR: Ramon Bridges MD ? ENTERED: ??06/09/24-832 ?SP TYPE: Surgical ? OTHR DR: Anna Jaquez MD ? ORDERED: ??Gross Micro L3/2 ? Copies To: ??(Continued) ?? Ramon Bridges MD ?? [facility] Women's Services ?? [address] [facility] [address] ?? [place] [address] ?? [phone] ----- ------- Signed (signature on file) Jose Painter MD 06/13/241121 ? ----- ------- ? END OF REPORT ? us Generic External Data Provider LAB CYTOLOGY ORDE RABNIKHIL Final Result [facility] [address] [place] [address] [phone] * BI Mammogram Diagnostic Tomosynthesis Right (07/31/2023 1:25 PM EDT) Anatomical Region Laterality Modality Breast Right Mammography 07/31/2023 1:25 PM EDT Narrative 07/31/2023 2:13 PM EDT ? [facility] ? [address] ?[place] [address] ? Mammography Report ? Signed ? Patient: Opal,Helinee ?MR#: [id number] ? : 1980 ?Acct:[id number] ? Age/Sex: 42 / F ?ADM Date: 07/31/23 ? Loc: HO.MAMMO ? Attending Dr: Dawna Casiano CNM ? Ordering Physician: Dawna Casiano CNM ?Results: 2Beni ?? gn Findings ? Date of Service: 07/31/23 ?Follow Up: 1 Year From Orig ?? inal Mammogram ? Procedure(s): MM tomosynthesis diagnostic RT ?? Accession Number(s): [id number] ? cc: Anna Jaquez MD; Dawna Casiano [...] 1409 ? DD/ 1325 ? TD/TT: ? Coastal/Harbor Defense Officer: ? Procedure Note Donotuseinterpreter, Image - 07/31/2023 [facility] [address] [place] [address] Mammography Report Signed Patient: Ana Joseph#: [id number] : 1980Acct:[id number] Age/Sex: 42 / FADM Date: 07/31/23 Loc: HO.MAMMO Attending Dr: Dawna Casiano CNM Ordering Physician: Dawna Casianoesults: 2Beni gn Findings Date of Service: 07/31/23Follow Up: 1 Year From Orig inal Mammogram Procedure(s): MM tomosynthesis diagnostic RT Accession Number(s): [id number] cc: Anna Jaquez MD; Dawna Casiano CNM [...] in OV> 07/31/23 1409 DD/ 1325 TD/TT: Coastal/Harbor Defense Officer: [facility] External Provider IMG BI PROCEDURES Final Result * HM PAP/HPV (03/30/2023 1:41 PM EST) Historical Provider HEALTH MAINTENANCE Final Result * HIV AB/AG (12/18/2021 12:11 PM EDT) HIV AB/AG Nonreactive Nonreactive [facility] Comment: HIV-1 p24 Ag and/or [...] detection of this assay. ?? The Walker Inventory Representative HIV Ag/Ab Combo assay result and supplemental assay results should be interpreted in conjunction with the patient's clinical presentation, history and other laboratory results. ??If the results are inconsistent with clinical evidence, additional testing is suggested to confirm the result. Hepatitis B Core Antibody Nonreactive Nonreactive [facility] Hepatitis C Antibody Nonreactive Nonreactive [facility] Comment: Antibodies to HCV not detected; does not exclude early acute HCV infection. 12/18/2021 12:1 1 PM EDT us Dawna Haqueoney HISTORICAL/NON ORDERABLE LABS Fi nal Result Performing Organization Address [facility] Co de Phone Number [facility] [address] * HPV E6/E7 RFLX ANDREE 16 18/45 (12/16/2021 11:46 AM EDT) HPV 16 RNA TNP [facility] HPV 18/45 RNA TNP [facility] HPV E6 E7 ADD TNP [facility] HPV mRNA E6/E7 rflx Not Detected Not Detected [facility] Comment: Methodology: University President-Mediated Amplification This assay detects E6/E7 viral messenger RNA (mRNA) from 14 high-risk HPV types (16,18,31,33,35,39,45,51,52,56,58,59,66,68). Cervical sources are required for HPV testing. If a vaginal source from a patient who has had a total hysterectomy with removal of cervix was submitted, please contact the testing laboratory for alternative testing options. For additional information, please refer to http://education.[employer]/faq/CRQ746t4 (This link if provided for information/ educational purposes only.) THIS TEST WAS PERFORMED AT: [employer] [address] [place] [address],[address] [place], [place] ??[address] DYLON HUSAIN MD 12/16/2021 11:4 6 AM EDT us Dawna Casiano HISTORICAL/NON ORDERABLE LABS Fi nal Result Performing Organization Address [facility] Co de Phone Number [facility] [address] from Last 3 Months or Most Recently Relevant to Health Maintenance Insurance [facility] STANDARD [employer]ET[employer] MEDICARE REPLACEMENT Care Teams Registered Nurse Hh Case Manager Relationship Specialty Start Date End Date Anna Jaquez MD [address] [place] [phone] PCP - General Family Medicine 01/08/18
== END 2024-08-03 09:24 | disposition home or self-care (01) ==
LOC: HO.LAB 09:23
PROVIDERS: PCP Internal Medicine; Visit Provider Advanced Practice Midwife
DX: Z13.89 Encounter for screening for other disorder (principal)

== ENCOUNTER 2024-08-03 10:18 | Outpatient (REF) | payer MEDICARE, SELFPAY ==
[2024-08-03 11:57] LABS: HBsAGNum1 0.26 S/CO (0.00-0.99); HIV AB/AG Nonreactive (Nonreactive); HIV Num 1 0.05 S/CO (0.00-0.99); Hepatitis B Surface Antigen Negative (Negative); Syphilis Screen Nonreactive (Nonreactive); ~HepC Num1 0.13 S/CO (0.00-0.79); ~Hepatitis C Antibody Nonreactive (Nonreactive)
--- OUTSIDE RECORDS SUMMARY | 2024-08-03 11:59 | XMS_ITS | Encounter Summary ---
Author Organization [employer] Address [address] [facility] 7t [place] [address] Care Team Providers Care Bottom Cementer Name Role Phone Anna Jaquez MD Primary Care Provide r Reason for Visit * Reason Comments Med Refill Encounter Details Date Type Department Care Team (Late st Contact Info) Description 11/11/2023 Refill [facility] 230 [place], [place] [phone] Anna Jaquez MD 230 [place] [address] Mild intermittent asthma without complication Social History [...] documented as of this encounter Care Teams Bottom Cementer Relationship Specialty Start Date End Date Anna Jaquez MD [address] [place] [address] PCP - General Family Medicine 01/08/18 documented as of this encounter
--- OUTSIDE RECORDS SUMMARY | 2024-08-03 11:59 | XMS_ITS | Encounter Summary ---
Author Organization [employer] Address [address] [place] [address] 7t [place] [address] Care Team Providers Care Wool Washing Machine Operator Name Role Phone Anna Jaquez MD Primary Care Provide r Reason for Visit * Reason Onset Date Comments Nurse Triage 10/20/2022 Encounter Details Date Type Department Care Team ([facility] st Contact Info) Description 10/20/[address] [facility] 230 [place], [place] [phone] Anna Jaquez MD 230 [place] [address] Nurse Triage Social History Tobacco Use Types [...] 10/20/2022 12:06 PM EDT Triage call with [place] [id number] Pt reports constant headaches for quite a while . Pt reports taking ibuprofen for these headaches . At time of call headache is mild and no blurry vision but, on occasion vision becomes blurred. Negfor fever or injury. Pt requests to be seen for tests to be done. Advised to come to [facility] today mavis seen by provider and Pt [...] accepted this outcome Please contact pt at [phone] Uzbek Speaker documented in this encounter Plan of Treatment Not on file documented as of this encounter Visit Diagnoses Not on filedocumented in this encounter Care Teams Wool Washing Machine Operator Relationship Specialty Start Date End Date Anna Jaquez MD [address] [place] [address] PCP - General Family Medicine 01/08/18 documented as of this encounter
--- OUTSIDE RECORDS SUMMARY | 2024-08-03 11:59 | XMS_ITS | Encounter Summary ---
Author Organization [employer] Address [address] [facility] 7t [place] [address] Care Team Providers Care Team Supervisor Name Role Phone Anna Jaquez MD Primary Care Provide r Encounter Details Date Type Department Care Team ([facility] st Contact Info) Description 02/08/2024 Orders Only [facility] 230 [place] [address] ProviderMarshall MD Social History Tobacco Use Types [...] documented as of this encounter Care Teams Team Supervisor Relationship Specialty Start Date End Date Anna Jaquez MD [address] [place] [address] PCP - General Family Medicine 01/08/18 documented as of this encounter
--- OUTSIDE RECORDS SUMMARY | 2024-08-03 11:59 | XMS_ITS | Clinical Summary ---
Author Organization [employer] Address [address] [facility] 7t [place] [address] Care Team Providers Care Nascar Pit Crew Person Name Role Phone Anna Jaquez MD Primary [...] (04/16/2023): ?? Pap: 12/16/21 NILM, HPV neg ([facility] CNM) ?? Mammo: reported hx of breast biopsy & mammo at [facility]. Records requested ?? Colonoscopy: routine screening starting at 43 y/o ?? Last PE: 04/15/23 Assessment & Plan (04/16/2023 4:43 PM EST): -Routine labwork ordered, declined STI since no new partners since last sexual encounter Chloanikiaa 12/04/2017 04/15/2023 Tibia kiet 02/06/2012 04/15/2023 Assessment & Plan (04/16/2023 11:12 AM EST): ?? Following with [facility] Ortho Encounters Date Type Department Care Team Description 06/08/2024 Orders Only GENERIC EXTERNAL DATA DEPARTMENT Provider, Generic External Data 05/06/2024 Telephone [facility] MEDICINE [address] [place] [address] [phone] Anna Jaquez MD No Show from Last [...] the past 12 months, has t he [employer], gas, oil or water company threatened to [...] PM EST 06/09/2024 8:19 AM EST [facility] - 06/13/2024 11:22 AM EST ----- ------- Name: Nae Joseph ? Age/Sex: 43/F ? : 1980 Unit#: [id number] ?? Attend Dr: Ramon Bridges MD ?Re06/08/24 ?Status: DEP REF ? Location: HO.LNP ?Disch: ? ----- ------- SPEC : [id number] ?RECD: 06/09/24 ? STATUS: ??SOUT ? REQ NUM: [id number] ? JEANETTE: 06/08/24 ? SUBM DR: Ramon [...] Copies To: ?? Anna Jaquez MD ?? [facility] ?? [address] [facility] ?? [place] [address] ?? [phone] ? CONTINUED ON NEXT PAGE ----- ------- Name: Nae Joseph ? Age/Sex: 43/F ? : 1980 Unit#: [id number] ?? Attend Dr: Ramon Bridges MD ?Re06/08/24 ?Status: DEP REF ? Location: HO.LNP ?Disch: ? ----- ------- SPEC : [id number] ?RECD: 06/09/24 ? STATUS: ??SOUT ? REQ NUM: [id number] ? JEANETTE: 06/08/24-2748 ? SUBM DR: Ramon Bridges MD ? ENTERED: ??06/09/24-832 ?SP TYPE: Surgical ? OTHR DR: Anna Jaquez MD ? ORDERED: ??Gross Micro L3/2 ? Copies To: ??(Continued) ?? Ramon Bridges MD ?? [facility] ?? [address] [facility] [address] ?? [place] [address] ?? [phone] ----- ------- Signed (signature on file) Jose Painter MD 06/13/241121 ? ----- ------- ? END OF REPORT ? us Generic External Data Provider LAB CYTOLOGY ORDE RABNIKHIL Final Result [facility] [address] [place] [phone] * BI Mammogram Diagnostic Tomosynthesis Right (07/31/2023 1:25 PM EDT) Anatomical Region Laterality Modality Breast Right Mammography 07/31/2023 1:25 PM EDT Narrative 07/31/2023 2:13 PM EDT ? [facility] ? [address] ?[place] [address] ? Mammography Report ? Signed ? Patient: Opal,Helinee ?MR#: [id number] ? : 1980 ?Acct:[id number] ? Age/Sex: 42 / F ?ADM Date: 07/31/23 ? Loc: HO.MAMMO ? Attending Dr: Dawna Casiano CNM ? Ordering Physician: Dawna Casiano CNM ?Results: 2Beni ?? gn Findings ? Date of Service: 07/31/23 ?Follow Up: 1 Year From Orig ?? inal Mammogram ? Procedure(s): MM tomosynthesis diagnostic RT ?? Accession Number(s): [id number] ? cc: Anna Jaquez MD; Dawna Casiano [...] 1409 ? DD/ 1325 ? TD/TT: ? Wildlife Policy Professional: ? Procedure Note Donotuseinterpreter, Image - 07/31/2023 [facility] [address] [place] [address] Mammography Report Signed Patient: Ana Joseph#: [id number] : 1980Acct:[id number] Age/Sex: 42 / FADM Date: 07/31/23 Loc: HO.MAMMO Attending Dr: Dawna Casiano CNM Ordering Physician: Dawna Casianoesults: 2Beni gn Findings Date of Service: 07/31/23Follow Up: 1 Year From Orig inal Mammogram Procedure(s): MM tomosynthesis diagnostic RT Accession Number(s): [id number] cc: Anna Jaquez MD; Dawna Casiano CNM [...] by Wallace Amanda MD in OV> 07/31/23 1409 DD/ 1325 TD/TT: Wildlife Policy Professional: [facility] External Provider IMG BI PROCEDURES Final Result * HM PAP/HPV (03/30/2023 1:41 PM EST) Historical Provider HEALTH MAINTENANCE Final Result * HIV AB/AG (12/18/2021 12:11 PM EDT) HIV AB/AG Nonreactive Nonreactive [facility] Comment: HIV-1 p24 Ag and/or [...] detection of this assay. ?? The Walker Train Controller HIV Ag/Ab Combo assay result and supplemental assay results should be interpreted in conjunction with the patient's clinical presentation, history and other laboratory results. ??If the results are inconsistent with clinical evidence, additional testing is suggested to confirm the result. Hepatitis B Core Antibody Nonreactive Nonreactive [facility] Hepatitis C Antibody Nonreactive Nonreactive [facility] Comment: Antibodies to HCV not detected; does not exclude early acute HCV infection. 12/18/2021 12:1 1 PM EDT us Dawna Haqueoney HISTORICAL/NON ORDERABLE LABS Fi nal Result Performing Organization Address [facility] Co de Phone Number [facility] [address] * HPV E6/E7 RFLX ANDREE 16 18/45 (12/16/2021 11:46 AM EDT) HPV 16 RNA TNP [facility] HPV 18/45 RNA TNP [facility] HPV E6 E7 ADD TNP [facility] HPV mRNA E6/E7 rflx Not Detected Not Detected [facility] Comment: Methodology: Butcher Scullion-Mediated Amplification This assay detects E6/E7 viral messenger RNA (mRNA) from 14 high-risk HPV types (16,18,31,33,35,39,45,51,52,56,58,59,66,68). Cervical sources are required for HPV testing. If a vaginal source from a patient who has had a total hysterectomy with removal of cervix was submitted, please contact the testing laboratory for alternative testing options. For additional information, please refer to http://education.FutureAdvisor/faq/VYD549i6 (This link if provided for information/ educational purposes only.) THIS TEST WAS PERFORMED AT: [facility] [address] [place] [address],[address] [place], [place] ??[address] DYLON HUSAIN MD 12/16/2021 11:4 6 AM EDT us Dawna Casiano HISTORICAL/NON ORDERABLE LABS Fi nal Result Performing Organization Address [facility] Co de Phone Number [facility] [address] from Last 3 Months or Most Recently Relevant to Health Maintenance Insurance [facility] STANDARD AETNA MEDICARE REPLACEMENT Care Teams Nascar Pit Crew Person Relationship Specialty Start Date End Date Anna Jaquez MD [address] [place] [address] PCP - General Family Medicine 01/08/18
--- OUTSIDE RECORDS SUMMARY | 2024-08-03 11:59 | XMS_ITS | Clinical Summary ---
Author Organization [facility] Address [address] [place] [address] Care Team Providers Care Pharmacy Director Name Role Phone Unavailable Primary Care Provider [...]
--- OUTSIDE RECORDS SUMMARY | 2024-08-03 11:59 | XMS_ITS | Encounter Summary ---
Author Organization [employer] Address [address] [place] [address] 7 [place] [address] Care Team Providers Care Liaison Planner Name Role Phone Anna Jaquez MD Primary Care Provide r Reason for Visit * Reason Comments Med Refill Encounter Details Date Type Department Care Team (Late st Contact Info) Description 07/22/2023 Refill [facility] [address] [place], [place] [phone] Anna Jaquez MD 230 [place], [place] [phone] Migraine without status migrainosus, not intractable, unspecified [...] documented as of this encounter Care Teams Liaison Planner Relationship Specialty Start Date End Date Anna Jaquez MD 230 [place] [address] PCP - General Family Medicine 01/08/18 documented as of this encounter
== END 2024-08-03 10:19 | disposition home or self-care (01) ==
LOC: HO.HHCL 10:18
PROVIDERS: Visit Provider Advanced Practice Midwife
DX: R87.610 Atypical squamous cells of undetermined significance on cytologic smear of cervix (ASC-US) (principal); N88.9 Noninflammatory disorder of cervix uteri, unspecified; N90.9 Noninflammatory disorder of vulva and perineum, unspecified; Z20.2 Contact with and (suspected) exposure to infections with a predominantly sexual mode of transmission; Z01.419 Encounter for gynecological examination (general) (routine) without abnormal findings
CPT/HCPCS: 36415; 86780; 86803; 87340; 87389

== ENCOUNTER 2024-08-03 12:54 | Outpatient (REF) | payer MEDICARE, SELFPAY ==
[2024-08-04 08:59] LABS: Bacterial Vaginosis PCR POSITIVE (Negative); Candida Group PCR NOT DETECTED (Not Detect); Candida glab krusei PCR NOT DETECTED (Not Detect); Trichomonas vaginalis PCR NOT DETECTED (Not Detect)
[2024-08-04 09:31] LABS: CT PCR NOT DETECTED (Not Detect.); NG PCR NOT DETECTED (Not Detect.)
[2024-08-09 10:20] LABS: HPV Genotype 16 Negative (Negative); HPV Genotype 18 Negative (Negative); HPV High Risk Negative (Negative)
== END 2024-08-03 12:55 | disposition home or self-care (01) ==
LOC: HO.LNP 12:54
PROVIDERS: Visit Provider Advanced Practice Midwife
DX: Z00.00 Encounter for general adult medical examination without abnormal findings (principal); Z20.2 Contact with and (suspected) exposure to infections with a predominantly sexual mode of transmission; N89.8 Other specified noninflammatory disorders of vagina
CPT/HCPCS: 36415; 81515; 86780; 86803; 87340; 87389; 87491; 87591; 87626; 88175; 99396; 99459

== ENCOUNTER 2024-08-11 13:44 | Outpatient (REF) | payer MEDICARE, SELFPAY ==
--- OUTSIDE RECORDS SUMMARY | 2024-08-11 16:06 | XMS_ITS | Encounter Summary ---
Author Organization [employer] Address [address] [place] [address] 7t [place] [address] Care Team Providers Care Store Planner Name Role Phone Anna Jaquez MD Primary Care Provide r Reason for Visit * Reason Onset Date Comments Nurse Triage 10/20/2022 Encounter Details Date Type Department Care Team ([facility] st Contact Info) Description 10/20/2022 Telephone [facility] MEDICINE 230 [place], [place] [phone] Anna Jaquez MD 230 [place] [address] Nurse Triage Social History Tobacco Use Types [...] 10/20/2022 12:06 PM EDT Triage call with [place] [facility] [place] [id number] Pt reports constant headaches for quite a while . Pt reports taking ibuprofen for these headaches . At time of call headache is mild and no blurry vision but, on occasion vision becomes blurred. Negfor fever or injury. Pt requests to be seen for tests to be done. Advised to come to [facility] today mavis seen by provider and [...] accepted this outcome Please contact pt at [phone] Mongolian Speaker documented in this encounter Plan of Treatment Not on file documented as of this encounter Visit Diagnoses Not on filedocumented in this encounter Care Teams Store Planner Relationship Specialty Start Date End Date Anna Jaquez MD [address] [place] [address] PCP - General Family Medicine 01/08/18 documented as of this encounter
--- OUTSIDE RECORDS SUMMARY | 2024-08-11 16:06 | XMS_ITS | Clinical Summary ---
Author Organization [employer] Address 75 [facility] 7t [place] [address] Care Team Providers Care Hoop Punch And Coiler Operator Name Role Phone Anna Jaquez MD Primary Care Provide r Allergies No known active allergies Medications ibuprofen 800 MG tablet TAKE 1 TABLET BY MOUTH THREE TIMES DAILY WITH FOOD NEEDED 06/11/19 23 Active naproxen (Naprosyn) 500 MG tabletIndication s:Pain TAKE 1 TABLET BY MOUTH TWICE DAILY EVERY 12 HOURS NEEDED FOR PAIN 03/27/20 23 Active SUMAtriptan (Imitrex) 25 MG tabletIndication s:Migraine without aura and without status migrainosus, not intractable Take 1 tablet (25 mg) by mouth 1 (one) time if needed for migraine for up to 36 doses. May repeat dose once in 2 hours if no relief. Do not exceed 2 doses in 24 hours. 9 tablet 3 04/27/19 25 Active amitriptyline (Elavil) 10 MG tabletIndication s:Migraine without status migrainosus, not intractable, unspecified migraine type Take 1 tablet (10 mg) by mouth at bedtime. 30 tablet 3 04/27/19 25 025 Active albuterol 108 (90 Base) MCG/ACT inhalerIndicatio ns:Mild intermittent asthma without complication INHALE 2 PUFFS BY MOUTH EVERY 6 HOURS NEEDED FOR WHEEZING 18 g 1 08/06/19 25 Active albuterol 108 (90 Base) MCG/ACT inhalerIndicatio ns:Mild intermittent asthma without complication Inhale 2 puffs every 6 (six) hours if needed for wheezing. 18 g 1 01/08 025 Discontinued(Re order (will not trigger notification to Pharmacy)) Active Problems Problem Noted Date Diagnosed Date [...] (04/16/2023): ?? Pap: 12/16/21 NILM, HPV neg ([facility]) ?? Mammo: reported hx of breast biopsy & mammo at [facility]. Records requested ?? Colonoscopy: routine screening starting at 45 y/o ?? Last PE: 04/15/23 Assessment & Plan (04/16/2023 4:43 PM EST): -Routine labwork ordered, declined STI since no new partners since last sexual encounter Chloasma 12/04/2017 04/15/2023 Tibia vara 02/06/2012 04/15/2023 Assessment & Plan (04/16/2023 11:12 AM EST): ?? Following with [facility] Ortho Encounters Date Type Department Care Team Description 08/04/2024 Refill [facility] MEDICINE [address] [place] [phone] Anna Jaquez MD Mild intermittent asthma without complication 06/08/2024 Orders Only GENERIC EXTERNAL DATA DEPARTMENT Provider, Generic External Data from Last 3 Months Immunizations Name Administration [...] 2:48 PM EST 06/09/2024 8:19 AM EST [facility] - 06/13/2024 11:22 AM EST ----- ------- Name: Nae Joseph ? Age/Sex: 43/F ? : 1980 Unit#: [id number] ?? Attend Dr: Ramon Bridges MD ?Re06/08/24 ?Status: DEP REF ? Location: HO.LNP ?Disch: ? ----- ------- SPEC : [id number] ?RECD: 06/09/24 ? STATUS: ??SOUT ? REQ NUM: [id number] ? JEANETTE: 06/08/24 ? SUBM DR: Ramon [...] submitted in toto in a cassette labeled B. CEDS Copies To: ?? Anna Jaquez MD ?? [facility] ?? [address] [facility] ?? [place] [address] ?? [phone] ? CONTINUED ON NEXT PAGE ----- ------- Name: Nae Joseph ? Age/Sex: 43/F ? : 1980 Unit#: [id number] ?? Attend Dr: Ramon Bridges MD ?Re06/08/24 ?Status: DEP REF ? Location: HO.LNP ?Disch: ? ----- ------- SPEC : [id number] ?RECD: 06/09/24 ? STATUS: ??SOUT ? REQ NUM: [id number] ? JEANETTE: 06/08/24-1447 ? SUBM DR: Ramon Bridges MD ? ENTERED: ??06/09/24 ?SP TYPE: Surgical ? OTHR DR: Anna Jaquez MD ? ORDERED: ??Gross Micro L3/2 ? Copies To: ??(Continued) ?? Ramon Bridgse MD ?? [facility] Women's Services ?? [address] [facility] [address] ?? [place] [address] ?? [phone] ----- ------- Signed (signature on file) Jose Painter MD 06/13/24 1122 ? ----- ------- ? END OF REPORT ? us Generic External Data Provider LAB CYTOLOGY DANNYE JEREMIAS Final Result [facility] [address] [place] [address] [phone] * BI Mammogram Diagnostic Tomosynthesis Right (07/31/2023 1:25 PM EDT) Anatomical Region Laterality Modality Breast Right Mammography 07/31/2023 1:25 PM EDT Narrative 07/31/2023 2:13 PM EDT ? [facility] ? [address] ?[place] [address] ? Mammography Report ? Signed ? Patient: Nae Joseph ?MR#: [id number] ? : 1980 ?Acct:[id number] ? Age/Sex: 42 / F ?ADM Date: 07/31/23 ? Loc: HO.MAMMO ? Attending Dr: Dawna Casiano CNM ? Ordering Physician: Dawna Casiano CNM ?Results: 2Beni ?? gn Findings ? Date of Service: 07/31/23 ?Follow Up: 1 Year From Orig ?? inal Mammogram ? Procedure(s): MM tomosynthesis diagnostic RT ?? Accession Number(s): [id number] ? cc: Anna Jaquez MD; Dawna Casiano [...] 1409 ? DD/ 1325 ? TD/TT: ? Power Wheelchair Mechanic: ? Procedure Note Dondeeter, Image - 07/31/2023 [facility] [address] [place] [address] Mammography Report Signed Patient: Ana Joseph#: [id number] : 1980Acct:[id number] Age/Sex: 42 / FADM Date: 07/31/23 Loc: HO.MAMMO Attending Dr: Dawna Casiano CNM Ordering Physician: Dawna Casianoesults: 2Beni gn Findings Date of Service: 07/31/23Follow Up: 1 Year From Orig inal Mammogram Procedure(s): MM tomosynthesis diagnostic RT Accession Number(s): [id number] cc: Anna Jaquez MD; Dawna Casiano CNM [...] in OV> 07/31/23 1409 DD/ 1325 TD/TT: Power Wheelchair Mechanic: [facility] External Provider IMG BI PROCEDURES Final Result * HM PAP/HPV (03/30/2023 1:41 PM EST) Historical Provider HEALTH MAINTENANCE Final Result * HIV AB/AG (12/18/2021 12:11 PM EDT) HIV AB/AG Nonreactive Nonreactive [facility] [...] detection of this assay. ?? The Walker Yarn Polishing Machine Operator HIV Ag/Ab Combo assay result and supplemental assay results should be interpreted in conjunction with the patient's clinical presentation, history and other laboratory results. ??If the results are inconsistent with clinical evidence, additional testing is suggested to confirm the result. Hepatitis B Core Antibody Nonreactive Nonreactive [facility] Hepatitis C Antibody Nonreactive Nonreactive [facility] Comment: Antibodies to HCV not detected; does not exclude early acute HCV infection. 12/18/2021 12:1 1 PM EDT us Dawna Casiano HISTORICAL/NON ORDERABLE LABS Fi nal Result Performing Organization Address [facility] Co de Phone Number [facility] [address] * HPV E6/E7 RFLX ANDREE 16 18/45 (12/16/2021 11:46 AM EDT) HPV 16 RNA TNP [facility] HPV 18/45 RNA TNP [facility] HPV E6 E7 ADD TNP [facility] HPV mRNA E6/E7 rflx Not Detected Not Detected [facility] Comment: Methodology: Commercial Kitchen Service Technician-Mediated Amplification This assay detects E6/E7 viral messenger RNA (mRNA) from 14 high-risk HPV types (16,18,31,33,35,39,45,51,52,56,58,59,66,68). Cervical sources are required for HPV testing. If a vaginal source from a patient who has had a total hysterectomy with removal of cervix was submitted, please contact the testing laboratory for alternative testing options. For additional information, please refer to http://education.[employer]/faq/UGI215l5 (This link if provided for information/ educational purposes only.) THIS TEST WAS PERFORMED AT: [employer] [address] [place] [address],[address] [place], [place] ??[address] DYLON HUSAIN MD 12/16/2021 11:4 6 AM EDT us Dawna Haqueoney HISTORICAL/NON ORDERABLE LABS Fi nal Result Performing Organization Address [facility]/ZIP Co de Phone Number [facility] [address] from Last 3 Months or Most Recently Relevant to Health Maintenance Insurance [facility] STANDARD AETNA MEDICARE REPLACEMENT Care Teams Hoop Punch And Coiler Operator Relationship Specialty Start Date End Date Anna Jaquez MD [address] [place] [address] PCP - General Family Medicine 01/08/18
--- OUTSIDE RECORDS SUMMARY | 2024-08-11 16:06 | XMS_ITS | Encounter Summary ---
Author Organization [employer] Address 75 [facility] 7t [place] [address] Care Team Providers Care Pattern And Chain Maker Name Role Phone Anna Jaquez MD Primary Care Provide r Encounter Details Date Type Department Care Team ([facility] st Contact Info) Description 02/08/2024 Orders Only [facility] MEDICINE 230 [place] [address] ProviderMarshall MD Social History Tobacco Use Types [...] documented as of this encounter Care Teams Pattern And Chain Maker Relationship Specialty Start Date End Date Anna Jaquez MD [address] [place] [address] PCP - General Family Medicine 01/08/18 documented as of this encounter
--- OUTSIDE RECORDS SUMMARY | 2024-08-11 16:06 | XMS_ITS | Encounter Summary ---
Author Organization [employer] Address 75 [facility] 7t [place] [address] Care Team Providers Care Manager Respiratory Name Role Phone Anna Jaquez MD Primary Care Provide r Reason for Visit * Reason Comments Med Refill Encounter Details Date Type Department Care Team (Late st Contact Info) Description 11/11/2023 Refill [facility] MEDICINE 230 [place], [place] [phone] Anna Jaquez MD 230 [place] [address] Mild intermittent asthma without complication Social History [...] as of this encounter Care Teams Manager Respiratory Relationship Specialty Start Date End Date Anna Jaquez MD [address] [place] [address] PCP - General Family Medicine 01/08/18 documented as of this encounter
--- OUTSIDE RECORDS SUMMARY | 2024-08-11 16:06 | XMS_ITS | Clinical Summary ---
Author Organization [facility] Address [address] [place] [address] Care Team Providers Care Customer Support Executive Name Role Phone Unavailable Primary Care Provider [...]
--- OUTSIDE RECORDS SUMMARY | 2024-08-11 16:06 | XMS_ITS | Encounter Summary ---
Author Organization [employer] Address [address] [place] [address] 7 [place] [address] Care Team Providers Care Clinical Training Specialist Name Role Phone Anna Jaquez MD Primary Care Provide r Reason for Visit * Reason Comments Med Refill Encounter Details Date Type Department Care Team (Late st Contact Info) Description 07/22/2023 Refill [facility] MEDICINE 230 [place], [place] [phone] Anna Jaquez MD 230 [place], [place] [phone] Migraine without status migrainosus, not intractable, unspecified [...] documented as of this encounter Care Teams Clinical Training Specialist Relationship Specialty Start Date End Date Anna Jaquez MD 230 [place] [address] PCP - General Family Medicine 01/08/18 documented as of this encounter
== END 2024-08-11 13:45 | disposition home or self-care (01) ==
LOC: HO.MAMMO 13:44
PROVIDERS: PCP Internal Medicine; Visit Provider Internal Medicine
DX: Z12.31 Encounter for screening mammogram for malignant neoplasm of breast (principal)
CPT/HCPCS: 77063; 77067

== ENCOUNTER → 2024-08-11 14:15 | Outpatient (BNV) | payer MEDICARE, SELFPAY | PROVIDERS: PCP Internal Medicine; Visit Provider Internal Medicine | DX: Z12.31 Encounter for screening mammogram for malignant neoplasm of breast (principal) | CPT/HCPCS: 77063; 77067 ==

== ENCOUNTER 2024-10-13 10:24 | Outpatient (AMB) | payer MEDICARE, SELFPAY ==
--- NOTE | 2024-10-13 10:36 | A.OFFVIS_ITS ---
Vital Signs 10/13/24 10:39 Height 5 ft BP 104/64 Intake Visit Reasons: vag inf Laborer Adjustable Steel Joist Required: Yes Laborer Adjustable Steel Joist Language: Tax Investigator Services: Laborer Adjustable Steel Joist Present Laborer Adjustable Steel Joist Name: Valentine Information Interpreted: non-clinical & clinical Toys And Games Hand Finisher: To[employer] Games Hand Finisher Present (Valentine) Allergies No Known Allergies Allergy (Verified 10/13/24 10:38) Is last menstrual period known: Yes Last menstrual period: 09/24/24 HPI Comments Details: Patient here with concerns for symptoms of vaginal odor and cramping. History of BV treated 3 times in the years. Admits 2 finger cleaning. She denies any pe lvic pain or urinary symptoms. Menses are regular.. [facility] Medical History Heavy menses History of abnormal cervical Pap smear ASCUS of cervix with negative high risk HPV Pelvic pain Club foot of both lower extremities Depression with anxiety Surgical History Hx of unilateral oophorectomy History of tubal ligation Family History Brother Colon cancer Mother Ureter cancer Social History Alcohol intake: current Alcohol intake frequency: a few times a week Current occupational status: disabled Current occupation: Left Handed Sexual orientation: Straight/Heterosexual Gender identity: Female Female Reproductive History Menstrual Age of Menarche: 9 Date of last menstrual period: 09/24/24 Review of Systems Const All systems reviewed & are unremarkable except as noted in HPI and below Physical Exam Vital Signs: Last Vital Signs BP 104/64 10/13/24 10:39 Const General: cooperative, healthy appearing and no acute distress Orientation/consciousness: patient oriented x3 GI Inspection: Yes normal to inspection Palpation (GI): Soft to palpation and Other GI palpation findings present (Nontender) Rectal Exam - Female: visual inspection normal General: Yes bladder normal to palpation External Female Exam: normal appearance of the urethra Speculum Exam - Vagina: normal appearance of the vagina, normal palpation and abnormal vaginal discharge yellow Speculum Exam - Cervix: normal appearance of the cervix and normal palpation Bimanual exam- vagina & uterus: normal bimanual exam, normal palpation, uterine size normal, bladder normal to palpation, normal palpation, uterine shape normal and non-tender Bimanual Exam- Adnexa, other: normal adnexae Neuro General: patient oriented x3 Assessment & Plan Assessment & Plan (1) Vaginal odor: Code(s): N89.8 - Other specified noninflammatory disorders of vagina Category: Medical Plan GC chlamydia and BV panel obtained await results for final plan of care. Prescription for Flagyl sent to pharmacy. Counseled: Advised to complete all medication. Possible GI upset-take medication with food. Avoid vinegar products-salad dressing, and pickles. NO ALCOHOL use during treatment and including up to 48 hours after medication is completed. Advised not to do sure finger cleaned. Reviewed role of probiotics with gut biome and vaginal martin. The patient expressed understanding and agreement with the plan of care. All of her questions and concerns were addressed to the best of my ability. This note is constructed using voice recognition software. While every effort has been made to ensure accuracy, customer care specialist errors may have been included. Orders: Orders Bacterial Vaginosis Panel Today N89.8 - Other specified noninflammatory disorders of vagina CT NG by PCR Vag/Cerv Today N89.8 - Other specified noninflammatory disorders of vagina Medications: Refilled metronidazole 500 mg PO Q12H 14 tabs 0RF Coding Level of Care Code Est Pt Level 3 (87707) Diagnoses Vaginal odor N89.8
[2024-10-13 10:39] VITALS: BP 104/64
--- OUTSIDE RECORDS SUMMARY | 2024-10-13 12:03 | XMS_ITS | Encounter Summary ---
Author Organization [facility] [employer] Address [address] [place] [address] 7 [place] [address] Care Team Providers Care Apprentice Technician Name Role Phone Anna Jaquez MD Primary Care Provide r Reason for Visit * Reason Comments Med Refill Encounter Details Date Type Department Care Team ([facility] st Contact Info) Description 11/11/2023 Refill [facility] MEDICINE [address] [place], [place] [phone] Anna Jaquez MD [address] [place] [address] Mild intermittent asthma without complication Social History [...] as of this encounter Plan of Treatment Upcoming Encounters Date Type Department Care Team (Late st Contact Info) Description 12/05/2024 9:15 AM EDT Office Visit [facility] MEDICINE [address] [place] [address] Anna Jaquez MD [address] [place] [address] documented as of this encounter Visit Diagnoses Diagnosis Mild intermittent asthma without complication documented in this encounter Additional Health Concerns Assessment Noted Time PHQ-9 Depression Total Score: 0 09/30/19 24 2:21 PM EDT documented as of this encounter Care Teams Apprentice Technician Relationship Specialty Start Date End Date Anna Jaquez MD [address] [place], [place] [phone] PCP - General Family Medicine 01/08/18 documented as of this encounter
== END 2024-10-13 12:16 | disposition home or self-care (01) ==
LOC: HO.HWS 10:24
PROVIDERS: PCP Internal Medicine; Visit Provider Advanced Practice Midwife
DX: N89.8 Other specified noninflammatory disorders of vagina (principal)
CPT/HCPCS: 99213

== ENCOUNTER 2024-10-13 10:24 | Outpatient (REF) | payer MEDICARE, SELFPAY ==
[2024-10-13 18:25] LABS: Bacterial Vaginosis PCR POSITIVE (Negative); Candida Group PCR NOT DETECTED (Not Detect); Candida glab krusei PCR NOT DETECTED (Not Detect); Trichomonas vaginalis PCR NOT DETECTED (Not Detect)
[2024-10-13 18:58] LABS: CT PCR NOT DETECTED (Not Detect.); NG PCR NOT DETECTED (Not Detect.)
== END 2024-10-13 10:25 | disposition home or self-care (01) ==
LOC: HO.LAB 10:24
PROVIDERS: PCP Internal Medicine; Visit Provider Advanced Practice Midwife
DX: N89.8 Other specified noninflammatory disorders of vagina (principal)
CPT/HCPCS: 81515; 87491; 87591; 99212

== ENCOUNTER 2024-10-13 11:00 | Outpatient (REF) | payer MEDICARE, SELFPAY | END 2024-10-13 11:01 | disposition home or self-care (01) | LOC: HO.LNP 11:00 | PROVIDERS: Visit Provider Advanced Practice Midwife | DX: Z13.89 Encounter for screening for other disorder (principal) ==

== ENCOUNTER 2025-02-14 11:14 | Outpatient (AMB) | payer MEDICARE, MEDICAID, SELFPAY ==
[2025-02-14 11:17] VITALS: BP 116/84; BMI 35.2
--- NOTE | 2025-02-14 11:17 | A.OFFVIS_ITS ---
Vital Signs 02/14/25 11:17 Height 5 ft Weight 180 lb BMI 35.2 BP 116/84 Intake Visit Reasons: abnormal uterine bleeding/per BM Sccm Administrator Required: Yes Sccm Administrator Language: Marriage Therapist Name: Mylene [id number] Information Interpreted: non-clinical & clinical Claim Processor: Claim Processor Present (Lilibeth) Allergies No Known Allergies Allergy (Verified 02/14/25 11:17) Is last menstrual period known: Yes Last menstrual period: 02/06/25 HPI Comments Details: Patient is here today with frequent spotting. UPT is negative. She denies any abnormal discharge, odors, pelvic pain or urinary symptoms. [facility] Medical History Heavy menses History of abnormal cervical Pap smear ASCUS of cervix with negative high risk HPV Pelvic pain Club foot of both lower extremities Depression with anxiety Surgical History Hx of unilateral oophorectomy History of tubal ligation Family History Brother Colon cancer Mother Ureter cancer Social History Alcohol intake: current Alcohol intake frequency: a few times a week Current occupational status: disabled Current occupation: Left Handed Sexual orientation: Straight/Heterosexual Gender identity: Female Female Reproductive History Menstrual Age of Menarche: 9 Date of last menstrual period: 02/06/25 Review of Systems Const All systems reviewed & are unremarkable except as noted in HPI and below Physical Exam Vital Signs: Last Vital Signs BP 116/84 02/14/25 11:17 BMI result Body Mass Index 35.2 Const General: cooperative, healthy appearing and no acute distress Orientation/consciousness: patient oriented x3 GI Inspection: Yes normal to inspection Palpation (GI): Soft to palpation and Other GI palpation findings present (Nontender) Rectal Exam - Female: visual inspection normal General: Yes bladder normal to palpation External Female Exam: normal appearance of the urethra Speculum Exam - Vagina: normal appearance of the vagina, normal palpation and normal vaginal discharge Speculum Exam - Cervix: normal appearance of the cervix and normal palpation Bimanual exam- vagina & uterus: normal bimanual exam, normal palpation, uterine size normal, bladder normal to palpation, normal palpation, uterine shape normal and non-tender Bimanual Exam- Adnexa, other: normal adnexae Neuro General: patient oriented x3 Results AMB Test Urine AMB Test Urine Negative Last Edit by SAMANTHA Quintero on 02/14/25 11:31 AMB Urinalysis, Automated UA Leukoctes 0.5 Jermaine/uL Last Edit by SAMANTHA Quintero on 02/14/25 11:3 1 UA Nitrite Negative Last Edit by Natalia Mane [facility] on 02/14/25 11:31 UA Urobilinogen 0 mg/dL Last Edit by Natalia Mane [facility] on 02/14/25 11:3 1 UA Protein 0 mg/dL Last Edit by Natalia Mane Cami on 02/14/25 11:31 UA pH 6.0 Last Edit by Natalia Mane [facility] on 02/14/25 11:31 UA Blood 0 Judson/uL Last Edit by Natalia Mane Cami on 02/14/25 11:31 UA Specific [employer] 1.020 Last Edit by Natalia Mane [facility] on 02/14/25 11:31 UA Ketone Negative Last Edit by Natalia Mane Cami on 02/14/25 11:31 UA Bilirubin 0 mg/dL Last Edit by Natalia Mane [facility] on 02/14/25 11:31 UA Glucose 0 mg/dL Last Edit by Natalia Mane [facility] on 02/14/25 11:31 Results Reviewed Results Reviewed: Laboratory Last Values Urine pH (Auto) 6.0 02/14/25 11:26 Specific [employer] (Auto) 1.020 02/14/25 11:26 Urine Protein (Auto) 0 mg/dL 02/14/25 11:26 Glucose (UA)(Auto) 0 mg/dL 02/14/25 11:26 Urine Ketones (Auto) Negative 02/14/25 11:26 Urine Blood (Auto) 0 Judson/uL 02/14/25 11:26 Urine Nitrite (Auto) Negative 02/14/25 11:26 Urine Bilirubin (Auto) 0 mg/dL 02/14/25 11:26 Urine Urobilinogen (Auto) 0 mg/dL 02/14/25 11:26 Leukocyte Esterase (Auto) 0.5 Jermaine/uL 02/14/25 11:26 Tst Clinic Negative 02/14/25 11:26 Assessment & Plan Assessment & Plan (1) Abnormal uterine bleeding (AUB): Code(s): N93.9 - Abnormal uterine and vaginal bleeding, unspecified Plan Plan pelvic ultrasound and workup, GC chlamydia and BV panel obtained. Labs to be done by PCP already on order we will need to be fasting, patient reviewed to have her labs done and to be NPO. Follow up pending ultrasound results. Monitor menses report any heavier prolonged bleeding episodes. The patient expressed understanding and agreement with the plan of care. All of her questions and concerns were addressed to the best of my ability. This note is constructed using voice recognition software. While every effort has been made to ensure accuracy, research assistant errors may have been included. Orders: Orders AMB HCG Urine Test Today Z32.02 - Encounter for test, result negative AMB Urinalysis Automated Today N93.9 - Abnormal uterine and vaginal bleeding, unspecified CT NG by PCR Vag/Cerv Today Z11.3 - Encounter for screening for infections with a predominantly sexual mode of transmission Bacterial Vaginosis Panel Today Z11.3 - Encounter for screening for infections with a predominantly sexual mode of transmission Coding Level of Care Code Est Pt Level 3 (03938) Diagnoses Abnormal uterine bleeding (AUB) N93.9
== END 2025-02-14 13:53 | disposition home or self-care (01) ==
PROVIDERS: PCP Internal Medicine; Visit Provider Advanced Practice Midwife
DX: N93.9 Abnormal uterine and vaginal bleeding, unspecified (principal); Z32.02 Encounter for pregnancy test, result negative
CPT/HCPCS: 99213

== ENCOUNTER 2025-02-14 11:14 | Outpatient (REF) | payer MEDICARE, SELFPAY ==
--- OUTSIDE RECORDS SUMMARY | 2025-02-14 15:18 | XMS_ITS | Encounter Summary ---
Author Organization [employer] Address [address] [facility] 7t [place] [address] Care Team Providers Care Transition Rn Name Role Phone Anna Jaquez MD Primary Care Provide r Reason for Visit * Reason Onset Date Comments Med Refill 12/09/2024 Encounter Details Date Type Department Care Team (Late st Contact Info) Description 12/09/2024 Refill [facility] MEDICINE [address] [place], [place] [phone] Anna Jaquez MD [address] [place] [address] Mild intermittent asthma without complication Social History [...] documented as of this encounter Care Teams Transition Rn Relationship Specialty Start Date End Date Anna Jaquez MD [address] [place] [phone] PCP - General Family Medicine 01/08/18 documented as of this encounter
--- OUTSIDE RECORDS SUMMARY | 2025-02-14 15:18 | XMS_ITS | Encounter Summary ---
Author Organization [employer] Address [address] [facility] [address] [place] [address] Care Team Providers Care Radio Installer Name Role Phone Anna Jaquez MD Primary Care Provide r Reason for Visit * Reason Onset Date Comments Nurse Triage 10/20/2022 Encounter Details Date Type Department Care Team (Late st Contact Info) Description 10/20/2022 Telephone [facility] MEDICINE [address] [place], [place] [phone] Anna Jaquez MD [address] [place], [place] [phone] Nurse Triage Social History Tobacco Use Types [...] 10/20/2022 12:06 PM EDT Triage call with [place] [employer] Teacher [place] [id number] Pt reports constant headaches for quite a while . Pt reports taking ibuprofen for these headaches . At time of call headache is mild and no blurry vision but, on occasion vision becomes blurred. Neg for fever or injury. Pt requests to be seen for tests to be done. Advised to come to [facility] today to be seen by provider and Pt agrees. Protocol [...] accepted this outcome Please contact pt at [phone] Maori Speaker documented in this encounter Plan of Treatment Not on file documented as of this encounter Visit Diagnoses Not on filedocumented in this encounter Care Teams Radio Installer Relationship Specialty Start Date End Date Anna Jaquez MD [address] [place] [id number] PCP - General Family Medicine 01/08/18 documented as of this encounter
--- OUTSIDE RECORDS SUMMARY | 2025-02-14 15:18 | XMS_ITS | Encounter Summary ---
Author Organization [employer] Address [address] [facility] [address]t [place] [address] Care Team Providers Care Hydrometallurgical Engineer Name Role Phone Anna Jaquez MD Primary Care Provide r Reason for Visit * Reason Onset Date Comments Med Refill 12/14/2024 Encounter Details Date Type Department Care Team (Late st Contact Info) Description 12/14/2024 Refill [facility] MEDICINE [address] [place], [place] [phone] Anna Jaquez MD [address] [place] [address] Mild intermittent asthma without complication Social History [...] documented as of this encounter Care Teams Hydrometallurgical Engineer Relationship Specialty Start Date End Date Anna Jaquez MD [address] [place] [id number] PCP - General Family Medicine 01/08/18 documented as of this encounter
--- OUTSIDE RECORDS SUMMARY | 2025-02-14 15:18 | XMS_ITS | Encounter Summary ---
Author Organization [employer] Address [address] [place] [address] Care Team Providers Care Milk Processing Worker Name Role Phone Anna Jaquez MD Primary Care Provide r Encounter Details Date Type Department Care Team ([facility] st Contact Info) Description 08/17/2024 Orders Only [facility] [address] [place], [place] [phone] ProviderMarshall MD Social History Tobacco Use Types [...] Procedure Name Priority Date/Time Associated Diagnosis Comments HM PAP/HPV Routine 08/03/2024 10:57 AM EDT documented in this encounter Results * HM PAP/HPV (08/03/2024 10:57 AM EDT) us Historical Provider HEALTH MAINTENANCE Final Result documented in this encounter Visit Diagnoses Not on filedocumented in this encounter Additional Health Concerns Assessment Noted Time PHQ-9 Depression Total Score: 0 09/30/19 24 2:21 PM EDT documented as of this encounter Care Teams Milk Processing Worker Relationship Specialty Start Date End Date Anna Jaquez MD [address] [place] [id number] PCP - General Family Medicine 01/08/18 documented as of this encounter
--- OUTSIDE RECORDS SUMMARY | 2025-02-14 15:18 | XMS_ITS | Encounter Summary ---
Author Organization [employer] Address [address] [facility] [address]t [place] [address] Care Team Providers Care Reference Test Clerk Name Role Phone Anna Jaquez MD Primary Care Provide r Reason for Visit * Reason Comments Med Refill Encounter Details Date Type Department Care Team ([facility] st Contact Info) Description 07/22/[address] [facility] MEDICINE [address] [place], [place] [phone] Anna Jaquez MD [address] [place] [address] Migraine without status migrainosus, not intractable, unspecified [...] documented as of this encounter Care Teams Reference Test Clerk Relationship Specialty Start Date End Date Anna Jaquez MD [address] [place] [address] PCP - General Family Medicine 01/08/18 documented as of this encounter
--- OUTSIDE RECORDS SUMMARY | 2025-02-14 15:18 | XMS_ITS | Clinical Summary ---
Author Organization [facility] Address [address] [place] [address] Care Team Providers Care Supervisor Meter Shop Name Role Phone Unavailable Primary Care Provider [...] Last Done Comments Breast Cancer Screening 1978 Colorectal Cancer Screening: Colonoscopy 1978 DTaP,Tdap,and Td Vaccines (1 - Tdap) 1997 Hepatitis B Vaccines (1 of 3 - 19+ 3-dose series) 1997 Cervical Cancer Screening: P ap Smear 12/24/1999 HIV Screening 03/23/2022 Hepatitis C Screening 03/23/2022 Social Influencers of Health Screening 03/23/2022 Depression Screening 04/20/2024 COVID-19 Vaccine ( - 2023-2 5 season) 2024 Influenza Vaccine (#1) 2024 RSV Immunization Adult Patie nts (1 - 1-dose 75+ series) 2053 HIB Vaccines Aged Out No longer eligi [...] 5 Years) and At-Risk Patients (6 to 49 Years) Aged Out No longer eligible b ased on patient's age to complete this topic RSV Immunization Patients Un masood 20 months Aged Out No longer eligible b ased on patient's age to complete this topic Varicella Vaccines Aged Out No longer eligible based on patient's age to complete this topic
--- OUTSIDE RECORDS SUMMARY | 2025-02-14 15:18 | XMS_ITS | Clinical Summary ---
Author Organization [employer] Address [address] [facility] 7t [place] [address] Care Team Providers Care Software Technical Lead Name Role Phone Anna Jaquez MD Primary Care Provide r Allergies No known active allergies Medications ibuprofen 800 MG tablet TAKE 1 TABLET BY MOUTH THREE TIMES DAILY WITH FOOD NEEDED 06/11/19 23 Active naproxen (Naprosyn) 500 MG tabletIndicatio ns:Pain TAKE 1 TABLET BY MOUTH TWICE DAILY EVERY 12 HOURS NEEDED FOR PAIN 03/27/20 23 Active SUMAtriptan (Imitrex) 25 MG tabletIndicatio ns:Migraine without aura and without status migrainosus, not intractable Take 1 tablet (25 mg) by mouth 1 (one) time if needed for migraine for up to 36 doses. May repeat dose once in 2 hours if no relief. Do not exceed 2 doses in 24 hours. 9 tablet 3 10/14/19 25 Active amitriptyline (Elavil) 10 MG tabletIndicatio ns:Migraine without status migrainosus, not intractable, unspecified migraine type Take 1 tablet (10 mg) by mouth at bedtime. 30 tablet 3 10/14/19 25 Active fluticasone furoate (Arnuity Ellipta) 200 MCG/ACT inhalerIndicati ons:Moderate persistent asthma, unspecified whether complicated Inhale 1 puff Once per day. Rinse mouth with water after use to reduce aftertaste and incidence of candidiasis. Do not swallow. 1 each 11 02/07/20 25 026 Active montelukast (Singulair) 10 MG tabletIndicatio ns:Moderate persistent asthma, unspecified whether complicated Take 1 tablet (10 mg) by mouth Once per day. 30 tablet 5 02/07/20 25 026 Active albuterol 108 (90 Base) MCG/ACT inhalerIndicati ons:Encounter for preventive care INHALE 2 PUFFS BY MOUTH EVERY 6 HOURS NEEDED FOR WHEEZING 18 g 3 02/07/20 25 Active docusate sodium (Colace) 100 MG capsuleIndicati ons:Slow transit constipation Take 1 capsule (100 mg) by mouth 2 times daily. 60 capsule 1 02/07/20 25 025 Active albuterol 108 (90 Base) MCG/ACT inhalerIndicati ons:Mild intermittent asthma without complication INHALE 2 PUFFS BY MOUTH EVERY 6 HOURS NEEDED FOR WHEEZING 18 g 1 11/30/19 25 025 Discontinued(R eorder (will not trigger notification to Pharmacy)) Active Problems Problem Noted Date Diagnosed Date Moderate asthma 02/06/2025 Assessment & Plan (02/06/2025 4:37 PM EDT): Patient educated to avoid triggers Diagnosis updated to moderate persistent asthma based on frequency and severity of symptoms. - Prescribed daily inhaled corticosteroid for maintenance therapy. Instructed to rinse mouth after use to prevent oral fungal infection. Prescribed montelukast for allergic component of asthma. Ordered nebulizer machine, pending insurance approval. - Risks and side effects: Discussed risk of oral fungal infection with inhaled corticosteroid; instructed to rinse mouth after use. Encounter for preventive care 02/06/2025 Assessment & Plan (02/06/2025 4:35 PM EDT): See HPI Class 2 severe obesity due t o excess calories with serious comorbidity and body mass index (BMI) of 35.0 to 35.9 in adult 02/06/2025 Assessment & Plan (02/06/2025 4:39 PM EDT): Dietary counseling: - Recommended increasing fiber intake, drinking more water, and considering probiotics to regulate digestive function. Exercise counseling: - Recommended achieving at least 150 minutes of moderate-intensity exercise per week, or 75 minutes of vigorous-intensity exercise per week. Slow transit constipation 02/06/2025 Assessment & Plan (02/06/2025 4:40 PM EDT): He was prescribed for patient Colace He was advised to add more fiber and water to her diet and try to walk more Genital warts 09/30/2023 Bilateral post-traumatic osteoarthritis of knee 09/30/2023 Arthritis of right hip 09/30/2023 Polyarthralgia 09/30/2023 Assessment & Plan (02/06/2025 4:36 PM EDT): Rheumatology referral information provided Elevated LFTs 05/11/2023 Assessment & Plan (09/30/2023 4:26 PM EDT): LFTS and lipid panel will be re-check Assessment & Plan (05/13/2023 2:03 PM EST): I will continue to monitor her LFTs, right now its to soon in about 3-6 months I advise healthy diet Migraine 04/16/2023 Overview (04/16/2023): Continues with sumatriptan 25mg PRN Assessment & [...] weeks televisit Healthcare maintenance 04/15/2023 Overview (04/16/2023): Pap: 12/16/21 NILM, HPV neg ([facility]) Mammo: reported hx of breast biopsy & mammo at [facility]. Records requested Colonoscopy: routine screening starting at 45 y/o Last PE: 04/15/23 Assessment & Plan (04/16/2023 4:43 PM EST): -Routine labwork ordered, declined STI since no new partners since last sexual encounter Chloanikiaa 12/04/2017 04/15/2023 Tibia anupama 02/06/2012 04/15/2023 Assessment & Plan (04/16/2023 11:12 AM EST): Following with [facility] Ortho Resolved Problems Problem Noted Date Diagnosed Date Resolved Date Mild intermittent asthma without complication 09/30/19 24 02/06/2025 Assessment & Plan (09/30/2023 4:26 PM EDT): Patient educated to avoid asthma triggers Albuterol inhaler to be used PRN q 4-6hrs prescribed Encounters Date Type Department Care Team Description 02/08/[address] [address] Anna Jaquez MD DME Nebulizer 02/08/[address] [address] Anna Jaquez MD DME Nebulizer 02/06/2025 10:15 AM EDT Office Visit [address] [address] Anna Jaquez MD Polyarthralgia (Primary Dx); Dietary counseling; Exercise counseling; Class 2 obesity due to excess calories without serious comorbidity with body mass index (BMI) of 35.0 to 35.9 in adult; Moderate persistent asthma, unspecified whether complicated; Encounter for preventive care; Class 2 severe obesity due to excess calories with serious comorbidity and body mass index (BMI) of 35.0 to 35.9 in adult; Slow transit constipation 02/06/2025 Travel 02/03/[address] [address] Anna Jaquez MD Chart Prep 01/26/2025 Patient Outreach [address] [address] Anna Jaquez MD Medicare Annual Wellness Visit Initial (SDOH screening negative and tobacco screening negative) 12/21/2024 10:40 AM EDT Office Visit [facility] [address] [place] [phone] [place], Kailyn, POST ADOPTION COORDINATOR Mild intermittent asthma with (acute) exacerbation (Primary Dx); Cough in adult patient 12/21/2024 Travel 12/14/2024 Refill [facility] [address] [place] [phone] Anna Jaquez MD Mild intermittent asthma without complication 12/09/2024 Refill [facility] [address] [place] [phone] Anna Jaquez MD Mild intermittent asthma without complication 12/05/2024 Telephone [facility] [address] [place] [phone] Anna Jaquez MD No Show 12/02/2024 Telephone [facility] [address] [place] [phone] Anna Jaquez MD Chart Prep 11/28/2024 Refill [facility] [address] [place] [phone] Anna Jaquez MD Mild intermittent asthma without complication 11/28/2024 Patient Outreach [facility] [address] [place], [place] [phone] Anna Jaquez MD Pre-visit Planning ([facility] unable to reach [facility]) 11/17/2024 Refill [facility] [address] [place] [phone] Anna Jaquez MD Mild intermittent asthma without complication from Last 3 Months Immunizations Immunization Administration Dates Next Due Hep B, adult [...] is your housing situation today? I have lucazay ashley 01/26/[address] you li ve. Do you have problems with any of the following? None of the above 01/26/2025 Food Insecurity Answer Date Recorded Within the past 12 months, y ou worried that your food would run out before you got money to buy more: Never True 01/26/2025 Within the past 12 months,th e food you bought just didn't last and you didn't have enough money to get more: Never True 12/2024 Transportation Answer Date Recorded In the past 12 months, has l ack of transportation kept you from medical appts, meetings, work or from getting things needed for daily living? No 01/26/2025 Utilities Answer Date Recorded In the past 12 months, has t he electric, gas, oil or water company threatened to shut off services in your home? Yes 01/26/2025 Depression Answer Date Recorded Patient Health Questionnaire-2 Score 0 09/30/2023 Internet Access Answer Date Recorded Internet Access Q1 Yes 01/26/2025 Internet Access Q2 Not on file 01/26/2025 Comments No Sex and Gender Information Value Date Recorded Sex Assigned at Female 02/17/2022 10:14 AM EDT Legal Sex Female 10:14 AM EDT Gender Identity Female 10/20/2022 3:55 PM EDT Sexual Orientation Straight 10/20/2022 3: 55 PM EDT Last Filed Vital Signs Vital Sign Reading Time Taken Comments Blood Pressure 140/84 02/06/2025 10:22 AM EDT Pulse 84 02/06/2025 10:22 AM EDT Temperature 36.1 C (97 F) 02/06/2025 10:22 AM EDT Respiratory Rate 15 02/06/2025 10:22 AM EDT Oxygen Saturation 93% 02/06/2025 10:22 AM EDT Inhaled Oxygen Concentration - - Weight 81.6 kg (180 lb) 02/06/2025 10:22 AM EDT Height 152.4 cm (5') 02/06/2025 10:22 AM EDT Body Mass Index 35.15 02/06/2025 10:22 AM EDT Plan of Treatment Health Maintenance Due Date Last Done Comments CT Colonography 1978 Colonoscopy 1978 Colorectal Cancer Screening 1978 FIT DNA/Cologuard 1978 FIT 1978 FOBT 1978 Sigmoidoscopy 1978 Disability Screening 1978 Alcohol/Substance Use Screening 1990 Family Planning (PISQ) 1993 Pneumococcal Vaccine: Pediatrics (0 to 5 Years) and At-Risk Patients (6 to 49) Years (1 of 2 - PCV) 1997 Hepatitis B Vaccines (2 of 3 - 19+ 3-dose series) 10/01/2006 09/03/2006 Depression Screening 09/29/2024 09/30/2023, 09/30/2023 COVID-19 Vaccine ( - 2024-2 6 season) 2024 02/19/2021, 01/29/2021 Influenza Vaccine (#1) 2024 05/06/2012 Mammogram 08/11/2025 08/11/2024, 07/31/2023, 01/28/2019 SDOH Screening 01/26/2026 01/26/2025 Tobacco Screening 02/06/2026 02/06/2025 Cervical Cancer Screening 08/04/2027 HPV/Cotest 08/04/2027 12/16/2021, 12/16/2021 Pap Smear 08/04/2027 08/03/2024, 03/30/2023 DTaP/Tdap/Td Vaccines (2 - T d or Tdap) 01/16/2028 01/15/2018, 10/06/2006 Lipid Panel 09/29/2028 09/30/2023, 04/17/2023 Zoster Vaccines (1 of 2) 2028 RSV [...] Procedure Name Priority Date/Time Associated Diagnosis Comments POCT INFLUENZA B (ID NOW RAPID MOLECULAR) Routine 12/21/2024 11:06 AM EDT Mild intermittent asthma with (acute) exacerbation POCT INFLUENZA A (ID NOW RAPID MOLECULAR) Routine 12/21/2024 11:06 AM EDT Mild intermittent asthma with (acute) exacerbation POCT RAPID COVID ANTIGEN Routine 12/21/2024 10:44 AM EDT Mild intermittent asthma with (acute) exacerbation BI MAMMOGRAM SCREENING TOMOSYNTHESIS BILATERAL Routine 08/11/2024 1:50 PM EDT HM PAP/HPV Routine 08/03/2024 10:57 AM EDT LIPID PANEL, STANDARD Routine 09/30/2023 3:01 PM EDT Elevated LFTs ZZZ HISTORICAL HIV AB/AG Routine 12/18/2021 12:11 PM EDT ZZZ HISTORICAL HPV E6/E7 RFLX ANDREE 16 18/45 Routine 12/16/2021 11:46 AM EDT from Last 3 Months or Most Recently Relevant to Health Maintenance Results * Influenza B (ID NOW Rapid Molecular) (12/21/2024 11:06 AM EDT) [facility] Influenza B Negative Negative, Indeterminate [facility] Swab 12/21/2024 11:0 6 AM EDT [facility] POST ADOPTION COORDINATOR POINT OF CARE TEST ENTER/EDIT ORDERABLES Final Result Performing Organization Address City/[facility]/ZIP Co de Phone Number [facility] [address] [place] [phone] * Influenza A (ID NOW Rapid Molecular) (12/21/2024 11:06 AM EDT) [facility] Influenza A Negative Negative, Indeterminate [facility] Swab 12/21/2024 11:0 6 AM EDT [facility] POST ADOPTION COORDINATOR POINT OF CARE TEST ENTER/EDIT ORDERABLES Final Result Performing Organization Address [facility] Co de Phone Number [facility] [address] [place] [phone] * POCT Rapid COVID Ag (12/21/2024 10:44 AM EDT) [facility] Rapid COVID Ag Negative Swab 12/21/2024 10:4 4 AM EDT [facility] POST ADOPTION COORDINATOR POINT OF CARE TEST ENTER/EDIT ORDERABLES Final Result * BI Mammogram Screening Tomosynthesis Bilateral (08/11/2024 1:50 PM EDT) Anatomical Region Laterality Modality Breast Bilateral Mammography 08/11/2024 1:50 PM EDT Narrative 08/19/2024 5:07 PM EDT [address] [place] [address] Mammography Report Signed Patient: Nae Joseph MR#: [id number] : 1980 Acct:[id number] Age/Sex: 43 / F ADM Date: 08/11/24 Loc: HO.MAMMO Attending Dr: Anna Ireland MD Ordering Physician: Anna Jaquez MD Results: 2Benign Findings Date of Service: 08/11/24 Follow Up: 1 Year From Orig inal Mammogram Procedure(s): MM tomosynthesis screening BI Accession Number(s): [id number] cc: Anna Jaquez MD EXAMINATION: MM SCREENING DIGITAL BREAST TOMOSYNTHESIS, BILATERAL CLINICAL INFORMATION: Screening. Asymptomatic. COMPARISON: Mammography: Comparison is made with available priors TECHNIQUE: Digital breast mammography with tomosynthesis is performed in both the craniocaudal and mediolateral oblique views along with computer-aided detection (CAD). FINDINGS: The breasts are heterogeneously dense, which may obscure small masses (ACR BI-RADS breast composition Category c). Left marker clip. There are no significant masses, abnormal calcifications, or other abnormalities. MM/MM tomosynthesis screening BI IMPRESSION: No mammographic evidence of malignancy. ASSESSMENT: BI-RADS BI-RADS 2 - Benign Findings RECOMMENDATION: Routine annual mammography screening. 1 year F/U This examination should not preclude the clinical evaluation of a suspicious palpable abnormality. This patient's information was entered into a reminder system with a target due date for their next mammogram. Electronically signed by: Lindsey Verma DO 08/19/2024 05:04 PM EDT Dictated By: Lindsey Verma DO Signed By: <Electronically signed by Lindsey Verma DO in OV> 08/19/24 1704 DD/ 1350 TD/TT: 08/11/24 1405 Certified Alcohol Drug Counselor: Procedure Note Donotuseinterpreter, Image - 08/19/2024 [facility] [address] [place] [address] Dr. [place], [place] [address] Mammography Report Signed Patient: Aan Joseph#: [id number] : 1980Acct:[id number] Age/Sex: 43 / FADM Date: 08/11/24 Loc: HO.MAMMO Attending Dr: Anna Ireland MD Ordering Physician: Anna Jaquez MDResults: 2Benign Findings Date of Service: 08/11/24Follow Up: 1 Year From Orig ina Mammogram Procedure(s): MM tomosynthesis screening BI Accession Number(s): [id number] cc: Anna Jaquez MD EXAMINATION: MM SCREENING DIGITAL BREAST TOMOSYNTHESIS, BILATERAL CLINICAL INFORMATION: Screening. Asymptomatic. COMPARISON: Mammography: Comparison is made with available priors TECHNIQUE: Digital breast mammography with tomosynthesis is performed in both the craniocaudal and mediolateral oblique views along with computer-aided detection (CAD). FINDINGS: The breasts are heterogeneously dense, which may obscure small masses (ACR BI-RADS breast composition Category c). Left marker clip. There are no significant masses, abnormal calcifications, or other abnormalities. MM/MM tomosynthesis screening BI IMPRESSION: No mammographic evidence of malignancy. ASSESSMENT: BI-RADS BI-RADS 2 - Benign Findings RECOMMENDATION: Routine annual mammography screening. 1 year F/U This examination should not preclude the clinical evaluation of a suspicious palpable abnormality. This patient's information was entered into a reminder system with a target due date for their next mammogram. Electronically signed by: Lindsey Verma DO 08/19/2024 05:04 PM EDT Dictated By: Lindsey Verma DO Signed By: <Electronically signed by Lindsey Verma DO in OV> 08/19/24 1704 DD/ 1350 TD/TT: 08/11/24 1405 Certified Alcohol Drug Counselor: us Anna Ireland MD IMG BI PROCEDURES Fin al Result * HM PAP/HPV (08/03/2024 10:57 AM EDT) us Historical Provider HEALTH MAINTENANCE Final Result * (ABNORMAL) Lipid Panel, Standard (09/30/2023 3:01 PM EDT) Triglycerides 103 <150 mg/dL [facility] Comment:Desirable Triglyceri de: less than 150 mg/dLBorderline High Triglyceride 150-199 mg/dLHigh Triglyceride: 200-499 mg/dLVery High Triglyceride: greater than or equal to 5OO mg/dL Cholesterol 210(H) <200 mg/dL [facility] Comment:Desirable Cholestero l: less than 200 mg/dLBorderline High Cholesterol: 200-239 mg/dLHigh Cholesterol: greater than 239 mg/dL LDL Cholesterol Calculated 129(H) <100 mg/dL [facility] Comment:Desirable LDL: less than 100 mg/dLNear Optimal/Above Optimal LDL: 110- 129 mg/dLBorderline High LDL: 130-159 mg/dLHigh LDL: 160-189 mg/dLVery High LDL: greater than or equal to 190 mg/dL HDL Cholesterol 61 >40 mg/dL [facility] Comment:Desirable HDL: great er than 40 mg/dL Note: This HDL assay may give artificially low results in patients with liver disease. Blood Venous blood specimen / Unknown 09/30/2023 3:01 PM EDT 09/30/2023 4:05 PM EDT Anna Ireland MD LAB BLOOD ORDERABLES Final Result [facility] [address] [place] [phone] * HIV AB/AG (12/18/2021 12:11 PM EDT) [facility] HIV AB/AG Nonreactive Nonreactive [facility] Comment: HIV-1 p24 Ag and/or HIV-1/HIV-2 Ab not detected. A test result that is nonreactive does not exclude the possibility of exposure to or infection with HIV-1 and/or HIV-2. Nonreactive results in this assay for individuals with prior exposure to HIV-1 and/or HIV-2 may be due to antigen and antibody levels that are below the limit of detection of this assay. The Walker Social Worker HIV Ag/Ab Combo assay result and supplemental assay results should be interpreted in conjunction with the patient's clinical presentation, history and other laboratory results. If the results are inconsistent with clinical evidence, additional testing is suggested to confirm the result. Hepatitis B Core Antibody Nonreactive Nonreactive [facility] Hepatitis C Antibody Nonreactive Nonreactive [facility] Comment: Antibodies to HCV not detected; does not exclude early acute HCV infection. 12/18/2021 12:1 1 PM EDT us Dawna Oh HISTORICAL/NON ORDERABLE LABS Fi nal Result Performing Organization Address [facility] de Phone Number [facility] [address] * HPV E6/E7 RFLX ANDREE 16 18/45 (12/16/2021 11:46 AM EDT) HPV 16 RNA TNP [facility] HPV 18/45 RNA [facility] HPV E6 E7 ADD [facility]NP [facility] HPV mRNA E6/E7 rflx Not Detected Not Detected [facility] Comment: Methodology: Heel Scourer-Mediated Amplification This assay detects E6/E7 viral messenger RNA (mRNA) from 14 high-risk HPV types (16,18,31,33,35,39,45,51,52,56,58,59,66,68). Cervical sources are required for HPV testing. If a vaginal source from a patient who has had a total hysterectomy with removal of cervix was submitted, please contact the testing laboratory for alternative testing options. For additional information, please refer to http://education.[employer] [place]/faq/XRX688e1 (This link if provided for information/ educational purposes only.) THIS TEST WAS PERFORMED AT: [facility] [address] [place] [address],[place] [address] DYLON HUSAIN MD 12/16/2021 11:4 6 AM EDT us Dawna Haqueoney HISTORICAL/NON ORDERABLE LABS Fi nal Result Performing Organization Address [facility] de Phone Number [facility] [address] from Last 3 Months or Most Recently Relevant to Health Maintenance Insurance [facility] STANDARD [employer]ET[employer] MEDICARE REPLACEMENT Care Teams Software Technical Lead Relationship Specialty Start Date End Date Anna Jaquez MD [address] [place] [phone] PCP - General Family Medicine 01/08/18
--- OUTSIDE RECORDS SUMMARY | 2025-02-14 15:18 | XMS_ITS | Encounter Summary ---
Author Organization [employer] Address [address] [facility] 7t [place] [address] Care Team Providers Care Veneer Clipper Helper Name Role Phone Anna Jaquez MD Primary Care Provide r Reason for Visit * Reason Comments Med Refill Encounter Details Date Type Department Care Team ([facility] st Contact Info) Description 11/17/2024 Refill [facility] [address] [place], [place] [phone] Anna Jaquez MD [address] [place], [place] [phone] Mild intermittent asthma without complication Social History [...] documented as of this encounter Care Teams Veneer Clipper Helper Relationship Specialty Start Date End Date Anna Jaquez MD [address] [place] [phone] PCP - General Family Medicine 01/08/18 documented as of this encounter
--- OUTSIDE RECORDS SUMMARY | 2025-02-14 15:18 | XMS_ITS | Encounter Summary ---
Author Organization [employer] Address [address] [facility] [address]t [place] [address] Care Team Providers Care Line Crewman Name Role Phone Anna Jaquez MD Primary Care Provide r Reason for Visit * Reason Comments Med Refill Encounter Details Date Type Department Care Team ([facility] st Contact Info) Description 11/11/2023 Refill [facility] [address] [place], [place] [phone] Anna Jaquez MD [address] [place], [place] [phone] Mild intermittent asthma without complication Social History [...] documented as of this encounter Care Teams Line Crewman Relationship Specialty Start Date End Date Anna Jaquez MD [address] [place] [phone] PCP - General Family Medicine 01/08/18 documented as of this encounter
--- OUTSIDE RECORDS SUMMARY | 2025-02-14 15:18 | XMS_ITS | Encounter Summary ---
Author Organization [employer] Address [address] [facility] [address] 7[address] [place] [address] Care Team Providers Care Market Research Lead Name Role Phone Anna Jaquez MD Primary Care Provide r Encounter Details Date Type Department Care Team ([facility] st Contact Info) Description 02/08/2024 Orders Only [facility] [address] [place] [address] ProviderMarshall MD Social History Tobacco Use Types [...] housing situation today? I have lucazay ashley 04/03/[address] you [...] documented as of this encounter Care Teams Market Research Lead Relationship Specialty Start Date End Date Anna Jaquez MD [address] [place] [phone] PCP - General Family Medicine 01/08/18 documented as of this encounter
[2025-02-14 16:31] LABS: Bacterial Vaginosis PCR POSITIVE (Negative); Candida Group PCR NOT DETECTED (Not Detect); Candida glab krusei PCR NOT DETECTED (Not Detect); Trichomonas vaginalis PCR NOT DETECTED (Not Detect)
[2025-02-14 17:00] LABS: CT PCR NOT DETECTED (Not Detect.); NG PCR NOT DETECTED (Not Detect.)
== END 2025-02-14 11:15 | disposition home or self-care (01) ==
LOC: HO.LNP 11:14
PROVIDERS: PCP Internal Medicine; Visit Provider Advanced Practice Midwife
DX: N93.9 Abnormal uterine and vaginal bleeding, unspecified (principal); Z20.2 Contact with and (suspected) exposure to infections with a predominantly sexual mode of transmission; Z32.02 Encounter for pregnancy test, result negative; Z98.51 Tubal ligation status
CPT/HCPCS: 81003; 81025; 81515; 87491; 87591; 99212

== ENCOUNTER 2025-03-20 09:25 | Outpatient (REF) | payer MEDICARE, MEDICAID, SELFPAY ==
[2025-03-20 09:38] LABS: MANUAL DIFF FLAG NO
[2025-03-20 10:38] LABS: Hematocrit 41.3 % (37.0-47.0); Hemoglobin 13.5 g/dl (12.0-16.0); Imm Gran Abs Auto 0.04 X10*3/uL (0.00-0.03); Imm Gran Pct Auto 0.3 % (0.0-0.4); Lymphocytes Absolute Auto 3.2 X10*3/uL (1.2-4.9); Mean Corpuscular HGB Conc 32.7 g/dl (31.0-35.0); Mean Corpuscular Hemoglobin 29.7 pg (27.0-33.0); Mean Corpuscular Volume 91.0 fL (80.0-98.0); NRBC Abs Auto 0.000 X10*3/uL (0.0-0.012); NRBC Pct Auto 0.0 /100WBC (0.0-0.2); Platelet Count 215 X10*3/uL (160-400); Red Blood Count 4.54 X10*6/uL (4.20-5.50); White Blood Count 12.3 X10*3/uL (4.8-10.8)
--- OUTSIDE RECORDS SUMMARY | 2025-03-20 11:09 | XMS_ITS | Clinical Summary ---
Author Organization [facility] Address [address] [place] [address] Care Team Providers Care Pipe Bowl Paint Trimmer Name Role Phone Unavailable Primary Care Provider [...] Depression Screening 04/20/2024 COVID-19 Vaccine ( - 2024-2 6 season) 2024 Influenza Vaccine (#1) 2024 RSV [...]
--- OUTSIDE RECORDS SUMMARY | 2025-03-20 11:09 | XMS_ITS | Clinical Summary ---
Author Organization [employer] Address [address] [facility] 7t [place] [address] Care Team Providers Care Coil Inspector Name Role Phone Anna Jaquez MD Primary [...] mouth at bedtime. 30 tablet 3 5 Active fluticasone furoate (Arnuity Ellipta) 200 MCG/ACT inhalerIndication s:Moderate persistent asthma, unspecified whether complicated Inhale 1 puff Once per day. Rinse mouth with water after use to reduce aftertaste and incidence of candidiasis. Do not swallow. 1 each 5 02/07/20 Active montelukast (Singulair) 10 MG tabletIndications :Moderate persistent asthma, unspecified whether complicated Take 1 tablet (10 mg) by mouth Once per day. 30 tablet 5 5 08/06/19 26 Active albuterol 108 (90 Base) MCG/ACT inhalerIndication s:Encounter for preventive care INHALE 2 PUFFS BY MOUTH EVERY 6 HOURS NEEDED FOR WHEEZING 18 g 3 5 Active docusate sodium (Colace) 100 MG capsuleIndication s:Slow transit constipation Take 1 capsule (100 mg) by mouth 2 times daily. 60 capsule 1 5 04/07/20 25 Active Active Problems Problem Noted Date Diagnosed [...] Overview (04/16/2023): Pap: 12/16/21 NILM, [place] neg [place] Mammo: reported hx of breast biopsy & [place] [facility] Records requested Colonoscopy: routine screening starting at 45 y/o Last PE: 04/15/23 Assessment & Plan (04/16/2023 4:43 PM EST): -Routine labwork ordered, declined STI since no new partners since last sexual encounter [facility] 12/04/2017 04/15/2023 Tibia vara 02/06/2012 04/15/2023 Assessment & Plan (04/16/2023 11:12 AM EST): [place] with [facility] Resolved Problems Problem Noted Date Diagnosed Date Resolved Date Mild intermittent asthma without complication 09/30/19 24 02/06/2025 Assessment & Plan (09/30/2023 4:26 PM EDT): Patient educated to avoid asthma triggers Albuterol inhaler to be used PRN q 4-6hrs prescribed Encounters Date Type Department Care Team Description 02/14/2025 Orders Only GENERIC EXTERNAL DATA DEPARTMENT Provider, Generic External Data 02/08/[address] [address] Anna Jaquez MD DME Nebulizer 02/08/[address] [address] Anna Jaquez MD DME Nebulizer 02/06/2025 10:15 AM EDT Office Visit [address] [address] Anna Jaquez MD Polyarthralgia (Primary Dx); Dietary [...] Slow transit constipation 02/06/2025 Travel 02/03/[address] [address] Anna Jaquez MD Chart Prep 01/26/2025 Patient Outreach [address] [address] Anna Jaquez MD Medicare Annual Wellness Visit Initial (SDOH screening negative and tobacco screening negative) 12/21/2024 10:40 AM EDT Office Visit [facility] [address] [place] [address] [phone] [facility] Mild intermittent asthma with (acute) exacerbation (Primary Dx); Cough in adult patient 12/21/2024 Travel from Last 3 Months Immunizations Immunization Administration [...] housing situation today? I have luca ashley 01/26/[address] you [...] Depression Screening 09/29/2024 09/30/2023, 09/30/2023 COVID-19 Vaccine (3 - 2024-2 6 season) 2024 02/19/2021, 01/29/2021 [...] Procedure Name Priority Date/Time Associated Diagnosis Comments CBC WITH AUTO DIFFERENTIAL Routine 03/20/2025 9:37 AM EST Encounter for preventive care CHLAMYDIA/N. GONORRHOEAE RNA, TMA, UROGENITAL Routine 02/14/2025 11:14 AM EDT BACTERIAL VAGINOSIS PANEL Routine 02/14/2025 11:14 AM EDT POCT INFLUENZA B (ID NOW RAPID MOLECULAR) [...] Recently Relevant to Health Maintenance Results * (ABNORMAL) CBC auto differential (03/20/2025 9:37 AM EST) White Blood Count 12.3(H) 4.8 - 10.8 X10*3/uL [facility] Red Blood Count 4.54 4.20 - 5.50 X10*6/uL [facility] Hemoglobin 13.5 12.0 - 16.0 g/dl [facility] Hematocrit 41.3 37.0 - 47.0 % [facility] Mean Corpuscular Volume 91.0 80.0 - 98.0 fL [facility] Mean Corpuscular Hemoglobin 29.7 27.0 - 33.0 pg [facility] Mean Corpuscular HGB Conc 32.7 31.0 - 35.0 g/dl [facility] Red Cell Distribution Width 13.3 11.0 - 16.0 % [facility] Platelet Count 215 160 - 400 X10*3/uL [facility] Mean Platelet Volume 13.0(H) 9.4 - 12.3 fL [facility] Neutrophils Percent Auto 60.0 45 - 73 % [facility] Imm Gran Pct Auto 0.3 0.0 - 0.4 % [facility] Lymphocytes Percent Auto 25.9 20 - 40 % [facility] Monocytes Percent Auto 8.4 2 - 11 % [facility] Eosinophils Percent Auto 4.4(H) 0 - 4 % [facility] Basophils Percent Auto 1.0 0 - 2 % [facility] NRBC Pct Auto 0.0 0.0 - 0.2 /100WBC [facility] Neutrophils Absolute Auto 7.4 2.0 - 8.3 x10*3/uL [facility] Imm Gran Abs Auto 0.04(H) 0.00 - 0.03 X10*3/uL [facility] Lymphocytes Absolute Auto 3.2 1.2 - 4.9 X10*3/uL [facility] Monocytes Absolute Auto 1.0 0.1 - 1.2 X10*3/uL [facility] Eosinophils Absolute Auto 0.5(H) 0.0 - 0.4 X10*3/uL [facility] Basophils Absolute Auto 0.1 0.0 - 0.2 X10*3/uL [facility] NRBC Abs Auto 0.000 0.0 - 0.012 X10*3/uL [facility] Blood Venous blood specimen / Unknown 03/20/2025 9:37 AM EST 03/20/2025 9:37 AM EST us Anna Ireland MD LAB BLOOD ORDERABLES Final Result [facility] [address] [place] [phone] * (ABNORMAL) Bacterial Vaginosis (02/14/2025 11:14 AM EDT) TRICHOMONAS VAGINALIS DETECTION BY PCR NOT DETECTED Not Detect [facility] BACTERIAL VAGINOSIS DETECTION BY PCR POSITIVE(A) Negative [facility] Comment:The BV organism targ ets of the Xpert Xpress MVP test can becommensal in women; Xpert Xpress MVP positive results forbacterial vaginosis should be considered in conjunction withother clinical and patient information to determine thedisease status. Organisms that are not detected by the XpertXpress MVP test have also been reported to be associatedwith BV and aerobic vaginitis.The Xpert Xpress MVP test performance has not been evaluatedin patients under the age of 14. ANASTASIA GROUP DETECTION BY PCR NOT DETECTED Not Detect [facility] Anastasia glab krusei PCR NOT DETECTED Not Detect [facility] 02/14/2025 11:1 4 AM EDT 02/14/2025 3:13 PM EDT us Generic External Data Provider LAB MICROBIOLOGY - GENERAL ORDERABLES Final Result [facility] [address] [place] [phone] * Chlamydia/N. Gonorrhoeae RNA, TMA, Urogenitial (02/14/2025 11:14 AM EDT) CT PCR NOT DETECTED Not Detect. [facility] Comment:A not detected test result does not exclude the possibilityof infection because test results can be affected byimproper specimen collection, concurrent antibiotic therapy,or the number of organisms in the specimen which may bebelow the sensitivity of the test. As with many diagnostictests, results from the Xpert CT/NG assay should beinterpreted in conjunction with other laboratory andclinical data available to the clinician.Xpert CT/NG performance has not been evaluated in patientsless than 14 years of age. The assay should not be used forthe evaluationof suspected sexual abuse or for other medico-legalindications. Additional testing is recommended in anycircumstance when false positive or false negative resultscould lead to adverse medical, social or psychologicalconsequences. NG PCR NOT DETECTED Not Detect. [facility] Comment:A not detected test result does not exclude the possibilityof infection because test results can be affected byimproper specimen collection, concurrent antibiotic therapy,or the number of organisms in the specimen which may bebelow the sensitivity of the test. As with many diagnostictests, results from the Xpert CT/NG assay should beinterpreted in conjunction with other laboratory andclinical data available to the clinician.Xpert CT/NG performance has not been evaluated in patientsless than 14 years of age. The assay should not be used forthe evaluationof suspected sexual abuse or for other medico-legalindications. Additional testing is recommended in anycircumstance when false positive or false negative resultscould lead to adverse medical, social or psychologicalconsequences. 02/14/2025 11:1 4 AM EDT 02/14/2025 3:13 PM EDT Generic External Data Provider LAB MICROBIOLOGY - GENERAL ORDERABLES Final Result Performing Organization Address [facility] Co de Phone Number [facility] [address] [place] [phone] * Influenza B (ID NOW Rapid Molecular) (12/21/2024 11:06 AM EDT) Influenza B Negative Negative, Indeterminate [facility] Swab 12/21/2024 11:0 6 AM EDT Result [facility] POINT OF CARE TEST ENTER/EDIT ORDERABLES Final Result Performing Organization Address [facility] de Phone Number [facility] [address] [place] [phone] * Influenza A (ID NOW Rapid Molecular) (12/21/2024 11:06 AM EDT) Influenza A Negative Negative, Indeterminate [facility] Swab 12/21/2024 11:0 6 AM EDT [facility] POINT OF CARE TEST ENTER/EDIT ORDERABLES Final Result Performing Organization Address [facility] Co de Phone Number [facility] [address] [place] [phone] * POCT Rapid COVID Ag (12/21/2024 10:44 AM EDT) Rapid COVID Ag Negative Swab 12/21/2024 10:4 4 AM EDT [facility] POINT OF CARE TEST ENTER/EDIT ORDERABLES Final Result * BI Mammogram Screening Tomosynthesis Bilateral (08/11/2024 1:50 PM EDT) Anatomical Region Laterality Modality Breast Bilateral Mammography 08/11/2024 1:50 PM EDT Narrative 08/19/2024 5:07 PM EDT [facility] [place] [address] Mammography Report Signed Patient: Nae Joseph MR#: [id number] : 1980 Acct:[id number] Age/Sex: 43 / F ADM Date: 08/11/24 Loc: HO.MAMMO Attending Dr: Anna Ireland MD Ordering Physician: Anna Jaquez MD Results: 2Benign Findings Date of Service: 08/11/24 Follow Up: 1 Year From [facility] Mammogram Procedure(s): MM tomosynthesis screening BI Accession Number(s): [id number] cc: Anna Jaquez MD EXAMINATION: MM SCREENING [...] 08/19/24 1704 DD/ 1350 TD/TT: 08/11/24 1405 Field Tech: Procedure Note Donotuseinterpreter, Image - 08/19/2024 [facility] [address] [place] [address] Mammography Report Signed Patient: Ana Joseph#: [id number] : 1980Acct:[id number] Age/Sex: 43 / FADM Date: 08/11/24 Loc: HO.MAMMO Attending Dr: Anna Ireland MD Ordering Physician: Anna Jaquez MDResults: 2Benign Findings Date of Service: 08/11/24Follow Up: 1 Year From Orig inal Mammogram Procedure(s): MM tomosynthesis screening BI Accession Number(s): [id number] cc: Anna Jaquez MD EXAMINATION: MM SCREENING [...] Lindsey Verma DO 08/19/2024 05:04 PM EDT RP Dictated By: Lindsey Verma DO Signed By: <Electronically signed by Lindsey Verma DO in OV> 08/19/24 1704 DD/ 1350 TD/TT: 08/11/24 1405 Field Tech: us Anna Ireland MD IMG BI PROCEDURES Fin al Result * HM PAP/HPV (08/03/2024 10:57 AM EDT) us Historical Provider HEALTH MAINTENANCE Final Result * (ABNORMAL) Lipid Panel, Standard (09/30/2023 3:01 PM EDT) Triglycerides 103 <150 mg/dL [facility] Comment:Desirable Triglyceri de: less than 150 mg/dLBorderline High Triglyceride 150-199 mg/dLHigh Triglyceride: 200-499 mg/dLVery High Triglyceride: greater than or equal to 5OO mg/dL Cholesterol 210(H) <200 mg/dL [facility] Comment:Desirable Cholestero l: less than 200 mg/dLBorderline High Cholesterol: 200-239 mg/dLHigh Cholesterol: greater than 239 mg/dL LDL Cholesterol Calculated 129(H) <100 mg/dL [facility] Comment:Desirable LDL: less than 100 mg/dLNear Optimal/Above Optimal LDL: 110- 129 mg/dLBorderline High LDL: 130-159 mg/dLHigh LDL: 160-189 mg/dLVery High LDL: greater than or equal to 190 mg/dL HDL Cholesterol 61 >40 mg/dL [facility] Comment:Desirable HDL: great er than 40 mg/dL Note: This HDL assay may give artificially low results in patients with liver disease. Blood Venous blood specimen / Unknown 09/30/2023 3:01 PM EDT 09/30/2023 4:05 PM EDT us Anna Ireland MD LAB BLOOD ORDERABLES Final Result [facility] [address] [place] [phone] * HIV AB/AG (12/18/2021 12:11 PM EDT) Pathologist [facility] HIV AB/AG Nonreactive Nonreactive [facility] [...] of detection of this assay. The Walker Production Planning Supervisor HIV Ag/Ab Combo assay result and supplemental assay results should be interpreted in conjunction with the patient's clinical presentation, history and other laboratory results. If the results are inconsistent with clinical evidence, additional testing is suggested to confirm the result. Hepatitis B Core Antibody Nonreactive Nonreactive [facility] Hepatitis C Antibody Nonreactive Nonreactive [facility] Comment: Antibodies to HCV not detected; does not exclude early acute HCV infection. 12/18/2021 12:1 1 PM EDT Dawna Casiano HISTORICAL/NON ORDERABLE LABS Fi nal Result Performing Organization Address City/[facility]/ZIP Co de Phone Number [facility] [address] * HPV E6/E7 RFLX ANDREE 16 18/45 (12/16/2021 11:46 AM EDT) Pathologist [facility] HPV 16 RNA [facility] HPV 18/45 RNA [facility] HPV E6 E7 ADD [facility] HPV mRNA E6/E7 rflx Not Detected Not Detected [facility] Comment: Methodology: Server Programmer-Mediated Amplification This assay detects E6/E7 viral messenger RNA (mRNA) from 14 high-risk HPV types (16,18,31,33,35,39,45,51,52,56,58,59,66,68). Cervical sources are required for HPV testing. If a vaginal source from a patient who has had a total hysterectomy with removal of cervix was submitted, please contact the testing laboratory for alternative testing options. For additional information, please refer to http://education.KnewCoin/faq/SBS818e9 (This link if provided for information/ educational purposes only.) THIS TEST WAS PERFORMED AT: [employer] [address] [place] [address] [address]LO[address],[place] [address] DYLON HUSAIN MD 12/16/2021 11:4 6 AM EDT us Dawna Casiano HISTORICAL/NON ORDERABLE LABS Fi nal Result [facility] [address] from Last 3 Months or Most Recently Relevant to Health Maintenance Insurance [facility] [employer] MEDICARE REPLACEMENT Care Teams Coil Inspector Relationship Specialty Start Date End Date Anna Jaquez MD [address] [place] [phone] PCP - General Family Medicine 01/08/18
--- OUTSIDE RECORDS SUMMARY | 2025-03-20 11:09 | XMS_ITS | Encounter Summary ---
Author Organization [employer] Address [address] [facility] 7t [place] [address] Care Team Providers Care Business Performance Specialist Name Role Phone Anna Jaquez MD Primary Care Provide r Reason for Visit * Reason Onset Date Comments Med Refill 12/09/2024 Encounter Details Date Type Department Care Team (Late st Contact Info) Description 12/09/2024 Refill [facility] [address] [place], [place] [phone] Anna Jaquez MD [address] [place] [address] Mild intermittent asthma without complication Social History [...] documented as of this encounter Care Teams Business Performance Specialist Relationship Specialty Start Date End Date Anna Jaquez MD [address] [place] [phone] PCP - General Family Medicine 01/08/18 documented as of this encounter
--- OUTSIDE RECORDS SUMMARY | 2025-03-20 11:09 | XMS_ITS | Encounter Summary ---
Author Organization [employer] Address [address] [facility] [address] 7t [place] [address] Care Team Providers Care Community Support Professional Name Role Phone Anna Jaquez MD Primary Care Provide r Encounter Details Date Type Department Care Team ([facility] st Contact Info) Description 02/08/2024 Orders Only [facility] MEDICINE [address] [place] [address] ProviderMarshall MD Social History Tobacco Use Types [...] documented as of this encounter Care Teams Community Support Professional Relationship Specialty Start Date End Date Anna Jaquez MD [address] [place] [phone] PCP - General Family Medicine 01/08/18 documented as of this encounter
--- OUTSIDE RECORDS SUMMARY | 2025-03-20 11:09 | XMS_ITS | Encounter Summary ---
Author Organization [employer] Address [address] [facility] [address] [place] [address] Care Team Providers Care Maternity Floor Supervisor Name Role Phone Anna Jaquez MD Primary Care Provide r Encounter Details Date Type Department Care Team ([facility] st Contact Info) Description 08/17/2024 Orders Only [facility] [address] [place], [place] [phone] ProviderMarshall MD Social History Tobacco Use Types [...] documented as of this encounter Care Teams Maternity Floor Supervisor Relationship Specialty Start Date End Date Anna Jaquez MD [address] [place] [phone] PCP - General Family Medicine 01/08/18 documented as of this encounter
--- OUTSIDE RECORDS SUMMARY | 2025-03-20 11:09 | XMS_ITS | Encounter Summary ---
Author Organization [employer] Address [address] [facility] 7t [place] [address] Care Team Providers Care Hand Drawer In Helper Name Role Phone Anna Jaquez MD Primary Care Provide r Reason for Visit * Reason Onset Date Comments Nurse Triage 10/20/2022 Encounter Details Date Type Department Care Team (Late st Contact Info) Description 10/20/2022 Telephone [facility] [address] [place], [place] [phone] Anna Jaquez MD [address] [place] [address] Nurse Triage Social History Tobacco Use Types [...] 10/20/2022 12:06 PM EDT Triage call with [place] ID [id number] Pt reports constant headaches for quite a while . Pt reports taking ibuprofen for these headaches . At time of call headache is mild and no blurry vision but, on occasion vision becomes blurred. Negfor fever or injury. Pt requests to be seen for tests to be done. Advised to come to [facility] today mavis seen by provider [...] accepted this outcome Please contact pt at [phone] Barbadian Speaker documented in this encounter Plan of Treatment Not on file documented as of this encounter Visit Diagnoses Not on filedocumented in this encounter Care Teams Hand Drawer In Helper Relationship Specialty Start Date End Date Anna Jaquez MD [address] [place] [phone] PCP - General Family Medicine 01/08/18 documented as of this encounter
--- OUTSIDE RECORDS SUMMARY | 2025-03-20 11:09 | XMS_ITS | Encounter Summary ---
Author Organization [employer] Address [address] [facility] 7t [place] [address] Care Team Providers Care Reel Film Inspector Name Role Phone Anna Jaquez MD Primary Care Provide r Reason for Visit * Reason Onset Date Comments Med Refill 12/14/2024 Encounter Details Date Type Department Care Team (Late st Contact Info) Description 12/14/2024 Refill [facility] MED[facility]INE [address] [place], [place] [phone] Anna Jaquez MD [address] [place] [address] Mild intermittent asthma without complication Social History [...] documented as of this encounter Care Teams Reel Film Inspector Relationship Specialty Start Date End Date Anna Jaquez MD [address] [place] [phone] PCP - General Family Medicine 01/08/18 documented as of this encounter
--- OUTSIDE RECORDS SUMMARY | 2025-03-20 11:09 | XMS_ITS | Encounter Summary ---
Author Organization [employer] Address [address] [facility] 7t [place] [address] Care Team Providers Care Science Interpreter Name Role Phone Anna Jaquez MD Primary Care Provide r Reason for Visit * Reason Comments Med Refill Encounter Details Date Type Department Care Team ([facility] st Contact Info) Description 11/17/2024 Refill [facility] MEDICINE [address] [place], [place] [phone] Anna Jaquez MD [address] [place], [place] [phone] Mild intermittent asthma without complication Social History [...] documented as of this encounter Care Teams Science Interpreter Relationship Specialty Start Date End Date Anna Jaquez MD [address] [place] [phone] PCP - General Family Medicine 01/08/18 documented as of this encounter
--- OUTSIDE RECORDS SUMMARY | 2025-03-20 11:09 | XMS_ITS | Encounter Summary ---
Author Organization [employer] Address [address] [facility] 7t [place] [address] Care Team Providers Care Finish Filer Name Role Phone Anna Jaquez MD Primary Care Provide r Reason for Visit * Reason Comments Med Refill Encounter Details Date Type Department Care Team ([facility] st Contact Info) Description 07/22/2023 Refill [facility] [address] [place], [place] [phone] Anna Jaquez MD [address] [place] [address] Migraine without status migrainosus, not intractable, unspecified [...] documented as of this encounter Care Teams Finish Filer Relationship Specialty Start Date End Date Anna Jaquez MD [address] [place] [address] PCP - General Family Medicine 01/08/18 documented as of this encounter
--- OUTSIDE RECORDS SUMMARY | 2025-03-20 11:09 | XMS_ITS | Encounter Summary ---
Author Organization [employer] Address [address] [facility] 7t [place] [address] Care Team Providers Care Internal Audit Manager Name Role Phone Anna Jaquez MD Primary Care Provide r Reason for Visit * Reason Comments Med Refill Encounter Details Date Type Department Care Team ([facility] st Contact Info) Description 11/11/2023 Refill [facility] MEDICINE [address] [place], [place] [phone] Anna Jaquez MD [address] [place], [place] [phone] Mild intermittent asthma without complication Social History [...] documented as of this encounter Care Teams Internal Audit Manager Relationship Specialty Start Date End Date Anna Jaquez MD [address] [place] [phone] PCP - General Family Medicine 01/08/18 documented as of this encounter
[2025-03-20 11:28] LABS: HIV Num 1 0.07 S/CO (0.00-0.99); ~HepC Num1 0.11 S/CO (0.00-0.79); ~Hepatitis C Antibody Nonreactive (Nonreactive)
[2025-03-20 11:33] LABS: Alanine Aminotransferase 21 U/L (0-31); Albumin Level 3.8 g/dL (3.5-5.0); Alkaline Phosphatase 70 U/L (39-117); Anion Gap 10 (12-20); Aspartate Amino Transferase 28 U/L (5-31); Blood Urea Nitrogen 14 mg/dL (9-16); Calcium 9.0 mg/dL (8.4-10.2); Carbon Dioxide 25 mmol/L (22-29); Chloride 111 mmol/L (96-108); Cholesterol 192 mg/dL (<200); Estimated Glomerular Filt Rate > 60; HDL Cholesterol 55 mg/dL (>40); Potassium 3.7 mmol/L (3.3-5.1); Sodium 142 mmol/L (135-145); Total Protein 6.8 g/dL (6.5-8.0); Triglycerides 109 mg/dL (<150)
[2025-03-20 11:53] LABS: Hemoglobin A1C 148.7207 umol/L
== END 2025-03-20 09:26 | disposition home or self-care (01) ==
LOC: HO.LAB 09:25
PROVIDERS: PCP Internal Medicine; Visit Provider Internal Medicine
DX: Z00.00 Encounter for general adult medical examination without abnormal findings (principal); Z11.4 Encounter for screening for human immunodeficiency virus [HIV]; Z11.59 Encounter for screening for other viral diseases; Z13.1 Encounter for screening for diabetes mellitus; Z13.29 Encounter for screening for other suspected endocrine disorder; Z13.6 Encounter for screening for cardiovascular disorders; Z13.21 Encounter for screening for nutritional disorder
CPT/HCPCS: 36415; 80053; 80061; 82306; 83036; 84443; 85025; 86803; 87389